=== PATIENT | female | born 1995 | race Caucasian/White ===

== ENCOUNTER 2021-02-04 08:09 | Day surgery (SDC) | payer OTHER, SELFPAY ==
[2021-02-04] VITALS (10 sets, daily range): BP systolic 90–128; BP diastolic 50–93; PULSE 79–105; RESP 14–18; TEMP 35.9–36.9; O2SAT 98–100
[2021-02-04] MEDS: SODIUM CHLORIDE 0.9% IV 1,000 ML 999 ML IV CONT (08:35)
[2021-02-04] MEDS: GLUCAGON FOR INJ 1 MG VIAL IV PUSH (08:36)
[2021-02-04] MEDS: ONDANSETRON INJ 4 MG/2 ML VIAL IV PUSH (08:36)
[2021-02-04] MEDS: NITROGLYCERIN OINTMENT 1 INCH DOSE TRANSDERM (08:38)
[2021-02-04] MEDS: Please add drug allergy info to patient profile. 1 EACH XX (08:39)
--- NOTE | 2021-02-04 09:06 | PC.NURSE ---
PT was feeling better, given water and unable to swallow.
[2021-02-04] MEDS: LACTATED RINGERS 1,000 ML 150 ML IV CONT (10:54)
--- NOTE | 2021-02-04 11:12 | P.PNAN_ITS ---
Anes - Initial Pre Proc Eval Procedure: Operation Date: 02/04/21 11:45 Proposed Procedures p Esophagogastroduodenoscopy - Darrel Mccullough MD Date/Time: 02/04/21 11:12 Surgeon: Darrel Mccullough MD Pre Op Diagnosis: food bolus Patient Data Age: 25 Gender: F Height: Weight: Last Vital Signs Temp 96.6 F L 02/04/21 10:32 Pulse 84 02/04/21 10:32 Resp 14 02/04/21 10:32 BP 101/63 02/04/21 10:32 Pulse Ox 100 02/04/21 10:32 Allergies Allergy/AdvReac Type Severity Reaction Status Date / Time Sulfa (Sulfonamide Allergy Hives Verified 02/04/21 10:24 Antibiotics) metoclopramide [From Reglan] AdvReac Shakiness Verified 02/04/21 10:24 Home Medications Medication Instructions Recorded Confirmed Type No Home Medications 02/04/21 02/04/21 History Patient hx anesthesia problems: none Family hx anesthesia problems: none Results Review: All pre-operative results and documents have been reviewed as part of the pre-operative evaluation. [facility] Past Medical History Medical History (Updated 02/04/21 @ 09:13 by Consuelo Álvarez) Eosinophilic esophagitis Esophageal dilatation History of esophageal dilatation Social History Social History (Updated 02/04/21 @ 08:21 by Edilia Guidry MD) Smoking status: Never smoker Anes - Eval Final PreProcedure Day of Procedure 02/04/21 11:12 Patient weight: normal Heart: regular rate and rhythm Lungs: clear to auscultation Airway: Mallampati scale class II Neurological: alert and oriented Last oral intake: >/= 8 hours ASA classification: II Emergent: no Anesthetic plan: proceed Anesthesia type and monitoring: general GIVS and standard monitoring Results Review: All pre-operative results and documents have been reviewed as part of the pre-operative evaluation. Informed Consent: The patient's anesthetic plan and its attendant risks and benefits were discussed with the patient/family/POA. Questions were solicited and answers provided to the satisfaction of the patient/family/POA.
--- NOTE | 2021-02-04 11:16 | PM.HPGS ---
History of Present Illness History of Present Illness Consent: Risks, benefits, and alternatives have been discussed and questions answered. Patient agrees to proceed with procedure. Chief complaint: food bolus Narrative: Maria R Blair is a 25 year old female with known history of EoE currently on no treatment and not longer seeing GI since she moved here from [place], still with intermittent dysphagia, today could not swallow after having breakfast- egg sandwich. She required urgent EGD x2 in the past because food bolus. Review of Systems Constitutional: Constitutional: Denies headache(s) and Denies weakness Eyes: Eyes: Denies blurry vision ENT: Reports Normal hearing present, Denies headache(s) and Denies neck pain Cardiovascular: Cardiovascular: Denies chest pain and Denies dyspnea Respiratory: Respiratory: Denies dyspnea Gastrointestinal: Gastrointestinal: Reports no additional gastrointestinal complaints Genitourinary: Genitourinary: Denies dysuria Musculoskeletal: Musculoskeletal: Denies neck pain Integumentary/Breasts: Skin/Breast: Denies dry skin Neurologic: Reports Normal hearing present, Denies headache(s) and Denies weakness Psychiatric: Psychiatric: Denies anxiety Endocrine: Endocrine: Denies change in body appearance Hematologic/Lymphatic: Hematologic/Lymphatic: Denies easy bleeding Allergic/Immunologic: Allergic/Immunologic: Denies urticaria PMFSH Past Medical History Medical History (Updated 02/04/21 @ 11:19 by Darrel Mccullough MD) Eosinophilic esophagitis Esophageal dilatation History of esophageal dilatation Social History Social History (Updated 02/04/21 @ 08:21 by Edilia Guidry MD) Smoking status: Never smoker Meds Home Medications and Allergies Home Medications Medication Instructions Recorded Confirmed Type No Home Medications 02/04/21 02/04/21 History Allergies Allergy/AdvReac Type Severity Reaction Status Date / Time Sulfa (Sulfonamide Allergy Hives Verified 02/04/21 10:24 Antibiotics) metoclopramide [From Reglan] AdvReac Shakiness Verified 02/04/21 10:24 Vital Signs Vital Signs - 24 hr 02/04/21 10:32 Temperature 96.6 F L Pulse Rate 84 Respiratory Rate 14 Blood Pressure 101/63 Pulse Oximetry 100 Exam Const: General: comfortable and no acute distress HENMT: General nose exam: Normal nares present Eyes: General: appearance normal, both eyes and all related structures Neck: Neck: no JVD Resp: Auscultation: clear to auscultation bilaterally Cardio: Rate: regular rate Rhythm: regular rhythm GI: Inspection: non-distended GI Palp: Yes Soft to palpation Skin: General skin exam: normal color Neuro: General: gait normal Speech: normal speech Extrem: General: normal to inspection Psych: Mental Status: mental status grossly normal Assessment and Plan Assessment and plan (1) Food impaction of esophagus: Code(s): T18.128A - Food in esophagus causing other injury, initial encounter Status: Acute Assessment and Plan: egd (2) Eosinophilic esophagitis: Code(s): K20.0 - Eosinophilic esophagitis Status: Inactive Assessment and Plan: will get bx and start treatment with ppi and also swallowed fluticasone
[2021-02-04] MEDS: BENZOCAINE (*SP) 60 ML SPRAY CAN (HURRICAINE) 1 SPRAY MUCOUS MEM (11:25)
--- NOTE | 2021-02-04 18:26 | ER_ITS ---
This report was moved to the correct visit, on 04/04/2021. Original report was signed by Edilia Guidry MD on 02/04/21 [id number]. HPI - General Adult General Chief complaint: Unspecified Stated complaint: food bolus, esophageal stricture per pt Time Seen by Provider: 02/04/21 08:11 Source: patient and RN notes reviewed Mode of arrival: ambulatory Limitations: no limitations History of Present Illness HPI narrative: This is a 25 year old female with history of eosinophilic esophagitis with stricture who presents for evaluation of food impaction. Patient states this morning approximately 1 hour ago her breakfast got stuck in her esophagus. She was eating a Mcgriddle and she feels like it is stuck in her mid chest. She tried to drink water but it immediately came back up. She is unable to tolerate her secretions for more than 5 minutes. She denies shortness of breath. She reports frequent issue with food getting stuck but she is usually able to get it to down with carbonated drinks. In 2018 , she had to get food removed. She does not regularly seen gastroenterology and she does not take any medications. Related Data Allergies Allergy/AdvReac Type Severity Reaction Status Date / Time Sulfa (Sulfonamide Allergy Hives Verified 02/04/21 10:24 Antibiotics) metoclopramide [From Reglan] AdvReac Shakiness Verified 02/04/21 10:24 Review of Systems Review of Systems: All systems reviewed & are unremarkable except as noted in HPI and below PMFSH Past Medical History Medical History (Updated 02/04/21 @ 11:21 by Darrel Mccullough MD) Eosinophilic esophagitis Esophageal dilatation History of esophageal dilatation Social History Social History (Updated 02/04/21 @ 08:21 by Edilia Guidry MD) Smoking status: Never smoker Exam Narrative: GENERAL: Well-appearing, well-nourished, and in no acute distress. HEAD: Normocephalic, atraumatic EYES: PERRLA and EOMI, conjunctiva clear without discharge NECK: Supple, without lymphadenopathy or mass RESPIRATORY: No respiratory distress, Airway patent, Respirations non-labored, Clear to auscultation without rales, rhonchi or wheeze HEART: Regular rate and rhythm. No murmur heard. Normal peripheral pulses. ABDOMEN: Soft, nontender, nondistended, normal active bowel sounds. No masses. No rebound or guarding, No organomegaly. EXTREMITIES: No edema, normal strength with full range of motion. SKIN: Warm, dry, normal color without rash NEURO: Alert and oriented x3. CN 2-12 grossly intact. No focal deficits. PSYCH: Normal mood and affect. Course Reevaluation(s) Reevaluation #1: Patient stated that she felt better. She attempted to drink water but had emesis again. I spoke with Dr. Mccullough who states he will perform EGD on patient. Date: 02/04/21 Time: 09:09 Vital Signs Vital signs: Vital Signs Pulse Rate 105 H 02/04/21 08:22 Respiratory Rate 18 02/04/21 08:22 Blood Pressure 128/93 H 02/04/21 08:22 Pulse Oximetry 100 02/04/21 08:22 Temperature 98.5 F 02/04/21 08:25 Pulse Rate 95 02/04/21 10:16 Respiratory Rate 14 02/04/21 10:16 Blood Pressure 107/68 02/04/21 10:16 Pulse Oximetry 99 02/04/21 10:16 Medical Decision Making Vital Signs Vital Signs: Vital Signs Pulse Rate 105 H 02/04/21 08:22 Respiratory Rate 18 02/04/21 08:22 Blood Pressure 128/93 H 02/04/21 08:22 Pulse Oximetry 100 02/04/21 08:22
== END 2021-02-04 10:49 ==
LOC: ANHENDO 11:32 → ANHED 04-05 12:32 → ANHSURGERY 04-05 12:36
PROVIDERS: Emergency Provider Internal Medicine Gastroenterology; Visit Provider Internal Medicine Gastroenterology
PROC: 0DJ08ZZ Inspection of Upper Intestinal Tract, Via Natural or Artificial Opening Endoscopic (ICD-10-PCS; CPT 43235; principal; 2021-02-04 11:45)
DX: T18.128A Food in esophagus causing other injury, initial encounter (principal); R13.19 Other dysphagia; K20.0 Eosinophilic esophagitis; K44.9 Diaphragmatic hernia without obstruction or gangrene
CPT/HCPCS: 43239; 43249; 81025; 88305; 96361; 96374; 96375; 99285; A9270; C1726; J1610; J2405; J2704; J7030; J7120

== ENCOUNTER 2021-08-22 09:05 | Outpatient (CLI) | payer OTHER, SELFPAY ==
[2021-08-22 09:25] LABS: Hematocrit 43.5 % (37.0-47.0); Hemoglobin 13.5 g/dL (12.0-15.0); Mean Corpuscular Hemoglobin 28.4 pg (26-34); Mean Corpuscular Volume 91.4 fl (80-100); Platelet Count Result 295 k/mm3 (150-375); Red Blood Count 4.76 M/mm3 (4.2-5.4); Red Cell Distribution Width 12.5 % (11.5-14.5); White Blood Count 5.9 K/mm3 (4.5-10.0)
== END 2021-08-22 09:06 | disposition home or self-care (01) ==
LOC: ANHLAB 09:08
PROVIDERS: Visit Provider Obstetrics & Gynecology Gynecology
DX: R53.83 Other fatigue (principal)
CPT/HCPCS: 36415; 85027

== ENCOUNTER → 2021-11-14 15:27 | Outpatient (CLI) | payer OTHER, SELFPAY ==
--- NOTE | ~2021-11-14 | US_ITS ---
EXAMINATION: US OB <= 14 weeks fetus DATE: 11/14/2021 15:53 INDICATION: with uncertain dates. TECHNIQUE: Real-time transabdominal pelvic ultrasound was performed. COMPARISON: None. FINDINGS: The uterus measures 7.3 x 6.9 x 7.3 cm. There is an intrauterine gestational sac. A yolk sac is ident ified. The crown rump length measures 2.6 cm, which correlates with an estimated gestational a ge of 9 weeks and 3 day(s) (+/-) 6 day(s). heart motion is identified measuring 168 beats per m inute (bpm) by M-mode Doppler. The right ovary measures 2.5 x 1.7 x 2.3 cm. The left ovary is not vis ualized. There is no free fluid in the pelvis. IMPRESSION: 1. Single living intrauterine gestation with estimated date of delivery of 06/16/2022. Reviewed, dictated and finalized at location A. IMPRESSION: 1. Single living intrauterine gestation with estimated date of delivery of 06/16.
== END ==
PROVIDERS: PCP Advanced Practice Midwife; Visit Provider Advanced Practice Midwife
DX: Z36.87 Encounter for antenatal screening for uncertain dates (principal)
CPT/HCPCS: 76801

== ENCOUNTER 2021-12-12 13:20 | Outpatient (CLI) | payer OTHER, SELFPAY ==
[2021-12-12 13:47] LABS: Basophils Absolute Auto 0.1 K/mm3 (0.0-0.1); Basophils Percent Auto 0.5 % (0.2-1.2); Eosinophils Absolute Auto 0.4 K/mm3 (0-0.3); Eosinophils Percent Auto 4.5 % (0-4.4); Hematocrit 34.8 % (37.0-47.0); Hemoglobin 11.2 g/dL (12.0-15.0); Immature Granulocyte Absolute 0.03 K/mm3 (0.00-0.031); Immature Granulocyte Percent A 0.3 % (0-0.5); Lymphocytes Percent Auto 18.9 % (18.3-44.2); Mean Corpuscular HGB Conc 32.2 g/dl (32-36); Mean Corpuscular Hemoglobin 28.9 pg (26-34); Mean Corpuscular Volume 89.7 fl (80-100); Mean Platelet Volume 10.2 fl (7.4-10.4); Monocytes Absolute Auto 0.5 K/mm3 (0.1-0.6); Monocytes Percent Auto 5.4 % (2.6-8.5); Neutrophils Absolute Auto 6.7 K/mm3 (1.3-6.7); Neutrophils Percent Auto 70.4 % (45.5-73.1); Platelet Count Result 285 k/mm3 (150-375); Red Blood Count 3.88 M/mm3 (4.2-5.4); Red Cell Distribution Width 13.4 % (11.5-14.5); White Blood Count 9.5 K/mm3 (4.5-10.0)
[2021-12-12 15:16] LABS: HIV 1/2 Ab P24 Ag Result Negative (Negative)
[2021-12-12 17:04] LABS: Vitamin D 25 Hydroxy 26.5 ng/mL
[2021-12-12 17:34] LABS: Hepatitis C Virus Antibody Negative (Negative)
[2021-12-13 07:10] LABS: Rapid Plasma Reagin Non-Reactive (NonReactive)
[2021-12-13 23:11] LABS: Hepatitis B Surface Antigen Negative (Negative)
== END 2021-12-12 13:21 | disposition home or self-care (01) ==
PROVIDERS: PCP Advanced Practice Midwife; Visit Provider Advanced Practice Midwife
DX: E55.9 Vitamin D deficiency, unspecified (principal); Z36.9 Encounter for antenatal screening, unspecified
CPT/HCPCS: 36415; 82306; 82728; 83036; 85025; 86592; 86703; 86762; 86803; 86850; 86900; 86901; 87340; G0432

== ENCOUNTER → 2022-01-17 15:48 | Outpatient (CLI) | payer OTHER, SELFPAY ==
--- NOTE | ~2022-01-17 | US_ITS ---
EXAMINATION: US OB /maternal detail DATE: 01/17/2022 16:23 INDICATION: survey TECHNIQUE: Multiple obstetric sonographic images performed. FINDINGS: . Ultrasound dated 11/14/2021 There is a single living fetus in vertex presentation. The placenta is anterior without placenta pre via. Placental margin measures 7.2 cm to the cervix. Cervical length is 3.1 cm. Amniotic fluid volume is subjectively normal. cardiac activity and movement is noted with a heart rate o f 145 beats per minute. The following anatomy was identified as normal: 4 chamber heart 3 vessel cord cord insertion kidneys urinary bladder stomach spine diaphragm ventricles cisterna magna cerebellum The following biometric data were obtained: BPD: 43mm corresponds to gestational age 19 weeks 1 days. Head circumference: 160 mm corresponds to gestational age 18 weeks 6 days. Abdominal circumference: 134 mm corresponds to gestational age 18 weeks 6 days. Femur length: 26 mm corresponds to gestational age 17 weeks 6 days. Head circumference to abdominal circumference ratio: 1.19 (normal range for expected gestational age is 1.09-1.26). Estimated weight: 242 grams +/- 36 grams using Hadlock method. IMPRESSION: 1: Single living intrauterine with an estimated gestational age of 18weeks 4days by initial ultrasound measurements, with an EDC of 06/16/2022 in vertex presentation. 2. Normal survey. Reviewed, dictated and finalized at location B. IMPRESSION: 1: Single living intrauterine with an estimated gestational age of 18 weeks 4days by initial ultrasound measurements, with an EDC of 06/16/2022 in ve rtex presentation. 2. Normal survey.
== END ==
PROVIDERS: Visit Provider Advanced Practice Midwife
DX: Z36.9 Encounter for antenatal screening, unspecified (principal); Z3A.18 18 weeks gestation of pregnancy
CPT/HCPCS: 76805

== ENCOUNTER 2022-03-20 11:14 | Observation (INO) | payer OTHER, SELFPAY ==
--- NOTE | ~2022-03-20 | US_ITS ---
EXAMINATION: US abdomen limited DATE: 03/20/2022 14:08 INDICATION: gallbladder, gallbladder pain TECHNIQUE: Multiple grayscale and Doppler ultrasound images of limited portions of the abdomen were o btained. COMPARISON: None available. FINDINGS: The visualized portions of the pancreas are normal. Pancreatic body and tail are obscured. The liver is mildly enlarged, with normal echogenicity and echotexture. No surface nodularity. Normal hepatopetal flow in the main portal vein. The gallbladder wall is borderline thickened at 3 mm. Gall bladder dilation. No stone, sludge, or pericholecystic fluid. The common bile duct measures 3 mm. The re was no sonographic Marr sign. IMPRESSION: Hepatomegaly. Mildly dilated gallbladder, with mild gallbladder wall thickening. Reviewed, dictated and finalized at location K. ARINE MAKER IMPRESSION: Hepatomegaly. Mildly dilated gallbladder, with mild gallbladder wall thickening .
[2022-03-20 11:47] VITALS: BP 121/75; PULSE 111
[2022-03-20 12:00] VITALS: BP 120/70; PULSE 118
[2022-03-20] MEDS: DEXTROSE 5%/LACTATED RINGERS 1,000 ML 999 ML IV CONT (12:19)
[2022-03-20 12:30] VITALS: BP 112/63; PULSE 102
[2022-03-20 12:40] VITALS: TEMP 36.8
[2022-03-20 12:40] LABS: Basophils Percent Auto 0.3 % (0.2-1.2); Eosinophils Absolute Auto 0.2 K/mm3 (0-0.3); Eosinophils Percent Auto 1.6 % (0-4.4); Hemoglobin 11.1 g/dL (12.0-15.0); Immature Granulocyte Absolute 0.08 K/mm3 (0.00-0.031); Immature Granulocyte Percent A 0.8 % (0-0.5); Lymphocytes Absolute Auto 0.91 K/mm3 (0.9-3.2); Lymphocytes Percent Auto 9.4 % (18.3-44.2); Mean Corpuscular HGB Conc 32.6 g/dl (32-36); Mean Corpuscular Hemoglobin 27.5 pg (26-34); Mean Corpuscular Volume 84.2 fl (80-100); Mean Platelet Volume 10.3 fl (7.4-10.4); Monocytes Absolute Auto 0.8 K/mm3 (0.1-0.6); Monocytes Percent Auto 7.7 % (2.6-8.5); Neutrophils Absolute Auto 7.8 K/mm3 (1.3-6.7); Neutrophils Percent Auto 80.2 % (45.5-73.1); Platelet Count Result 314 k/mm3 (150-375); Red Blood Count 4.04 M/mm3 (4.2-5.4); Red Cell Distribution Width 13.3 % (11.5-14.5); White Blood Count 9.7 K/mm3 (4.5-10.0)
[2022-03-20] MEDS: ONDANSETRON INJ 4 MG/2 ML VIAL IV PUSH (12:44)
[2022-03-20 13:02] LABS: Alanine Aminotransferase 20 U/L (6-35); Albumin Level 3.6 g/dL (3.5-5.1); Alkaline Phosphatase 94 U/L (38-126); Anion Gap 7 mmol/L (8-16); Aspartate Amino Transferase 22 U/L (14-36); Bilirubin,Total 0.4 mg/dL (0.2-1.3); Blood Urea Nitrogen 5 mg/dL (7-17); Calcium 8.2 mg/dL (8.4-10.2); Carbon Dioxide 20 mmol/L (22-30); Chloride 108 mmol/L (98-107); Estimated Glomerular Filt Rate > 60; Glucose 87 mg/dL (65-110); Potassium 3.4 mmol/L (3.4-5.0); Sodium 135 mmol/L (137-145); Uric Acid 3.3 mg/dL (2.5-7.5)
[2022-03-20 13:05] LABS: Appearance Urine Clear (Clear); Bilirubin Urine Negative (Negative); Blood Urine Negative (Negative); Color Urine Yellow (Yellow); Glucose Urine UA Trace mg/dL (Negative); Ketones Urine 2+ mg/dL (Negative); Leukocyte Esterase Ur Negative LEU/UL (Negative); Nitrate Urine Negative (Negative); Protein Urine 1+ mg/dL (Negative); Specific Grav Ur 1.025 (1.001-1.035)
[2022-03-20 13:09] LABS: Bacteria Urine Trace /hpf; Mucus Urine Rare /lpf; RBC Urine 0-2 /hpf (0-2); Squamous Epithelial Cell Urine Rare /hpf (Few); WBC Urine 0-3 /hpf
[2022-03-20 13:11] LABS: Add Urine Microscopic? YES
[2022-03-20 13:42] VITALS: BMI 30.4
--- NOTE | 2022-03-20 13:43 | OBADM ---
This patient, Maria R Blair, admitted to the OB room OB Post 115 for observation. Patient/family oriented to hospital policies and general routines including ID bracelet, bed and alarms, visiting hours, pain management, procedures, bathroom and other care routines, personal items, smoking policy, room service/diet, and visiting hours. Patient/Family are encouraged to report perceived risks to care and to ask questions if they do not understand what they are told or what they should do.
--- NOTE | 2022-03-24 09:07 | PM.OBTRLD ---
OB - Triage/Final Diagnosis Visit Information Reason for evaluation: other (nausea with vomiting and dehydration) Comments/Additional reasons for admission: I have assessed the risk for this patient, Maria R Blair, and determined that she would benefit from observation care. Evaluation Laboratory results: Laboratory Tests 03/20/22 03/20/22 03/20/22 12:21 12:21 12:51 WBC 9.7 RBC 4.04 L Hgb 11.1 L Hct 34.0 L MCV 84.2 MCH 27.5 MCHC 32.6 RDW 13.3 Plt Count 314 MPV 10.3 Immature Gran % (Auto) 0.8 H Neut % (Auto) 80.2 H Lymph % (Auto) 9.4 L [place] % (Auto) 7.7 Eos % (Auto) 1.6 Baso % (Auto) 0.3 Lymph # (Auto) 0.91 [place] # (Auto) 0.8 H Eos # (Auto) 0.2 Baso # (Auto) 0.0 Abs Immat Gran (auto) 0.08 H Absolute Neuts (auto) 7.8 H Absolute Nucleated RBC 0.0 Nucleated RBC % 0.0 Sodium 135 L Potassium 3.4 Chloride 108 H Carbon Dioxide 20 L Anion Gap 7 L BUN 5 L Creatinine 0.50 L Estim Creat Clear Calc Not Reportable Estimated GFR > 60 Glucose 87 Uric Acid 3.3 Calcium 8.2 L Total Bilirubin 0.4 AST 22 ALT 20 Alkaline Phosphatase 94 Total Protein 7.0 Albumin 3.6 Urine Color Yellow Urine Appearance Clear Urine pH 6.0 Ur Specific [place] 1.025 Urine Protein 1+ H Urine Glucose (UA) Trace H Urine Ketones 2+ H Ur Blood (Man) Negative Urine Nitrate Negative Urine Bilirubin Negative Urine Urobilinogen 1.0 Leukocyte Esterase Rfl Negative Urine RBC 0-2 Urine WBC 0-3 Ur Squamous Epith Cells Rare Urine Bacteria Trace Urine Mucus Rare
== END 2022-03-20 14:45 | disposition home or self-care (01) ==
PROVIDERS: Admitting Provider Obstetrics & Gynecology Gynecology; Visit Provider Obstetrics & Gynecology Gynecology
DX: O21.9 Vomiting of pregnancy, unspecified (principal); O99.282 Endocrine, nutritional and metabolic diseases complicating pregnancy, second trimester; E86.0 Dehydration; Z3A.27 27 weeks gestation of pregnancy
CPT/HCPCS: 36415; 76705; 80053; 81001; 84550; 85025; 96374; G0378; G0379; J2405; J7121

== ENCOUNTER 2022-04-01 09:47 | Outpatient (CLI) | payer OTHER, SELFPAY ==
[2022-04-01 11:39] LABS: Glucose 1 Hour PP 50gm Dose 159 mg/dL
[2022-04-01 12:20] LABS: HIV 1/2 Ab P24 Ag Result Negative (Negative)
[2022-04-01 12:51] LABS: Vitamin D 25 Hydroxy 44.1 ng/mL
== END 2022-04-01 09:48 | disposition home or self-care (01) ==
LOC: ANHLAB 09:49
PROVIDERS: Visit Provider Obstetrics & Gynecology Gynecology
DX: Z34.93 Encounter for supervision of normal pregnancy, unspecified, third trimester (principal)
CPT/HCPCS: 36415; 82306; 82947; 85014; 85018; 86703; G0432

== ENCOUNTER 2022-05-29 14:14 | Observation (INO) | payer OTHER, SELFPAY ==
--- NOTE | 2022-06-03 11:40 | PM.OBTRLD ---
OB - Triage/Final Diagnosis Visit Information Reason for evaluation: threatened labor ( with possible rupture of membrane) Comments/Additional reasons for admission: I have assessed the risk for this patient, Maria R Blair, and determined that she would benefit from observation care.
== END 2022-05-29 16:28 | disposition home or self-care (01) ==
PROVIDERS: Admitting Provider Advanced Practice Midwife; Visit Provider Obstetrics & Gynecology Gynecology
DX: O47.03 False labor before 37 completed weeks of gestation, third trimester (principal); Z3A.37 37 weeks gestation of pregnancy
CPT/HCPCS: G0378; G0379

== ENCOUNTER 2022-06-07 16:30 | Outpatient (RCR) | payer OTHER, SELFPAY ==
[2022-04-27 16:11] VITALS: BP 117/67; PULSE 105
[2022-04-30 09:55] VITALS: BP 113/65; PULSE 98
[2022-05-03 17:05] VITALS: BP 109/68; PULSE 111
[2022-05-06 12:19] VITALS: BP 110/65; PULSE 101
[2022-05-09 17:18] VITALS: BP 112/71; PULSE 106
[2022-05-13 11:07] VITALS: BP 125/75; PULSE 99
[2022-05-16 14:38] VITALS: BP 116/67; PULSE 97
[2022-05-19 17:55] VITALS: BP 114/72; PULSE 95
[2022-05-24 17:00] VITALS: BP 110/72; PULSE 97
[2022-05-24 17:15] VITALS: BP 111/72; PULSE 98
[2022-05-24 17:30] VITALS: BP 109/70; PULSE 92
[2022-05-24 17:45] VITALS: BP 108/71; PULSE 94
[2022-05-24 17:59] VITALS: BP 111/72; PULSE 97
[2022-05-27 14:28] VITALS: BP 108/58; PULSE 63
[2022-06-01 18:21] VITALS: BP 120/71; PULSE 107
[2022-06-04 09:36] VITALS: BP 115/69; PULSE 103
--- NOTE | ~2022-06-07 | US_ITS ---
EXAMINATION: US OB follow up DATE: 05/03/2022 17:03 INDICATION: Gestational diabetes. Third trimester. TECHNIQUE: Real-time ultrasound of the pelvis was performed. COMPARISON: Ultrasound 01/17/2022, 11/14/2021 FINDINGS: There is a single living fetus in vertex presentation. The placenta is anterior and fundal. he art rate is 145 beats per minute (bpm). The amniotic fluid index is 10.9 cm, which is normal. The cer vical length is normal on transabdominal images. The following biometric data were obtained: Biparietal diameter (BPD): 8.7 cm; head circumference (HC): 31.4 cm; abdominal circumference (AC): 31 .2 cm; femur length (FL): 6.9 cm. These measurements are concordant. Estimated weight is 2618 g +/- 393 g, which correlates with the 85th percentile when 06/16/22 is used as estimated date of delivery. As single measurements, these parameters are each equal to the following estimated gestational ages: BPD: 35 weeks 1 days. HC: 35 weeks 2 days. AC: 35 weeks 1 days. FL: 35 weeks 2 days. estimated gestational age based solely on measurements from this exam is 35 weeks 2 days +/- 2 weeks 3 days. IMPRESSION: 1. Single living fetus in vertex presentation. 2. Estimated weight is 2618 g +/- 393 g, which correlates with the 85th percentile when 06/16/22 is used as estimated date of delivery. This date was set by ultrasound on 11/14/2021. Reviewed, dictated and finalized at location A. NESS TRAINER
--- NOTE | ~2022-06-07 | US_ITS ---
US OB limited, US umbilical doppler 06/01/2022 18:09 Indication: Intermittent lower abdominal pain Procedure: High-resolution Limited obstetrical ultrasound including umbilical Doppler examination Comparison: No prior studies for comparison. Findings: There is a single living intrauterine in vertex presentation. heart rate is 136 BPM. Placenta is anterior without previa. Amniotic fluid volume is normal measuring 14.4 cm. Umbilical artery pulsed Doppler demonstrates peak systolic to end-diastolic velocity ratios (S/D rati os) average 2.4 which is within normal limits. Impression: 1: Single living intrauterine in vertex presentation. 2: Normal umbilical Doppler examination. Reviewed, dictated and finalized at location A. Impression: 1: Single living intrauterine in vertex presentation. 2: Normal umbilical Doppler examination. Impression: 1: Single living intrauterine in vertex presentation. 2: Normal umbilical Doppler examination.
== END 2022-07-01 19:50 | disposition home or self-care (01) ==
LOC: ANHOBOP 16:30
PROVIDERS: Visit Provider Obstetrics & Gynecology Gynecology
DX: O24.419 Gestational diabetes mellitus in pregnancy, unspecified control (principal); Z3A.32 32 weeks gestation of pregnancy; Z3A.33 33 weeks gestation of pregnancy; Z3A.34 34 weeks gestation of pregnancy; Z3A.35 35 weeks gestation of pregnancy; Z3A.36 36 weeks gestation of pregnancy; Z3A.37 37 weeks gestation of pregnancy; Z3A.38 38 weeks gestation of pregnancy
CPT/HCPCS: 59025; 76815; 76816; 76820

== ENCOUNTER 2022-06-09 00:06 | Inpatient (IN) | payer OTHER, SELFPAY ==
[2022-06-09] VITALS (119 sets, daily range): BP systolic 66–137; BP diastolic 40–105; PULSE 67–137; RESP 16–18; TEMP 36.3–37.1; O2SAT 96–100; BMI 33.3
--- NOTE | 2022-06-09 00:24 | LDADM ---
This patient, Maria R Blair, was admitted to Labor/Delivery/Recovery 105 on 06/09/22 at 00:06. Plans for labor, pain management and were discussed with patient. Patient/family oriented to hospital policies and general routines including ID bracelet, bed and alarms, visiting hours, pain management, procedures, bathroom and other care routines, personal items, smoking policy, room service/diet and guest tray routines, infant security routines, and visiting hours. Patient/Family are encouraged to report perceived risks to care and to ask questions if they do not understand what they are told or what they should do. See OBIX for further documentation.
[2022-06-09 00:39] LABS: Glucose Point of Care 128 mg/dl (65-105)
[2022-06-09 01:27] LABS: Basophils Absolute Auto 0.1 K/mm3 (0.0-0.1); Basophils Percent Auto 0.8 % (0.2-1.2); Eosinophils Absolute Auto 0.4 K/mm3 (0-0.3); Eosinophils Percent Auto 3.7 % (0-4.4); Hematocrit 36.9 % (37.0-47.0); Hemoglobin 11.7 g/dL (12.0-15.0); Immature Granulocyte Absolute 0.06 K/mm3 (0.00-0.031); Immature Granulocyte Percent A 0.6 % (0-0.5); Lymphocytes Percent Auto 23.9 % (18.3-44.2); Mean Corpuscular HGB Conc 31.7 g/dl (32-36); Mean Corpuscular Hemoglobin 27.1 pg (26-34); Mean Corpuscular Volume 85.4 fl (80-100); Mean Platelet Volume 10.4 fl (7.4-10.4); Monocytes Absolute Auto 0.9 K/mm3 (0.1-0.6); Monocytes Percent Auto 8.8 % (2.6-8.5); Neutrophils Absolute Auto 6.2 K/mm3 (1.3-6.7); Neutrophils Percent Auto 62.2 % (45.5-73.1); Platelet Count Result 283 k/mm3 (150-375); Red Blood Count 4.32 M/mm3 (4.2-5.4); Red Cell Distribution Width 16.5 % (11.5-14.5)
[2022-06-09] MEDS: LACTATED RINGERS 1,000 ML 125 ML IV CONT ×3 (01:42→10:35)
[2022-06-09] MEDS: OXYTOCIN 30 UNITS/NS 500 ML 30 UNITS/500 ML BAG IV CONT (01:45)
[2022-06-09 04:45] LABS: Glucose Point of Care 90 mg/dl (65-105)
--- NOTE | 2022-06-09 07:03 | WPDANESEPP ---
Anes - Eval Pre Procedure Procedure: labor epidural Date/Time: 06/09/22 07:03 Surgeon: alfred Preop Diagnosis: pain during labor Pre Op Diagnosis: IOL Patient Data Age: 26 Gender: F Height: 1.6 m Weight: 85.45 kg Last Vital Signs Temp 36.6 C 06/09/22 04:30 Pulse 85 06/09/22 07:01 Resp 16 06/09/22 04:30 BP 128/76 06/09/22 07:01 O2 Del Method Room Air 06/09/22 00:22 Allergies Allergy/AdvReac Type Severity Reaction Status Date / Time Sulfa (Sulfonamide Allergy Hives Verified 05/27/22 13:33 Antibiotics) metoclopramide [From [facility]] AdvReac Shakiness Verified 05/27/22 13:33 Home Medications Medication Instructions Recorded Confirmed Type doxylamine succinate 25 mg tablet 25 mg PO HS PRN Sleep 03/20/22 05/13/22 History (Unisom (doxylamine)) omeprazole 40 mg capsule,delayed 40 mg PO DAILY PRN Heartburn 03/20/22 06/01/22 History release ondansetron HCl 4 mg tablet 4 mg PO Q6H PRN Nausea And Vomiting 03/20/22 06/01/22 History prenat.vits,anna,jvu-dxyr-rarev 1 tablet PO DAILY 03/20/22 05/13/22 History pyridoxine (vitamin B6) 25 mg 25 mg PO DAILY 03/20/22 05/13/22 History tablet cholecalciferol (vitamin D3) 1,250 1,250 mcg PO WEEKLY 04/27/22 06/01/22 History mcg (50,000 unit) capsule insulin NPH isoph U-100 human 100 24 unit subcut HS 04/27/22 05/24/22 History unit/mL subcutaneous suspension (Humulin N NPH U-100 Insulin (isophane susp)) Laboratory Tests 06/09/22 06/09/22 06/09/22 00:20 00:20 00:20 WBC 10.0 K/mm3 K/mm3 (4.5-10.0) RBC 4.32 M/mm3 M/mm3 (4.2-5.4) Hgb 11.7 g/dL L g/dL (12.0-15.0) Hct 36.9 % L % (37.0-47.0) MCV 85.4 fl fl (80-100) MCH 27.1 pg pg (26-34) MCHC 31.7 g/dl L g/dl (32-36) RDW 16.5 % H % (11.5-14.5) Plt Count 283 k/mm3 k/mm3 (150-375) MPV 10.4 fl fl (7.4-10.4) Immature Gran % (Auto) 0.6 % H % (0-0.5) Neut % (Auto) 62.2 % % (45.5-73.1) Lymph % (Auto) 23.9 % % (18.3-44.2) Gem % (Auto) 8.8 % H % (2.6-8.5) Eos % (Auto) 3.7 % % (0-4.4) Baso % (Auto) 0.8 % % (0.2-1.2) Lymph # (Auto) 2.40 K/mm3 K/mm3 (0.9-3.2) Gem # (Auto) 0.9 K/mm3 H K/mm3 (0.1-0.6) Eos # (Auto) 0.4 K/mm3 H K/mm3 (0-0.3) Baso # (Auto) 0.1 K/mm3 K/mm3 (0.0-0.1) Abs Immat Gran (auto) 0.06 K/mm3 H K/mm3 (0.00-0.031) Absolute Neuts (auto) 6.2 K/mm3 K/mm3 (1.3-6.7) Absolute Nucleated RBC 0.0 K/mm3 K/mm3 (0.0-0.012) Nucleated RBC % 0.0 % % (0.0-0.2) POC Capillary Glucose RPR Pending Blood Type B Positive Antibody Screen Negative 06/09/22 06/09/22 00:33 04:35 WBC RBC Hgb Hct MCV MCH MCHC RDW Plt Count MPV Immature Gran % (Auto) Neut % (Auto) Lymph % (Auto) Gem % (Auto) Eos % (Auto) Baso % (Auto) Lymph # (Auto) Gem # (Auto) Eos # (Auto) Baso # (Auto) Abs Immat Gran (auto) Absolute Neuts (auto) Absolute Nucleated RBC Nucleated RBC % POC Capillary Glucose 128 mg/dl H mg/dl 90 mg/dl mg/dl (65-105) (65-105) RPR Blood Type Antibody Screen Patient hx anesthesia problems: none Family hx anesthesia problems: none Results Review: All pre-operative results and documents have been reviewed as part of the pre-operative evaluation. [facility] Past Medical History Medical History (Updated 06/09/22 @ 07:05 by Abigail Christianson, BEN) Dysphagia Eosinophilic esophagitis Esophageal dilatation Gestational diabetes insipidus History of esophageal dilatation IUP (intrauterine ), incide
--- NOTE | 2022-06-09 07:47 | WPDOBADMIT ---
Obstetrics - Admit Note Admission Note: record reviewed. No pertinent additions to the history and/or any subsequent changes in the physical findings that are not consistent with the expected course of the were found. Additions to the history and/or subsequent changes in the physical findings follow. None.
--- NOTE | 2022-06-09 07:47 | PM.OBPNLAB ---
Pain Control Date/time seen: 06/09/22 07:35 Pain control: tolerating well Pelvic Exam Dilation (cm): 3 Effacement (%): 70 station: -3 Amniotic membrane status: Intact Comments: head well applied to cervix. Contractions Monitor mode: External Contraction pattern: Irregular Status status: Category l Assessment and Plan Pitocin rate (mU/min): 14 Assessment: induction ongoing Comments: CNM to bedside. Discussed plan of care an option for amniotomy and IUPC placement. Discussed risks, benefits, and expectations of breaking water. Patient is agreeable. Amniotomy performed and there was a moderate return of clear amniotic fluid. IUPC placed easily and clear fluid returned. Patient tolerated procedure well. Continue pitocin infusion. Anticipate vaginal .
--- NOTE | 2022-06-09 07:49 | PM.OBPRVD ---
OB - Delivery Note Procedure Delivery date: 06/09/22 Procedure: Events: Gestational Diabetes (GDMA2) Induction method: Per Pitocin Protocol Delivery augmentation: Rupture of Membranes Delivery monitor: External FHT, External Uterine and Internal Uterine Route of delivery: Episiotomy description: None Laceration Description: Perineal - 2nd Degree Delivery repair: vicryl Specimen: Yes Anesthesia type: Epidural Disposition: Floor Narrative: Pt arrived for IOL 2/2 gestational diabetes at term. Pitocin was started. She quickly progressed to complete dilation and began pushing with contractions. She brought the head to a crown and there was spontaneous delivery of the head, followed by fair restitution. The anterior and posterior shoulders were delivered without incident, followed by the remainder of the infant. The was placed on maternal abdomen and care was transferred to the nursery team. After 1 minute of life the cord was doubly clamped and cut. Cord blood and cord gases were obtained as well as a cord segment. A second-degree perineal laceration was repaired in usual fashion. There was excellent hemostasis. Mother and baby skin to skin at the completion of this note. weight has not been obtained at the time of this note. All delivery counts correct Baby Date of : 06/09/22 Time of : 13:56 Weeks of gestation at delivery: 39 Infant gender: Female presentation: vertex position: Left Occiput Anterior Placenta delivery description: Spontaneous Cord Vessel Description: 3 Vessels, Clamped/Cut and Delayed Cord Clamping score one minute: 9 score five minutes: 9
--- NOTE | 2022-06-09 07:49 | PM.OBDSVD ---
DS: Admitting Diagnosis Discharge Date 06/10/2022 Admitting Diagnosis 26 y.o. at 39 weeks 0 days gestation GDMA2 Anxiety/Depression (hx of PP depression) Eosinophilic Esophagitis DS: Discharge Diagnosis Discharge Diagnosis (1) Gestational diabetes insipidus: Code(s): O99.280 - Endocrine, nutritional and metabolic diseases complicating , unspecified trimester; E23.2 - Diabetes insipidus Status: Acute (2) Eosinophilic esophagitis: Code(s): K20.0 - Eosinophilic esophagitis Status: Acute (3) (normal spontaneous vaginal delivery): Code(s): O80 - Encounter for full-term uncomplicated delivery Status: Acute (4) Mother currently breast-feeding: Code(s): Z39.1 - Encounter for care and examination of lactating mother Status: Acute (5) Anxiety: Code(s): F41.9 - Anxiety disorder, unspecified Status: Acute (6) Depression: Code(s): F32.A - Depression, unspecified Status: Acute OB - DS: Summary OB Procedures : NST and Ultrasound OB Procedures Intrapartum: Spontaneous Vag Delivery OB Procedures: : None Peripartum Data Laceration Description: Perineal - 2nd Degree Episiotomy description: None complications: none Time Spent with Patient Time attestation: Total time spent providing and/or coordinating discharge services: DS: Data Data Completed and Pending Labs on day of discharge: Labs from last 24 hours 06/09/22 06/09/22 06/09/22 04:35 00:33 00:20 WBC RBC Hgb Hct MCV MCH MCHC RDW Plt Count MPV Immature Gran % (Auto) Neut % (Auto) Lymph % (Auto) [place] % (Auto) Eos % (Auto) Baso % (Auto) Lymph # (Auto) [place] # (Auto) Eos # (Auto) Baso # (Auto) Abs Immat Gran (auto) Absolute Neuts (auto) Absolute Nucleated RBC Nucleated RBC % POC Capillary Glucose 90 128 H RPR Blood Type B Positive Antibody Screen Negative 06/09/22 06/09/22 00:20 00:20 WBC 10.0 RBC 4.32 Hgb 11.7 L Hct 36.9 L MCV 85.4 MCH 27.1 MCHC 31.7 L RDW 16.5 H Plt Count 283 MPV 10.4 Immature Gran % (Auto) 0.6 H Neut % (Auto) 62.2 Lymph % (Auto) 23.9 [place] % (Auto) 8.8 H Eos % (Auto) 3.7 Baso % (Auto) 0.8 Lymph # (Auto) 2.40 [place] # (Auto) 0.9 H Eos # (Auto) 0.4 H Baso # (Auto) 0.1 Abs Immat Gran (auto) 0.06 H Absolute Neuts (auto) 6.2 Absolute Nucleated RBC 0.0 Nucleated RBC % 0.0 POC Capillary Glucose RPR Pending Blood Type Antibody Screen Discharge Plan Discharge Attending physician on discharge: Bob Gifford Consulting providers: Abigail Christianson ; Roxanne Ornelas Discharging Clinician: Bob Gifford Anticipated Discharge Date/Time: 06/10/22 10:20 Patient Disposition: Home, Self-Care Activity: no shower and may shower Diet: as tolerated and regular Discharge Instructions: Continue taking your vitamin and any other supplements as previously directed (Examples: Iron, Vitamin D). You may take Tylenol 1000mg over the counter every 6 hours as needed for pain. Do not exceed 4000mg of Tylenol daily. You may continue using tucks pads and dermoplast spray if needed for a few more days. Education: Mom and Baby Guide Given to: Mother Follow-Up: Call your delivering provider's office for an appointment to be seen in: Call office for appointment Mom and baby should come to the [facility] for the follow-up appointment. Appointment Date/Time: June 12, 2022 at 2:30 am What to expect at your follow-up visit: Physical Assessment Call [phone] if you are unable to keep your appointment time. BREAST CARE: * Wear a snug supportive bra. * For engorgement discomfort: Breast Feeding: * Apply warm moist washcloths * Express milk as needed to relieve engorgement * Wear loose clothing *
[2022-06-09 08:34] LABS: Glucose Point of Care 84 mg/dl (65-105)
[2022-06-09 12:33] LABS: Glucose Point of Care 99 mg/dl (65-105)
[2022-06-09] MEDS: ONDANSETRON INJ 4 MG/2 ML VIAL IV PUSH (12:54)
[2022-06-09 13:50] LABS: Rapid Plasma Reagin Non-Reactive (NonReactive)
[2022-06-09] MEDS: OXYTOCIN 30 UNITS/NS 500 ML 30 UNITS/500 ML BAG 125 UNITS IV CONT (14:22)
[2022-06-09] MEDS: IBUPROFEN 600 MG TABLET PO (16:24)
[2022-06-09] MEDS: LANOLIN (LANSINOH) 7.5 GM CREAM 1 APPLIC TOPICAL (23:38)
[2022-06-10 03:59] VITALS: BP 94/63; PULSE 83; RESP 18; TEMP 36.5; O2SAT 98
[2022-06-10 04:30] LABS: Hematocrit 35.4 % (37.0-47.0); Hemoglobin 11.3 g/dL (12.0-15.0)
[2022-06-10] MEDS: IBUPROFEN 600 MG TABLET PO (07:59)
[2022-06-10] MEDS: MULTIVIT/MIN/PREN/FOL AC/IRON TABLET 1 TAB PO (07:59)
[2022-06-10 08:00] VITALS: BP 114/78; PULSE 84; RESP 16; TEMP 36.8; O2SAT 99
[2022-06-10] MEDS: DOCUSATE SODIUM 100 MG CAPSULE PO (08:06)
[2022-06-10 08:20] LABS: Glucose Point of Care 81 mg/dl (65-105)
--- NOTE | 2022-06-10 10:17 | PM.OBPNVD ---
OB - PN: Subj Subjective Date/time seen: 06/10/22 10:17 Patient comments: pain well controlled, tolerating diet and other (Decreasing lochia.) baby status: doing well and nursing well [place] feeding status: exclusively breast feeding OB - PN: Obj Data Labs 06/10/22 03:31 Labs: Laboratory Results - last 24 hr 06/09/22 06/09/22 06/10/22 00:20 12:28 03:31 Hgb 11.3 L Hct 35.4 L POC Capillary Glucose 99 RPR Non-reactive 06/10/22 08:18 Hgb Hct POC Capillary Glucose 81 RPR OB - PN A/P Assessment and Plan (1) Delivery normal: Code(s): O80 - Encounter for full-term uncomplicated delivery Status: Acute Assessment and Plan: PPD1 s/p . She is doing well. Normal fasting glucose. She request discharge today. Discharge precautions discussed. Plan day: 1 Plan: routine care Comments: Patient doing well. Time Spent With Patient Time: Total time spent is greater than 50% in coordination of care (as documented) at patient's floor/unit and/or counseling patient: Exam Psych: Affect: normal affect Other: Abd: fundus firm below umbilicus, nontender Perineum: healing Ext: nontender
[2022-06-10 12:00] VITALS: BP 109/73; PULSE 95; RESP 16; TEMP 36.6; O2SAT 100
--- NOTE | 2022-06-10 13:28 | PC.NURSE ---
Patient instructed on viewing the discharge video Mother & Baby Care, The First Two Weeks . Patient was given the opportunity and encouraged to ask questions. Patient verbalized understanding of information shared and has been given the mother/baby guide for home reference.
--- NOTE | 2022-06-10 13:47 | WPDANLDPN2 ---
Anes-Prog Note L&D Date/Time: 06/10/22 13:47 Comfortable throughout: labor and delivery Neuraxial method: epidural Epidural/Spinal procedure site: clean & non-tender Neuro status: Neuro function grossly intact. Cardiovascular status: normal Respiratory status: normal Airway patency: baseline Mental status: baseline Post-Op hydration status: normal Vital Signs: Last Vital Signs Temp 97.9 F 06/10/22 12:00 Pulse 95 06/10/22 12:00 Resp 16 06/10/22 12:00 BP 109/73 06/10/22 12:00 Pulse Ox 100 06/10/22 12:00 O2 Del Method Room Air 06/09/22 19:45 Pain score (VAS): 0 I/O: Intake & Output 06/09/22 06/10/22 06/10/22 23:59 07:59 15:59 Intake Total 500 240 Output Total 745 Balance -245 240 Post-procedural complaints: none Patient feedback: Patient satisfied with anesthetic care.
[2022-06-12 09:19] VITALS: BP 119/71; PULSE 84; RESP 18; TEMP 37; O2SAT 100
== END 2022-06-10 15:22 | disposition home or self-care (01) | DRG 807 ==
LOC: ANHLDR 07:52 → ANHOB2 06-10 10:20 → ANHLDR 06-12 12:13 → ANHOB2 06-12 12:13
PROVIDERS: Admitting Provider Obstetrics & Gynecology Gynecology; Visit Provider Advanced Practice Midwife
DX: O24.429 Gestational diabetes mellitus in childbirth, unspecified control (principal); Z37.0 Single live birth; O70.1 Second degree perineal laceration during delivery; O76 Abnormality in fetal heart rate and rhythm complicating labor and delivery; Z3A.39 39 weeks gestation of pregnancy
CPT/HCPCS: 36415; 82948; 85014; 85018; 85025; 86592; 86850; 86900; 86901; 88307; A9270; J2405; J2590; J2795; J7120

== ENCOUNTER 2023-12-05 08:52 | Outpatient (CLI) | payer BC, SELFPAY ==
[2023-12-05 18:49] LABS: Hematocrit 48.8 % (37.0-47.0); Hemoglobin 15.4 g/dL (12.0-15.0); Mean Corpuscular HGB Conc 31.6 g/dl (32-36); Mean Corpuscular Hemoglobin 29.2 pg (26-34); Mean Corpuscular Volume 92.6 fl (80-100); Mean Platelet Volume 12.3 fl (7.4-10.4); Platelet Count Result 250 k/mm3 (150-375); Red Blood Count 5.27 M/mm3 (4.2-5.4); Red Cell Distribution Width 12.7 % (11.5-14.5); White Blood Count 5.8 K/mm3 (4.5-10.0)
[2023-12-05 19:24] LABS: Erythrocyte Sedimentation Rate 1 mm/hr (0-20)
[2023-12-05 19:40] LABS: Alanine Aminotransferase 17 U/L (6-35); Alkaline Phosphatase 70 U/L (38-126); Anion Gap 14 mmol/L (4-12); Aspartate Amino Transferase 57 U/L (14-36); Bilirubin,Total 0.7 mg/dL (0.2-1.3); Blood Urea Nitrogen 12 mg/dL (7-17); Calcium 9.3 mg/dL (8.4-10.2); Carbon Dioxide 24 mmol/L (22-30); Chloride 101 mmol/L (98-107); Cholesterol 142 mg/dL (0-200); Estimated Glomerular Filt Rate > 60; Glucose 71 mg/dL (65-110); HDL Direct 42 mg/dL; Potassium 4.2 mmol/L (3.4-5.0); Sodium 139 mmol/L (137-145); Triglycerides 93 mg/dL (<150)
[2023-12-05 19:51] LABS: LDL Cholesterol Direct 73 mg/dL
[2023-12-05 20:09] LABS: Thyroid Stimulating Hormone 0.972 uIU/mL (0.465-4.680)
[2023-12-05 20:30] LABS: Hemoglobin A1C 5.4 % (<5.7)
[2023-12-06 14:43] LABS: ANA Cascade Screen NEGATIVE (NEGATIVE)
[2023-12-07 20:43] LABS: HLA B27 NEGATIVE (NEGATIVE)
== END 2023-12-05 08:53 | disposition home or self-care (01) ==
LOC: ANHBWCLAB 08:54
PROVIDERS: PCP Nurse Practitioner Adult Health; Visit Provider Nurse Practitioner Adult Health
DX: Z13.9 Encounter for screening, unspecified (principal); Z86.32 Personal history of gestational diabetes; Z83.2 Family history of diseases of the blood and blood-forming organs and certain disorders involving the immune mechanism
CPT/HCPCS: 36415; 80053; 80061; 83036; 84443; 85027; 85652; 86038; 86225; 86235; 86364; 86812

== ENCOUNTER 2023-12-13 14:14 | Outpatient (CLI) | payer BC, SELFPAY ==
--- NOTE | ~2023-12-13 | US_ITS ---
EXAMINATION: US pelvic complete DATE: 12/13/2023 14:36 INDICATION: Pelvic pain. TECHNIQUE: Multiple transabdominal sonographic images of the pelvis were obtained. COMPARISON: None. FINDINGS: The uterus measures 6.9 x 5.1 x 4.1 cm. There is physiologic free fluid in the pelvis. The endometria l complex measures 3 mm in thickness. There is an intrauterine device in expected position. The right ovary measures 2.6 x 2.4 x 2.5 cm. The left ovary measures 1.8 x 2.1 x 1.5 cm. There is normal vascu lar flow in the ovaries. IMPRESSION: 1. No etiology for the patient's symptoms. 2. Intrauterine device in expected position. Reviewed, dictated and finalized at location A.
== END 2023-12-13 14:15 ==
LOC: MICIMG 14:15
PROVIDERS: PCP Nurse Practitioner Adult Health; Visit Provider Obstetrics & Gynecology Gynecology
DX: Z30.431 Encounter for routine checking of intrauterine contraceptive device (principal)
CPT/HCPCS: 76856

== ENCOUNTER 2024-05-27 09:54 | Outpatient (CLI) | payer BC, SELFPAY ==
--- OUTSIDE RECORDS SUMMARY | 2024-05-27 10:56 | XMS_ITS | Clinical Summary ---
Author Organization [facility] [address] Address [address] [place] [address] Care Team Providers Care Junior Network Administrator Name Role Phone Linette Roman NP Primary Care Provider [phone] Allergies Active Allergy Reactions Criticality Noted Date Comments Nitrofurantoin Rash,Chest tightness Medium 02/13/2024 Metoclopramide Muscle pain Medium 02/13/2024 Sulfa Rash,Chest tightness Medium 02/13/2024 Medications No known medications Active Problems No known active problems Social History Tobacco Use Types Packs/Day Years Used Date Smoking Tobacco: Never Assessed Personal Safety Answer Date Recorded Have you ever been in or are you currently in a harmful physical or emotional relationship or is someone making you feel afraid or unsafe? 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 Gender Identity Not on file Sexual Orientation Not on file Last Filed Vital Signs Vital Sign Reading Time Taken Comments Blood Pressure 131/78 02/13/2024 3:36 PM CDT Pulse 104 02/13/2024 3:36 PM CDT Temperature 35.7 C (96.2 F) 02/13/2024 3:36 PM CDT Respiratory Rate 28 02/13/2024 3:36 PM CDT Oxygen Saturation 100% 02/13/2024 3:36 PM CDT Inhaled Oxygen Concentration - - Weight 60.3 kg (133 lb) 02/13/2024 3:36 PM CDT Height 160 cm (5' 3 ) 02/13/2024 3:36 PM CDT Body Mass Index 23.56 02/13/2024 3:36 PM CDT Plan of Treatment Health Maintenance Due Date Last Done Comments Depression Screening 1993 Hepatitis C Screening 1993 Regular Well Visit/Exam 18-64 07/20/2011 Cervical Cancer Screening 12/25/2020 12/26/2019 Influenza Vaccine (#1) 2023 7, 01/29/2016, 12/19/2014 DTaP/Tdap/Td Vaccine (9 - Td or Tdap) 08/26/2029 08/27/2019, 03/09/2015, 11/11/2007, Additional history exists Varicella Vaccines Completed 03/09/2015, 0 12/03/1998, 07/27/1994 HPV Vaccines Aged Out No longer eligi ble based on patient's age to complete this topic Pneumococcal vaccine <65 Aged Out No longer eligible based on patient's age to complete [place] [address] [facility] HMO/PPO Address: [facility] [address] [place] [address] [facility] [place] [address] Care Teams Junior Network Administrator Relationship Specialty Start Date End Date Linette Roman NP [facility] [place] [address] PCP - General Nurse Practitioner 08/20/23
--- OUTSIDE RECORDS SUMMARY | 2024-05-27 10:56 | XMS_ITS | Referral Summary ---
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 [place] [address] PCP - General Nurse Practitioner 08/20/23
--- OUTSIDE RECORDS SUMMARY | 2024-05-27 10:56 | XMS_ITS | Clinical Summary ---
Author Organization [facility] Address [address] [place] [address] Care Team Providers Care Child Monitor Name Role Phone Varsha Navarro MD Primary Care Provider [phone] Allergies Active Allergy Reactions Criticality Noted Date Comments Sulfamethoxazole-Trimeth oprim Swelling,Chest pressure High 12/11/2018 Metoclopramide Other (see comment) 05/07/2019 Tartive dyskinesia Sulfa Antibiotics Nausea and Vomiting,Rash Low 02/24/2011 Medications No known medications Active Problems Problem Noted Date Diagnosed Date Gestational diabetes ([facility]) 11/11/2019 Visit for preventive health examination 12/09/19 Overview (10/30/2018): Overview: Has never had a pap. In a relationship for 6 yrs. Using condoms for control. Has been on oral contraceptives 2.5 yrs ago. No side effects. Wants to start it again. Last Assessment & Plan: Pap results awaited. May start oral contraceptives. Reviewed side effects. Encounter for initial prescription of contracept betito 11/20/2016 Overview (10/30/2018): Overview: Sexually active . Been with present partner for 6 yrs. Has been on oral contraceptives and noticed her mood had improved. Wondering if she should get Nexplanon. Last Assessment & Plan: Will consider Nuvaring. ADD (attention deficit disorder) 04/12/2015 Overview (10/30/2018): Overview: Started symptoms in college. Struggled with her grades. Started medication last year. Was started on Concerta but never took it due to glitches in pharmacy. Not on medication since July. 12/08/16: Doing really well on Vyvanse. Stopped Concerta. 07/03/17: Vyvanse is working well for her. Will be graduating in August. Feels she concentrates better if she could sleep adequately. Under a lot of stress. Last Assessment & Plan: Weight loss noted. Need to recheck. Will decrease dose to 10 mg daily. May call for refills for the next 2 months if dose is adequate. Eosinophilic esophagitis 02/01/2015 Overview (10/30/2018): Overview: Seeing Dr. Magdaleno. Last endoscopy was in 2014- emergency scope as she had a piece of corn dog stuck between strictures. Last Assessment & Plan: Needs to follow up with Dr. Magdaleno. Cutaneous eruption 02/03/2014 Overview (10/30/2018): Overview: bx not clear 11/2013 at [facility] but treated as psoriasis Anxiety and depression 05/16/2013 Overview (10/30/2018): Overview: Was on Lexapro for 4 years. Stopped in May 2016. [place] well. Nervous now as school is beginning. Last Assessment & Plan: Consider restarting at 5 mg for anxiety. Recommend psychotherapy. Will call if she wants to start medication. Paresthesia of foot 01/23/2013 Nonsurgical dumping syndrome 01/02/2013 Syncope, near 01/02/2013 Weight gain, abnormal 01/02/2013 Backache 06/18/2012 Vitamin D deficiency 05/15/2012 Abdominal pain, LUQ (left upper quadrant) 2012 Overview (10/30/2018): Overview: Gastric ulcer and esophagitis 2012- Dr. Magdaleno Dysphagia 05/14/2012 Overview (10/30/2018): Overview: Stricture dilated 2012 PMDD (premenstrual dysphoric disorder) 3 Overview (10/30/2018): Overview: Tolerating OCP starting 05/2012 Social phobia 05/14/2012 Immunizations Name Administration Dates Next Due Dt/Diptheria Tetanus 11/11/2007 Dtp (Generic) 12/03/1998,11/14/1994,05/20/1994 ,02/18/1994,1993 Hepatitis B Pediatric 05/20/1994,1993,1993 Influenza (Generic) 12/15/2016,12/19/2014 MMR (Generic) 12/03/1998,07/27/1994 Opv 12/03/1998,05/20/1994,02/18/1994 ,1993 Tdap (Generic) 03/10/2015 Varicella Vaccine 03/10/2015 Family History Medical History Relation Comments barretts Maternal Grandmother Relation Status Comments Father Alive Maternal Grandmother Mother Alive Social History Tobacco Use Types Packs/Day Years Used Date Smoking Tobacco: Never Smokeless Tobacco: Never Alcohol Use Standard Drinks/Week Comments Not Currently 0 (1 standard drink = 0.6 oz pur e alcohol) 2 drinks every 2 weeks AUDIT-C Answer Date Recorded Frequency of Alcohol Consumption Never 10/30/2018 Average Number of Drinks Not on file 019 Frequency of Binge Drinking Not on file 10/14 Comments No Sex and Gender Information Value Date Recorded Sex Assigned at Not on file Legal Sex Female 2:21 PM CDT Gender Identity Not on file Sexual Orientation Not on file Last Filed Vital Signs Vital Sign Reading Time Taken Comments Blood Pressure 104/83 12/07/2019 12:00 AM CDT Pulse 89 12/06/2019 10:24 PM CDT Temperature 36.8 C (98.2 F) 12/06/2019 10:24 PM CDT Respiratory Rate 18 12/07/2019 12:00 AM CDT Oxygen Saturation 98% 12/07/2019 12:00 AM CDT Inhaled Oxygen Concentration - - Weight 62.7 kg (138 lb 3.7 oz) 12/06/2019 9:16 P M CDT Height 160 cm (5' 3 ) 12/06/2019 9:16 PM CDT Body Mass Index 24.49 12/06/2019 9:16 PM CDT Plan of Treatment Health Maintenance Due Date Last Done Comments Annual Physical 10/31/2019 10/30/2018 Cervical Cancer Screening Pap Smear (Age 30 to 64) Every 3 Years 12/25/2022 12/26/2019 Cervical Cancer Screening Pap with HPV Testing (Age 30 to 64) Every 5 Years 07/20/2023 Cervical Cancer Screening with HPV 07/20/2023 COVID-19 Vaccine ( season) 2023 Influenza Adult (#1) 2024 02/09/2020, 02/09/2019, 12/15/2016, Additional history exists DTaP, Tdap and Td Vaccines (7 - Td or Tdap) 03/10/2025 03/10/2015, 11/11/2007, 12/03/1998, Additional history exists Hepatitis B Vaccines Completed 05/20/1994, 1993, 1993 Hepatitis C Completed 04/02/2019 HPV Vaccines Aged Out No longer eligi ble based on patient's age to complete this topic Meningococcal B Vaccine Aged Out No l onger eligible based on patient's age to complete this topic Meningococcal Vaccine Aged Out No sanjay sade eligible based on patient's age to complete this topic Pneumococcal Vaccine: Pediatrics (0 to 5 Years) and At-Risk Patients (6 to 64 Years) Aged Out No longer eligible based on patient's age to complete this topic RSV Immunizations Under 20 Months Aged Out No longer eligible based on patient's age to complete this topic Procedures Procedure Name Priority Date/Time Associated Diagnosis Comments CYTOPATH CERV/VAG THIN LAYER Routine 12/26/2019 8:00 AM CDT HEPATITIS C ANTIBODY Routine 04/02/2019 10:10 AM BENEFITS CLERK Encounter for supervision of normal , unspecified, unspecified trimester ([facility]) from Last 3 Months or Most Recently Relevant to Health Maintenance Results * Cytopath Cerv/Vag Thin Layer (12/26/2019 8:00 AM CDT) THIN PREP PAP [address] [address] Department of Pathology Pathology Report CERVICAL/VAGINAL PAP SMEAR REPORT Name: MARIA R BLAIR Age: 4 1995 (Age: 24) Location: [facility] Sex: F Collected Date: 12/26/2019 [facility] #: [id number] Date Received: 12/30/2019 Date Reported: 12/31/2019 Provider: LUIS DANIEL BURLESON MD INTERPRETATION CERVICAL/ENDOCERVI JAMILAH: SATISFACTORY FOR EVALUATION. ENDOCERVICAL/TRANS FORMATION ZONE COMPONENT PRESENT. NEGATIVE FOR INTRAEPITHELIAL LESION OR MALIGNANCY. 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 Date of Last Menstrual Period: UNKNOWN Menstrual Status: Post SPECIMEN SUBMITTED CERVICAL/ENDOCERVI JAMILAH Specimen Received:1 Thin Prep Vial, Image Assisted Pap (SMD) Please note: The Pap smear is not a diagnostic test. It is a screening test. Negative results on combined screening (Pap test and HPV-DNA) have a high negative predictive value (99.1-100 percent) for cervical cancer. The pap test is not effective in detecting cervical adenocarcinoma. [facility] 12/26/2019 8:00 AM CDT 12/30/2019 8:00 AM CDT Comment:CERVICAL/ENDOCERVICA L Luis Daniel Burleson MD PATHOLOGY/CYTOLOGY ORDERA BLES Final Result Performing Organization Address [facility] Co de Phone Number [facility] [address] [place] [address], * HEPATITIS C ANTIBODY (04/02/2019 10:10 AM BENEFITS CLERK) HEPATITIS C AB NON-REACTI VE NON-REACT JING 04/03/2019 12:44 AM BENEFITS CLERK [facility] Comment: ANTIBODIES TO HCV NOT DETECTED. DOES NOT EXCLUDE THE POSSIBILITY OF EXPOSURE TO HCV. 04/02/2019 10:1 0 AM BENEFITS CLERK Luis Daniel Burleson MD LABORATORY Final Res ult Performing Organization Address City/[facility]/ZIP Co de Phone Number [facility] [address] [place] [id number], [phone] from Last 3 Months or Most Recently Relevant to Health Maintenance Advance Directives * Full Code (Latest Code Status on File) Date Activated Date Inactivated Comments 11/11/2019 6:18 AM 11/12/2019 3:34 AM Care Teams Child Monitor Relationship Specialty Start Date End Date Varsha Navarro MD PCP - General FAMILY PRACTICE 10/30/18
[2024-05-27 19:32] LABS: Basophils Absolute Auto 0.1 K/mm3 (0.0-0.1); Basophils Percent Auto 1.5 % (0.2-1.2); Eosinophils Absolute Auto 0.5 K/mm3 (0-0.3); Eosinophils Percent Auto 9.2 % (0-4.4); Hematocrit 46.3 % (37.0-47.0); Hemoglobin 14.7 g/dL (12.0-15.0); Immature Granulocyte Absolute 0.01 K/mm3 (0.00-0.031); Immature Granulocyte Percent A 0.2 % (0-0.5); Lymphocytes Absolute Auto 1.91 K/mm3 (0.9-3.2); Mean Corpuscular HGB Conc 31.7 g/dl (32-36); Mean Corpuscular Hemoglobin 28.9 pg (26-34); Mean Platelet Volume 11.4 fl (7.4-10.4); Monocytes Absolute Auto 0.5 K/mm3 (0.1-0.6); Neutrophils Absolute Auto 2.5 K/mm3 (1.3-6.7); Neutrophils Percent Auto 45.1 % (45.5-73.1); Platelet Count Result 297 k/mm3 (150-375); Red Blood Count 5.09 M/mm3 (4.2-5.4); Red Cell Distribution Width 12.5 % (11.5-14.5); White Blood Count 5.5 K/mm3 (4.5-10.0)
[2024-05-27 20:15] LABS: Alanine Aminotransferase 19 U/L (6-35); Albumin Level 4.5 g/dL (3.5-5.1); Alkaline Phosphatase 68 U/L (38-126); Amylase 67 U/L (30-110); Anion Gap 11 mmol/L (4-12); Aspartate Amino Transferase 52 U/L (14-36); Bilirubin,Total 0.4 mg/dL (0.2-1.3); Blood Urea Nitrogen 7 mg/dL (7-17); Calcium 9.4 mg/dL (8.4-10.2); Carbon Dioxide 27 mmol/L (22-30); Chloride 105 mmol/L (98-107); Estimated Glomerular Filt Rate > 60; Glucose 82 mg/dL (65-110); Lipase 141 U/L (23-300); Potassium 4.2 mmol/L (3.4-5.0); Sodium 143 mmol/L (137-145)
== END 2024-05-27 09:55 | disposition home or self-care (01) ==
LOC: ANHBWCLAB 09:56
PROVIDERS: PCP Nurse Practitioner Adult Health; Visit Provider Nurse Practitioner Adult Health
DX: R10.11 Right upper quadrant pain (principal)
CPT/HCPCS: 36415; 80053; 82150; 83690; 85025

== ENCOUNTER 2024-06-09 11:22 | Outpatient (CLI) | payer BC, SELFPAY ==
[2024-06-09 13:04] LABS: Alanine Aminotransferase 27 U/L (6-35); Albumin Level 4.7 g/dL (3.5-5.1); Alkaline Phosphatase 59 U/L (38-126); Amylase 56 U/L (30-110); Anion Gap 13 mmol/L (4-12); Aspartate Amino Transferase 19 U/L (14-36); Bilirubin,Total 0.7 mg/dL (0.2-1.3); Blood Urea Nitrogen 8 mg/dL (7-17); Calcium 9.5 mg/dL (8.4-10.2); Carbon Dioxide 26 mmol/L (22-30); Chloride 103 mmol/L (98-107); Estimated Glomerular Filt Rate > 60; Glucose 82 mg/dL (65-110); Lipase 108 U/L (23-300); Potassium 3.5 mmol/L (3.4-5.0); Sodium 142 mmol/L (137-145)
[2024-06-09 13:06] LABS: Basophils Absolute Auto 0.1 K/mm3 (0.0-0.1); Basophils Percent Auto 0.9 % (0.2-1.2); Eosinophils Absolute Auto 0.2 K/mm3 (0-0.3); Eosinophils Percent Auto 2.8 % (0-4.4); Hemoglobin 14.2 g/dL (12.0-15.0); Immature Granulocyte Absolute 0.01 K/mm3 (0.00-0.031); Immature Granulocyte Percent A 0.2 % (0-0.5); Lymphocytes Absolute Auto 1.23 K/mm3 (0.9-3.2); Lymphocytes Percent Auto 19.2 % (18.3-44.2); Mean Corpuscular HGB Conc 31.6 g/dl (32-36); Mean Corpuscular Hemoglobin 28.4 pg (26-34); Mean Platelet Volume 11.3 fl (7.4-10.4); Monocytes Absolute Auto 0.4 K/mm3 (0.1-0.6); Monocytes Percent Auto 5.6 % (2.6-8.5); Neutrophils Absolute Auto 4.6 K/mm3 (1.3-6.7); Neutrophils Percent Auto 71.3 % (45.5-73.1); Platelet Count Result 279 k/mm3 (150-375); Red Cell Distribution Width 12.6 % (11.5-14.5); White Blood Count 6.4 K/mm3 (4.5-10.0)
--- OUTSIDE RECORDS SUMMARY | 2024-06-09 13:20 | XMS_ITS | Clinical Summary ---
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 [address] [place] [address] Care Teams Veneer Taping Machine Offbearer Relationship Specialty Start Date End Date Linette Roman NP [facility] [place] [address] PCP - General Nurse Practitioner 08/20/23
--- OUTSIDE RECORDS SUMMARY | 2024-06-09 13:20 | XMS_ITS | Clinical Summary ---
Author Organization [facility] Address Formerly [place] [address] Care Team Providers Care Kaiawhina Kohanga Reo Name Role Phone Linette Roman NP Primary Care Provider [phone] Allergies Active Allergy Reactions Criticality Noted Date Comments Sulfamethoxazole-Trimeth oprim Swelling,Chest pressure High 12/11/2018 Ciprofloxacin Shortness of Breath High 06/02/2024 Metoclopramide Other (see comment) 05/07/2019 Tartive dyskinesia Sulfa Antibiotics Nausea and Vomiting,Rash Low 02/24/2011 Medications ondansetron (ZOFRAN-ODT) 4 MG disintegrating tablet Take 1 tablet (4 mg total) by mouth every 8 (eight) hours as needed for Nausea. 20 tablet 5 Active HYDROcodone-acetami nophen (NORCO) 7.5-325 MG tabletIndications:A cute Pain < 7 Day Supply Take 1 tablet by mouth every 6 (six) hours as needed for Pain. Indications : Acute Pain < 7 Day Supply 21 tablet 5 Active Active Problems Problem Noted Date Diagnosed Date Gestational diabetes ([facility]) 11/11/2019 Visit for preventive health examination 12/09/19 17 Overview (10/30/2018): Overview: Has never had a [...] (10/30/2018): Overview: bx not clear 11/2013 at [facility] but treated as psoriasis Anxiety and depression 05/16/2013 Overview (10/30/2018): Overview: Was on Lexapro for 4 years. Stopped in May 2016. [place] well. Nervous now as school is beginning. [...] Tolerating OCP starting 05/2012 Social phobia 05/14/2012 Encounters Date Type Department Care Team Description 06/02/2024 1:44 AM LABORATORY ANALYST - 06/02/2024 5:32 AM LABORATORY ANALYST Emergency [facility] [place] [address] Alicia Cruz MD Abdominal Pain Discharge Disposition: Home or Self Care (Routine Discharge) 06/02/2024 Travel from Last 3 Months Immunizations Name Administration Dates Next Due Dt/Diptheria Tetanus 11/11/2007 Dtp (Generic) 12/03/1998,11/14/1994,05/20/1994 ,02/18/1994,1993 Hepatitis B Pediatric 05/20/1994,1993,08/1993 Influenza (Generic) 12/15/2016,12/19/2014 MMR (Generic) 12/03/1998,07/27/1994 Opv [...] Information Value Date Recorded Sex Assigned at Female 06/02/2024 1:46 AM LABORATORY ANALYST Legal Sex Female 2:21 PM CDT Gender Identity Not on file Sexual Orientation Not on file Last Filed Vital Signs Vital Sign Reading Time Taken Comments Blood Pressure 90/52 06/02/2024 5:00 AM LABORATORY ANALYST Pulse 98 06/02/2024 5:00 AM LABORATORY ANALYST Temperature 36.2 C (97.1 F) 06/02/2024 1:35 AM LABORATORY ANALYST Respiratory Rate 20 06/02/2024 5:00 AM LABORATORY ANALYST Oxygen Saturation 97% 06/02/2024 5:00 AM LABORATORY ANALYST Inhaled Oxygen Concentration - - Weight 63.5 kg (140 lb) 06/02/2024 1:35 AM LABORATORY ANALYST Height 160 cm (5' 3 ) 06/02/2024 1:35 AM LABORATORY ANALYST Body Mass Index 24.8 06/02/2024 1:35 AM LABORATORY ANALYST Plan of Treatment Health Maintenance Due Date Last Done Comments Annual Physical 10/31/2019 10/30/2018 Cervical Cancer Screening Pap Smear (Age 30 to 64) Every 3 Years 12/25/2022 12/26/2019, 12/08/2016 Cervical Cancer Screening Pap with HPV Testing (Age 30 to 64) Every 5 Years 07/20/2023 12/08/2016 Cervical Cancer Screening with HPV 07/20/2023 COVID-19 [...] Procedure Name Priority Date/Time Associated Diagnosis Comments CT ABD+PEL W CON STAT 06/02/2024 3:51 AM LABORATORY ANALYST POCT URINE (BACK OFFICE) STAT 06/02/2024 3:18 AM LABORATORY ANALYST XR CHEST PORTABLE STAT 06/02/2024 2:2 2 AM LABORATORY ANALYST HC URINALYSIS AUTO W/O MICRO STAT 06/02/2024 2:05 AM LABORATORY ANALYST LIPASE STAT 06/02/2024 1:57 AM LABORATORY ANALYST TROPONIN, QUANT STAT 06/02/2024 1:57 AM LABORATORY ANALYST COMPREHENSIVE METABOLIC PANEL STAT 06/02/2024 1:57 AM LABORATORY ANALYST CBC W/DIFF AUTOMATED STAT 06/02/2024 1:57 AM LABORATORY ANALYST ECG 12-LEAD Routine 06/02/2024 1:56 AM LABORATORY ANALYST CYTOPATH CERV/VAG THIN LAYER Routine 12/26/2019 8:00 AM CDT HEPATITIS C ANTIBODY Routine 04/02/2019 10:10 AM LABORATORY ANALYST Encounter for supervision of normal , unspecified, unspecified trimester (HHS/HCC) from Last 3 Months or Most Recently Relevant to Health Maintenance Results * CT ABD+PEL W IV CON ONLY (06/02/2024 3:51 AM LABORATORY ANALYST) Anatomical Region Laterality Modality Abdomen Computed Tomogra phy 06/02/2024 4:02 AM LABORATORY ANALYST Impressions 06/02/2024 4:04 AM LABORATORY ANALYST IMPRESSION: ===== 1. Cholelithiasis with contracted gallbladder. No further CT evidence of acute cholecystitis. Referred By: Interpreted By: Jesse Awad MD, 06/02/2024 4:02 AM Narrative 06/02/2024 4:04 AM LABORATORY ANALYST [address] [address] EXAMINATION: CT Abdomen and Pelvis with contrast EXAM DATE/TIME: 06/02/2024 3:31 AM REASON FOR EXAM: epigastric pain, reported gallbladder problems Chest pain and epigastric pain. COMPARISON: None TECHNIQUE: Axial CT images of the abdomen and pelvis are obtained following uneventful intravenous administration of 100 cc Isovue-370. Subsequent coronal and sagittal reformatted sequences are created for evaluation. A dose lowering technique was used for this procedure, which may include, but is not limited to, dose reduction technique, automated exposure control, iterative reconstruction, ALARA (As Low As Reasonably Achievable), or Image Gently techniques. FINDINGS: Lung bases are clear. No pleural effusion. Heart size normal. No pericardial effusion. Liver and spleen are normal in size and surface contour. No abnormal enhancing hepatic lesions. Cholelithiasis with contracted gallbladder. Pancreas and adrenal glands unremarkable. Kidneys symmetric symmetric uptake of contrast. No hydronephrosis on either side. Abdominal aorta normal in caliber throughout. Bowel is normal in caliber. No bowel obstruction. Appendix normal. No free fluid in the pelvis. IUD in the uterus. Latter surface contours are unremarkable. Bone level imaging shows no destructive osseous lesions. ===== Procedure Note Jesse Awad MD - 06/02/[address] [address] EXAMINATION: CT Abdomen and Pelvis with contrast EXAM DATE/TIME: 06/02/2024 3:31 AM REASON FOR EXAM: epigastric pain, reported gallbladder problems Chest pain and epigastric pain. COMPARISON: None TECHNIQUE: Axial CT images of the abdomen and pelvis are obtainedfollowing uneventful intravenous administration of 100 cc Isovue-370.Subsequent coronal and sagittal reformatted sequences are created forevaluation. A dose lowering technique was used for this procedure, whichmay include, but is not limited to, dose reduction technique, automatedexposure control, iterative reconstruction, ALARA (As Low As ReasonablyAchievable), or Image Gently techniques. FINDINGS: Lung bases are clear. No pleural effusion. Heart size normal.No pericardial effusion. Liver and spleen are normal in size and surface contour. No abnormalenhancing hepatic lesions. Cholelithiasis with contracted gallbladder.Pancreas and adrenal glands unremarkable. Kidneys symmetric symmetricuptake of contrast. No hydronephrosis on either side. Abdominal aortanormal in caliber throughout. Bowel is normal in caliber. No bowelobstruction. Appendix normal. No free fluid in the pelvis. IUD in theuterus. Latter surface contours are unremarkable. Bone level imagingshows no destructive osseous lesions. ===== IMPRESSION: ===== 1. Cholelithiasis with contracted gallbladder. No further CT evidence ofacute cholecystitis. Referred By: Interpreted By: Jesse Awad MD, 06/02/2024 4:02 AM Kiarra Grigsby MOTOR VEHICLE EMISSIONS INSPECTOR CT Final Result * POCT urine (06/02/2024 3:18 AM LABORATORY ANALYST) URINE HCG TEST NEGATIVE Internal Control: VALID Alicia Cruz MD POINT OF CARE TEST OR DERABLES Final Result * XR CHEST PORTABLE (06/02/2024 2:22 AM LABORATORY ANALYST) Anatomical Region Laterality Modality Chest Radiographic Karolina ging 06/02/2024 2:26 AM LABORATORY ANALYST Impressions 06/02/2024 2:27 AM LABORATORY ANALYST IMPRESSION: ======== 1. No acute cardiopulmonary findings. Referred By: Interpreted By: Jesse Awad MD, 06/02/2024 2:26 AM Narrative 06/02/2024 2:27 AM LABORATORY ANALYST [address] [address] Examination: Chest x-ray 1 view Exam Date/Time: 06/02/2024 2:12 AM Reason For Exam: epigastric pain Comparison: 12/06/2019 chest radiograph Technique: Single AP view of the chest was obtained. Findings: Heart size normal. No large effusion. No pneumothorax. No focal infiltrate or consolidative changes. Pulmonary vascularity within normal limits. ======== Procedure Note Jesse Awad MD - 06/02/2024 [place] [address] Examination: Chest x-ray 1 view Exam Date/Time: 06/02/2024 2:12 AM Reason For Exam: epigastric pain Comparison: 12/06/2019 chest radiograph Technique: Single AP view of the chest was obtained. Findings: Heart size normal. No large effusion. No pneumothorax. Nofocal infiltrate or consolidative changes. Pulmonary vascularity withinnormal limits. ======== IMPRESSION: ======== 1. No acute cardiopulmonary findings. Referred By: Interpreted By: Jesse Awad MD, 06/02/2024 2:26 AM Kiarra Grigsby NP GENERAL IMAGING Final Result * URINALYSIS (06/02/2024 2:05 AM LABORATORY ANALYST) SPECIMEN TYPE URINE CLEAN CATCH 06/02/2024 2:05 AM LABORATORY ANALYST [facility] COLOR (U) LIGHT YELLOW 06/02/2024 2:15 AM LABORATORY ANALYST [facility] TRANSPARENCY CLEAR 06/02/2024 2:15 AM [facility] SPECIFIC GRAVITY (U) 1.012 1.001 - 1.030 06/02/2024 2:15 AM [facility] U PH 5.5 5.0 - 9.0 06/02/2024 2:15 AM [facility] LEUKOCYTES (U) NEGATIVE NEGATIVE 06/02/2024 2:15 AM [facility] NITRITES NEGATIVE NEGATIVE 06/02/2024 2:15 AM [facility] PROTEIN RANDOM (U) NEGATIVE <30 MG/DL 06/02/2024 2:15 AM [facility] GLUCOSE (U) NORMAL NORMAL MG/DL 06/02/2024 2:15 AM [facility] KETONES MG/DL (U) NEGATIVE NEGATIVE MG/DL 06/02/2024 2:15 AM [facility] UROBILINOGEN NORMAL NORMAL MG/DL 06/02/2024 2:15 AM [facility] BILIRUBIN (U) NEGATIVE NEGATIVE MG/DL 06/02/2024 2:15 AM [facility] BLOOD (U) NEGATIVE NEGATIVE 06/02/2024 2:15 AM [facility] URINE SPECIMEN OBTAINED BY CLEAN CATCH PROCEDURE / Unknown 06/02/2024 2:05 AM LABORATORY ANALYST us Kiarra Grigsby MOTOR VEHICLE EMISSIONS INSPECTOR URINE ORDERABLES Final Result [facility] [address] [place] [address], [place] [phone] * (ABNORMAL) COMPREHENSIVE METABOLIC PANEL (06/02/2024 1:57 AM LABORATORY ANALYST) GLUCOSE 98 70 - 99 MG/DL 06/02/2024 2:36 AM [facility] BUN 10 7 - 18 MG/DL 06/02/2024 2:36 AM [facility] CREATININE S/P/B 0.97 0.55 - 1.02 MG/DL 06/02/2024 2:36 AM [facility] SODIUM S/P/B 137 136 - 145 MMOL/L 06/02/2024 2:36 AM [facility] POTASSIUM S/P/B 3.5 3.5 - 5.1 MMOL/L 06/02/2024 2:36 AM [facility] CHLORIDE S/P/B 106 97 - 115 MMOL/L 06/02/2024 2:36 AM [facility] CO2 27.3 21 - 32 MMOL/L 06/02/2024 2:36 AM [facility] CALCIUM S/P/B 8.8 8.5 - 10.1 MG/DL 06/02/2024 2:36 AM [facility] BILIRUBIN TOTAL S/P/B 0.6 0.2 - 1.2 MG/DL 06/02/2024 2:36 AM [facility] Comment: THIS ASSAY IS NOT RECOMMENDED FOR PATIENTS UNDERGOING TREATMENT WITH ELTROMBOPAG DUE TO THE POTENTIAL FOR FALSELY ELEVATED RESULTS. TOTAL PROTEIN S/P/B 7.8 6.4 - 8.2 G/DL 06/02/2024 2:36 AM [facility] ALBUMIN S/P/B 4.0 3.4 - 5.0 G/DL 06/02/2024 2:36 AM [facility] AST 10(L) 15 - 37 U/L 06/02/2024 2:36 AM [facility] ALT 16 14 - 55 U/L 06/02/2024 2:36 AM [facility] ALKALINE PHOSPHATASE S/P/B 71 50 - 136 U/L 06/02/2024 2:36 AM LABORATORY ANALYST [facility] ANION GAP 3.7 2 - 10 MMOL/L 06/02/2024 2:36 AM [facility] BUN CREATININE RATIO 10.3 6 - 26 06/02/2024 2:36 AM [facility] A/G RATIO 1.1 1.0 - 2.0 RATIO 06/02/2024 2:36 AM [facility] GFR ESTIMATE 81(L) >90 ML/MIN/1.7 3 M2 06/02/2024 2:36 AM [facility] Comment: NOTE: eGFR is not calculated for patients <18 years of age or gender unknown. This is an estimated GFR calculation using the new CKD EPI creatinine equation without race and so does not require a correction factor for race. This estimated GFR should not be used for calculating drug doses. 06/02/2024 1:57 AM LABORATORY ANALYST Kiarra Grigsby NP LABORATORY Final Result [facility] [address] [place] [address], [place] [phone] * (ABNORMAL) CBC W/DIFF AUTOMATED (06/02/2024 1:57 AM LABORATORY ANALYST) WBC 7.16 4.5 - 11.0 x10'3/uL 06/02/2024 2:07 AM LABORATORY ANALYST [facility] RBC 5.16 4.20 - 5.40 x10'6/uL 06/02/2024 2:07 AM [facility] HGB 14.7 12.0 - 16.0 G/DL 06/02/2024 2:07 AM [facility] HCT 44.7 38.0 - 48.0 % 06/02/2024 2:07 AM [facility] MCV 86.6 81.0 - 99.0 FL 06/02/2024 2:07 AM [facility] MCH 28.5 27.0 - 31.0 PG 06/02/2024 2:07 AM [facility] MCHC 32.9 32.0 - 36.0 G/DL 06/02/2024 2:07 AM [facility] RDW 12.3 11.5 - 14.5 % 06/02/2024 2:07 AM [facility] PLT 299 130 - 400 x10'3/uL 06/02/2024 2:07 AM [facility] MPV 11.0 9.3 - 12.2 FL 06/02/2024 2:07 AM [facility] DIFFERENTIAL TYPE AUTOMATED DIFFERENTIAL 06/02/2024 2:07 AM [facility] NEUTROPHILS % 46.2 % 06/02/2024 2:07 AM [facility] LYMPHOCYTES % 37.2 % 06/02/2024 2:07 AM [facility] MONOCYTES % 6.7 % 06/02/2024 2:07 AM [facility] EOSINOPHILS 8.5 % 06/02/2024 2:07 AM [facility] BASOPHILS 1.3 % 06/02/2024 2:07 AM [facility] IMMATURE GRANS % 0.1 % 06/02/19 2:07 AM [facility] ABS. NEUTROPHILS 3.31 1.80 - 7.70 x10'3/uL 06/02/2024 2:07 AM [facility] ABS. LYMPHOCYTES 2.66 1.00 - 4.80 x10'3/uL 06/02/2024 2:07 AM LABORATORY ANALYST [facility] ABS. MONOCYTES 0.48 0.24 - 0.86 x10'3/uL 06/02/2024 2:07 AM [facility] ABS. EOSINOPHILS 0.61(H) 0.04 - 0.36 x10'3/uL 06/02/2024 2:07 AM LABORATORY ANALYST [facility] ABS. BASOPHILS 0.09(H) 0.01 - 0.08 x10'3/uL 06/02/2024 2:07 AM LABORATORY ANALYST [facility] ABS. IMMATURE GRANULOCYTES 0.01 0.00 - 0.49 x10'3/uL 06/02/2024 2:07 AM [facility] 06/02/2024 1:57 AM LABORATORY ANALYST Kiarra Grigsby NP LABORATORY Final Result [facility] [address] [place] [id number], * TROPONIN, QUANT (06/02/2024 1:57 AM LABORATORY ANALYST) TROPONIN I HIGH SENSITIVITY <3 <54 ng/L 06/02/2024 2:36 AM LABORATORY ANALYST [facility] Comment: HIGH DOSES OF BIOTIN, TROPONIN-SPECIFIC AUTOANTIBODIES, AND ANTIBODY THERAPY CONTAINING HAMA MAY INTERFERE WITH THIS TEST RESULT. CORRELATION TO CLINICAL HISTORY AND PRESENTATION RECOMMENDED. 06/02/2024 1:57 AM LABORATORY ANALYST Kiarra Grigsby NP LABORATORY Final Result [facility] [address] [place] [address], [place] [phone] * LIPASE (06/02/2024 1:57 AM LABORATORY ANALYST) LIPASE 36 13 - 75 UNITS/L 06/02/2024 2:36 AM LABORATORY ANALYST [facility] 06/02/2024 1:57 AM LABORATORY ANALYST Kiarra Grigsby MOTOR VEHICLE EMISSIONS INSPECTOR LABORATORY Final Result [facility] [address] [place] [address], * ECG 12 lead (06/02/2024 1:56 AM LABORATORY ANALYST) 06/02/2024 1:56 AM LABORATORY ANALYST Narrative [facility] RAD - 06/02/2024 5:32 AM LABORATORY ANALYST [address] Test Date: 2024-06-02 Pat Name: MARIA R MOFFETTMARIEL Department: 41 Room: Gender: Female Curing Oven Tender: : 1995 Requested By: KIARRA GRIGSBY Order Number: [id number] Reading MD: Campos Mcnally Measurements Intervals [place] Rate: 84 P: 57 WA: 133 QRS: 48 QRSD: 77 T: 32 QT: 355 QTc: 421 Interpretive Statements SINUS RHYTHM WITH SINUS ARRHYTHMIA LOW QRS VOLTAGE IN PRECORDIAL LEADS [QRS DEFLECTION < 1.0 mV IN CHEST LEADS] No previous ECG available for comparison RATORY ANALYST Procedure Note Campos Mcnally MD - 06/02/[address] Test Date: 2024-06-02 Pat Name: MARIA R BLAIR Department: 41 Room: Gender: Female Curing Oven Tender: : 1995 Requested By: KIARRA GRIGSBY Order Number: [id number] Reading MD: Campos Mcnally Measurements Intervals [place] Rate: 84 P: 57 WA: 133 QRS: 48 QRSD: 77 T: 32 QT: 355 QTc: 421 Interpretive Statements SINUS RHYTHM WITH SINUS ARRHYTHMIA LOW QRS VOLTAGE IN PRECORDIAL LEADS [QRS DEFLECTION < 1.0 mV IN CHESTLEADS] No previous ECG available for comparison RATORY ANALYST us Kiarra Grigsby MOTOR VEHICLE EMISSIONS INSPECTOR ECG ORDERABLES Final Result [facility] ([facility]) RAD * Cytopath Cerv/Vag Thin Layer (12/26/2019 8:00 AM CDT) THIN PREP PAP [address] [address] Department of Pathology Pathology Report CERVICAL/VAGINAL PAP SMEAR REPORT Name: MARIA R BLAIR Age: 4 1995 (Age: 24) Location: [facility] Sex: F Collected Date: 12/26/2019 Hospital #: [id number] Date Received: 12/30/2019 Date Reported: 12/31/2019 Provider: STEWART BURLESON MD INTERPRETATION CERVICAL/ENDOCERVI JAMILAH: SATISFACTORY FOR EVALUATION. ENDOCERVICAL/TRANS FORMATION ZONE COMPONENT PRESENT. NEGATIVE FOR INTRAEPITHELIAL LESION OR MALIGNANCY. Electronically Signed Out By DONTRELL Rodriguez (ASCP) CLINICAL HISTORY Z12.4 PAP AND TIE FASTENER SURGICAL HISTORY-UNKNOWN ThinPrep Pap Test with HR [...] is not effective in detecting cervical adenocarcinoma. [facility] 12/26/2019 8:00 AM CDT 12/30/2019 8:00 AM CDT Comment:CERVICAL/ENDOCERVICA L Stewart Burleson MD PATHOLOGY/CYTOLOGY ORDERA BLES Final Result [facility] [address] [place] [address], * HEPATITIS C ANTIBODY (04/02/2019 10:10 AM LABORATORY ANALYST) HEPATITIS C AB NON-REACTI VE NON-REACT JING 04/03/2019 12:44 AM LABORATORY ANALYST [facility] Comment: ANTIBODIES TO HCV NOT DETECTED. DOES NOT EXCLUDE THE POSSIBILITY OF EXPOSURE TO HCV. 04/02/2019 10:1 0 AM LABORATORY ANALYST Stewart Burleson MD LABORATORY Final Res ult Performing Organization Address City/[facility] Co de Phone Number [facility] [address] [place] [address], [place] [phone] from Last 3 Months or Most Recently Relevant to Health Maintenance Insurance [address] [place], [place] [id number] [place] [address] Advance Directives * Full Code (Latest Code Status on File) Date Activated Date Inactivated Comments 11/11/2019 6:18 AM 11/12/2019 3:34 AM Care Teams Kaiawhina Kohanga Reo Relationship Specialty Start Date End Date Linette Roman NP [address] [place] [address] PCP - General NURSE PRACTITIONER 06/02/24
--- OUTSIDE RECORDS SUMMARY | 2024-06-09 13:20 | XMS_ITS | Referral Summary ---
Author Organization [facility] [address] Address [address] [place] [address] Care Team Providers Care Web Weaver Name Role Phone Linette Roman NP Primary Care Provider [phone] Allergies Active Allergy Reactions Criticality Noted Date [...] on file Legal Sex Female 5:16 PM [employer] Gender Identity Not on file Sexual Orientation [...] Plan of Treatment Not on file Insurance [facility] Care Teams Web Weaver Relationship Specialty Start Date End Date Linette Roman NP [facility] [place] [address] PCP - General Nurse Practitioner 08/20/23
== END 2024-06-09 11:23 | disposition home or self-care (01) ==
LOC: ANHLAB 11:23
PROVIDERS: PCP Nurse Practitioner Adult Health; Visit Provider Surgery
DX: R10.11 Right upper quadrant pain (principal)
CPT/HCPCS: 36415; 80048; 80076; 82150; 83690; 85025; 86850; 86900; 86901

== ENCOUNTER 2024-06-10 00:14 | Day surgery (SDC) | payer BC, SELFPAY ==
--- NOTE | 2024-06-09 11:21 | PC.NURSE ---
Report to the Outpatient Waiting Room, entrance under the green pavilion located off [facility], at time _1200_ on date _[id number]_. Planned Procedure Time: _2pm_.? Time changes happen often and if your time is changed the preop area will call you the afternoon before. - You and your visitor will be asked to self-screen and do not enter if you have any COVID symptoms. Please call surgeon if you need to reschedule. - A mask is optional within the hospital at this time. Patients may have clear liquids (water, carbonated beverages, clear teas, apple juice) until 3 hours prior to surgery with a maximum of 20 ounces. - No food from midnight until time of surgery and no smoking, or chewing tobacco (or any form of nicotine). No chewing gum, candy or mints. Take only the following medications with a SIP of water on the morning of surgery: ___If needed may use Alprazolam, Zofran and or hydrocodone.____ DO NOT STOP ANY OF YOUR OTHER PRESCRIPTION MEDICATIONS PRIOR TO SURGERY EXCEPT THE FOLLOWING Hold all vitamins and supplements for 3 days per anesthesiologist. Medications to discontinue per physician __None____ Date to take last dose Please no make-up, nail yakut, hairspray, perfume, deodorant, or body powder the day of surgery.? No jewelry (including any body piercings) or valuables the day of surgery, leave them at home.? Please take a shower or bath the night before, or the morning of, surgery with an antibacterial soap.? Wear comfortable, loose fitting clothing. - Jewelry must be removed prior to entering the operating room.? Rings and piercings that are not removed may be cut off. - The hospital will not accept responsibility for valuables.? - Please leave all valuables, including medications, at home the day of surgery. If you are going home after surgery, a licensed equipment driver must drive you home.? - NO public transportation without another adult if you receive anesthesia. - We recommend that an adult stay with you for 24 hours following discharge. - We also recommend that you do not drive, make important decision, drink alcoholic beverages, or take any drugs that were not prescribed by your health care provider for at least 24 hours after your discharge time. Follow any additional instructions given to you from your surgeon. Telephone instructions given to _Allie__and asked if any additional questions and then verbalized understanding. Patient advised to call surgeon office or pre surgery nurse liaison [phone] if any additional questions.
[2024-06-09 12:00] VITALS: BMI 24.5
[2024-06-10] VITALS (7 sets, daily range): BP systolic 97–116; BP diastolic 57–75; PULSE 65–100; RESP 12–16; TEMP 36.4–36.6; O2SAT 98–100
--- OUTSIDE RECORDS SUMMARY | 2024-06-10 00:17 | XMS_ITS | Clinical Summary ---
Author Organization [facility] Address [facility] [place] [address] Care Team Providers Care Change House Attendant Name Role Phone Linette Roman NP Primary Care Provider [phone] Allergies Active Allergy Reactions Criticality Noted Date [...] Problem Noted Date Diagnosed Date Gestational diabetes ([facility]) 11/11/2019 Visit for preventive health examination 12/09/19 [...] (10/30/2018): Overview: bx not clear 11/2013 at [facility] but treated as psoriasis Anxiety and depression 05/16/2013 Overview (10/30/2018): Overview: Was on Lexapro for 4 years. Stopped in May 2016. [place] well. Nervous now as school is beginning. [...] Department Care Team Description 06/02/2024 1:44 AM MOBILE MANAGER - 06/02/2024 5:32 AM MOBILE MANAGER Emergency [facility] [place] [address] Alicia Cruz MD Abdominal Pain Discharge Disposition: [...] Sex Assigned at Female 06/02/2024 1:46 AM MOBILE MANAGER Legal Sex Female 2:21 PM CDT Gender Identity Not on file Sexual Orientation Not on file Last Filed Vital Signs Vital Sign Reading Time Taken Comments Blood Pressure 90/52 06/02/2024 5:00 AM MOBILE MANAGER Pulse 98 06/02/2024 5:00 AM MOBILE MANAGER Temperature 36.2 C (97.1 F) 06/02/2024 1:35 AM MOBILE MANAGER Respiratory Rate 20 06/02/2024 5:00 AM MOBILE MANAGER Oxygen Saturation 97% 06/02/2024 5:00 AM MOBILE MANAGER Inhaled Oxygen Concentration - - Weight 63.5 kg (140 lb) 06/02/2024 1:35 AM MOBILE MANAGER Height 160 cm (5' 3 ) 06/02/2024 1:35 AM MOBILE MANAGER Body Mass Index 24.8 06/02/2024 1:35 AM MOBILE MANAGER Plan of Treatment Health Maintenance Due Date [...] ABD+PEL W CON STAT 06/02/2024 3:51 AM MOBILE MANAGER POCT URINE (BACK OFFICE) STAT 06/02/2024 3:18 AM MOBILE MANAGER XR CHEST PORTABLE STAT 06/02/2024 2:2 2 AM MOBILE MANAGER HC URINALYSIS AUTO W/O MICRO STAT 06/02/2024 2:05 AM MOBILE MANAGER LIPASE STAT 06/02/2024 1:57 AM MOBILE MANAGER TROPONIN, QUANT STAT 06/02/2024 1:57 AM MOBILE MANAGER COMPREHENSIVE METABOLIC PANEL STAT 06/02/2024 1:57 AM MOBILE MANAGER CBC W/DIFF AUTOMATED STAT 06/02/2024 1:57 AM MOBILE MANAGER ECG 12-LEAD Routine 06/02/2024 1:56 AM MOBILE MANAGER CYTOPATH CERV/VAG THIN LAYER Routine 12/26/2019 8:00 AM CDT HEPATITIS C ANTIBODY Routine 04/02/2019 10:10 AM MOBILE MANAGER Encounter for supervision of normal , unspecified, unspecified trimester (HHS/HCC) from Last 3 Months or Most Recently Relevant to Health Maintenance Results * CT ABD+PEL W IV CON ONLY (06/02/2024 3:51 AM MOBILE MANAGER) Anatomical Region Laterality Modality Abdomen Computed Tomogra phy 06/02/2024 4:02 AM MOBILE MANAGER Impressions 06/02/2024 4:04 AM MOBILE MANAGER IMPRESSION: ===== 1. Cholelithiasis with contracted gallbladder. No further CT evidence of acute cholecystitis. Referred By: Interpreted By: Jesse Awad MD, 06/02/2024 4:02 AM Narrative 06/02/2024 4:04 AM MOBILE MANAGER [address] [address] EXAMINATION: CT Abdomen and Pelvis with contrast [...] Procedure Note Jesse Awad MD - 06/02/[address] [address] EXAMINATION: CT Abdomen and Pelvis with contrast [...] Awad MD, 06/02/2024 4:02 AM Kiarra Grigsby MAIL MESSENGER CT Final Result * POCT urine (06/02/2024 3:18 AM MOBILE MANAGER) URINE HCG TEST NEGATIVE Internal Control: VALID Alicia Cruz MD POINT OF CARE TEST OR DERABLES Final Result * XR CHEST PORTABLE (06/02/2024 2:22 AM MOBILE MANAGER) Anatomical Region Laterality Modality Chest Radiographic Karolina ging 06/02/2024 2:26 AM MOBILE MANAGER Impressions 06/02/2024 2:27 AM MOBILE MANAGER IMPRESSION: ======== 1. No acute cardiopulmonary findings. Referred By: Interpreted By: Jesse Awad MD, 06/02/2024 2:26 AM Narrative 06/02/2024 2:27 AM MOBILE MANAGER [address] [address] Examination: Chest x-ray 1 view Exam Date/Time: 06/02/2024 2:12 AM Reason For Exam: epigastric pain Comparison: 12/06/2019 chest radiograph Technique: Single AP view of the chest was obtained. Findings: Heart size normal. No large effusion. No pneumothorax. No focal infiltrate or consolidative changes. Pulmonary vascularity within normal limits. ======== Procedure Note Jesse Awad MD - 06/02/2024 [place] [address] Examination: Chest x-ray 1 view Exam Date/Time: [...] Final Result * URINALYSIS (06/02/2024 2:05 AM MOBILE MANAGER) SPECIMEN TYPE URINE CLEAN CATCH 06/02/2024 2:05 AM MOBILE MANAGER [facility] COLOR (U) LIGHT YELLOW 06/02/2024 2:15 AM MOBILE MANAGER [facility] TRANSPARENCY CLEAR 06/02/2024 2:15 AM [facility] SPECIFIC GRAVITY (U) 1.012 1.001 - 1.030 06/02/2024 2:15 AM [facility] U PH 5.5 5.0 - 9.0 06/02/2024 2:15 AM [facility] LEUKOCYTES (U) NEGATIVE NEGATIVE 06/02/2024 2:15 AM [facility] NITRITES NEGATIVE NEGATIVE 06/02/2024 2:15 AM [facility] PROTEIN RANDOM (U) NEGATIVE <30 MG/DL 06/02/2024 2:15 AM [facility] GLUCOSE (U) NORMAL NORMAL MG/DL 06/02/2024 2:15 AM [facility] KETONES MG/DL (U) NEGATIVE NEGATIVE MG/DL 06/02/2024 2:15 AM [facility] UROBILINOGEN NORMAL NORMAL MG/DL 06/02/2024 2:15 AM [facility] BILIRUBIN (U) NEGATIVE NEGATIVE MG/DL 06/02/2024 2:15 AM [facility] BLOOD (U) NEGATIVE NEGATIVE 06/02/2024 2:15 AM [facility] URINE SPECIMEN OBTAINED BY CLEAN CATCH PROCEDURE / Unknown 06/02/2024 2:05 AM MOBILE MANAGER us Kiarra Grigsby MAIL MESSENGER URINE ORDERABLES Final Result [facility] [address] [place] [address], [place] [phone] * (ABNORMAL) COMPREHENSIVE METABOLIC PANEL (06/02/2024 1:57 AM MOBILE MANAGER) GLUCOSE 98 70 - 99 MG/DL 06/02/2024 2:36 AM [facility] BUN 10 7 - 18 MG/DL 06/02/2024 2:36 AM [facility] CREATININE S/P/B 0.97 0.55 - 1.02 MG/DL 06/02/2024 2:36 AM [facility] SODIUM S/P/B 137 136 - 145 MMOL/L 06/02/2024 2:36 AM [facility] POTASSIUM S/P/B 3.5 3.5 - 5.1 MMOL/L 06/02/2024 2:36 AM [facility] CHLORIDE S/P/B 106 97 - 115 MMOL/L 06/02/2024 2:36 AM [facility] CO2 27.3 21 - 32 MMOL/L 06/02/2024 2:36 AM [facility] CALCIUM S/P/B 8.8 8.5 - 10.1 MG/DL 06/02/2024 2:36 AM [facility] BILIRUBIN TOTAL S/P/B 0.6 0.2 - 1.2 MG/DL 06/02/2024 2:36 AM [facility] Comment: THIS ASSAY IS NOT RECOMMENDED FOR PATIENTS UNDERGOING TREATMENT WITH ELTROMBOPAG DUE TO THE POTENTIAL FOR FALSELY ELEVATED RESULTS. TOTAL PROTEIN S/P/B 7.8 6.4 - 8.2 G/DL 06/02/2024 2:36 AM [facility] ALBUMIN S/P/B 4.0 3.4 - 5.0 G/DL 06/02/2024 2:36 AM [facility] AST 10(L) 15 - 37 U/L 06/02/2024 2:36 AM [facility] ALT 16 14 - 55 U/L 06/02/2024 2:36 AM [facility] ALKALINE PHOSPHATASE S/P/B 71 50 - 136 U/L 06/02/2024 2:36 AM MOBILE MANAGER [facility] ANION GAP 3.7 2 - 10 MMOL/L 06/02/2024 2:36 AM [facility] BUN CREATININE RATIO 10.3 6 - 26 06/02/2024 2:36 AM [facility] A/G RATIO 1.1 1.0 - 2.0 RATIO 06/02/2024 2:36 AM [facility] GFR ESTIMATE 81(L) >90 ML/MIN/1.7 3 M2 06/02/2024 2:36 AM [facility] Comment: NOTE: eGFR is not calculated for patients <18 years of age or gender unknown. This is an estimated GFR calculation using the new CKD EPI creatinine equation without race and so does not require a correction factor for race. This estimated GFR should not be used for calculating drug doses. 06/02/2024 1:57 AM MOBILE MANAGER Kiarra Grigsby NP LABORATORY Final Result [facility] [address] [place] [address], [place] [phone] * (ABNORMAL) CBC W/DIFF AUTOMATED (06/02/2024 1:57 AM MOBILE MANAGER) WBC 7.16 4.5 - 11.0 x10'3/uL 06/02/2024 2:07 AM MOBILE MANAGER [facility] RBC 5.16 4.20 - 5.40 x10'6/uL 06/02/2024 2:07 AM [facility] HGB 14.7 12.0 - 16.0 G/DL 06/02/2024 2:07 AM [facility] HCT 44.7 38.0 - 48.0 % 06/02/2024 2:07 AM [facility] MCV 86.6 81.0 - 99.0 FL 06/02/2024 2:07 AM [facility] MCH 28.5 27.0 - 31.0 PG 06/02/2024 2:07 AM [facility] MCHC 32.9 32.0 - 36.0 G/DL 06/02/2024 2:07 AM [facility] RDW 12.3 11.5 - 14.5 % 06/02/2024 2:07 AM [facility] PLT 299 130 - 400 x10'3/uL 06/02/2024 2:07 AM [facility] MPV 11.0 9.3 - 12.2 FL 06/02/2024 2:07 AM [facility] DIFFERENTIAL TYPE AUTOMATED DIFFERENTIAL 06/02/2024 2:07 AM [facility] NEUTROPHILS % 46.2 % 06/02/2024 2:07 AM [facility] LYMPHOCYTES % 37.2 % 06/02/2024 2:07 AM [facility] MONOCYTES % 6.7 % 06/02/2024 2:07 AM [facility] EOSINOPHILS 8.5 % 06/02/2024 2:07 AM [facility] BASOPHILS 1.3 % 06/02/2024 2:07 AM [facility] IMMATURE GRANS % 0.1 % 06/02/19 2:07 AM [facility] ABS. NEUTROPHILS 3.31 1.80 - 7.70 x10'3/uL 06/02/2024 2:07 AM [facility] ABS. LYMPHOCYTES 2.66 1.00 - 4.80 x10'3/uL 06/02/2024 2:07 AM MOBILE MANAGER [facility] ABS. MONOCYTES 0.48 0.24 - 0.86 x10'3/uL 06/02/2024 2:07 AM [facility] ABS. EOSINOPHILS 0.61(H) 0.04 - 0.36 x10'3/uL 06/02/2024 2:07 AM MOBILE MANAGER [facility] ABS. BASOPHILS 0.09(H) 0.01 - 0.08 x10'3/uL 06/02/2024 2:07 AM MOBILE MANAGER [facility] ABS. IMMATURE GRANULOCYTES 0.01 0.00 - 0.49 x10'3/uL 06/02/2024 2:07 AM [facility] 06/02/2024 1:57 AM MOBILE MANAGER Kiarra Grigsby NP LABORATORY Final Result [facility] [address] [place] [address], * TROPONIN, QUANT (06/02/2024 1:57 AM MOBILE MANAGER) TROPONIN I HIGH SENSITIVITY <3 <54 ng/L 06/02/2024 2:36 AM MOBILE MANAGER [facility] Comment: HIGH DOSES OF BIOTIN, TROPONIN-SPECIFIC AUTOANTIBODIES, AND ANTIBODY THERAPY CONTAINING HAMA MAY INTERFERE WITH THIS TEST RESULT. CORRELATION TO CLINICAL HISTORY AND PRESENTATION RECOMMENDED. 06/02/2024 1:57 AM MOBILE MANAGER Kiarra Grigsby NP LABORATORY Final Result [facility] [address] [place] [address], [place] [phone] * LIPASE (06/02/2024 1:57 AM MOBILE MANAGER) LIPASE 36 13 - 75 UNITS/L 06/02/2024 2:36 AM MOBILE MANAGER [facility] 06/02/2024 1:57 AM MOBILE MANAGER Kiarra Grigsby MAIL MESSENGER LABORATORY Final Result [facility] [address] [place] [address], * ECG 12 lead (06/02/2024 1:56 AM MOBILE MANAGER) 06/02/2024 1:56 AM MOBILE MANAGER Narrative [facility] - 06/02/2024 5:32 AM MOBILE MANAGER [address] Test Date: 2024-06-02 Pat Name: MARIA R MOFFETTMARIEL Department: 41 Room: Gender: Female Snaker Tractor Driver: : 1995 Requested By: KIARRA GRIGSBY Order Number: [id number] Reading MD: Campos Mcnally Measurements Intervals [place] Rate: 84 P: 57 RI: 133 QRS: 48 QRSD: 77 T: 32 QT: 355 QTc: 421 Interpretive Statements SINUS RHYTHM WITH SINUS ARRHYTHMIA LOW QRS VOLTAGE IN PRECORDIAL LEADS [QRS DEFLECTION < 1.0 mV IN CHEST LEADS] No previous ECG available for comparison LE MANAGER Procedure Note Campos Mcnally MD - 06/02/[address] Test Date: 2024-06-02 Pat Name: MARIA R BLAIR Department: 41 Room: Gender: Female Snaker Tractor Driver: : 1995 Requested By: KIARRA GRIGSBY Order Number: [id number] Reading MD: Campos Mcnally Measurements Intervals [place] Rate: 84 P: 57 RI: 133 QRS: 48 QRSD: 77 T: 32 QT: 355 QTc: 421 Interpretive Statements SINUS RHYTHM WITH SINUS ARRHYTHMIA LOW QRS VOLTAGE IN PRECORDIAL LEADS [QRS DEFLECTION < 1.0 mV IN CHESTLEADS] No previous ECG available for comparison LE MANAGER us Kiarra Grigsby MAIL MESSENGER ECG ORDERABLES Final Result [facility] * Cytopath Cerv/Vag Thin Layer (12/26/2019 8:00 AM CDT) THIN PREP PAP [address] [address] Department of Pathology Pathology Report CERVICAL/VAGINAL PAP SMEAR REPORT Name: MARIA R BLAIR Age: 4 1995 (Age: 24) Location: [facility] Sex: F Collected Date: 12/26/2019 Hospital #: [id number] Date Received: 12/30/2019 Date Reported: 12/31/2019 Provider: STEWART BURLESON MD INTERPRETATION CERVICAL/ENDOCERVI JAMILAH: SATISFACTORY FOR EVALUATION. ENDOCERVICAL/TRANS FORMATION ZONE COMPONENT PRESENT. NEGATIVE FOR INTRAEPITHELIAL LESION OR MALIGNANCY. Electronically Signed Out By DONTRELL Rodriguez (ASCP) CLINICAL HISTORY Z12.4 PAP AND FACILITY MAINTENANCE TECHNICIAN SURGICAL HISTORY-UNKNOWN ThinPrep Pap Test with HR HPV testing in patient > 21 years with ASC-US diagnosis. Date of Last Menstrual Period: UNKNOWN Menstrual Status: Post SPECIMEN SUBMITTED CERVICAL/ENDOCERVI JMAILAH Specimen Received:1 Thin Prep Vial, Image Assisted [...] Burleson MD PATHOLOGY/CYTOLOGY ORDERA BLES Final Result [facility] [address] [place] [address], * HEPATITIS C ANTIBODY (04/02/2019 10:10 AM MOBILE MANAGER) HEPATITIS C AB NON-REACTI VE NON-REACT JING 04/03/2019 12:[address] [facility] Comment: ANTIBODIES TO HCV NOT DETECTED. DOES NOT EXCLUDE THE POSSIBILITY OF EXPOSURE TO HCV. 04/02/2019 10:1 0 AM MOBILE MANAGER Stewart Burleson MD LABORATORY Final Res ult Performing Organization Address City/[facility] Co de Phone Number [facility] [address] [place] [address], [place] [phone] [id number] from Last 3 Months or Most Recently Relevant to Health Maintenance Insurance [address] [place], [place] [id number] [place] [id number] Advance Directives * Full Code (Latest Code Status on File) Date Activated Date Inactivated Comments 11/11/2019 6:18 AM 11/12/2019 3:34 AM Care Teams Change House Attendant Relationship Specialty Start Date End Date Linette Roman NP [address] [place] [address] PCP - General NURSE PRACTITIONER 06/02/24
--- OUTSIDE RECORDS SUMMARY | 2024-06-10 00:17 | XMS_ITS | Clinical Summary ---
Author Organization [facility] [place] [address] Address [address] [place] [address] Care Team Providers Care Boiler Coverer Helper Name Role Phone Linette Roman NP Primary Care Provider [phone] Allergies Active Allergy Reactions Criticality Noted Date [...] on file Legal Sex Female 5:16 PM MANAGER PHARMACEUTICAL Gender Identity Not on file Sexual Orientation [...] patient's age to complete this topic Insurance [facility] HMO/PPO Address: [facility] [address] [place] [address] [facility] [address] [place] [address] Care Teams Boiler Coverer Helper Relationship Specialty Start Date End Date Linette Roman NP [facility] [place] [address] PCP - General Nurse Practitioner 08/20/23
--- OUTSIDE RECORDS SUMMARY | 2024-06-10 00:17 | XMS_ITS | Referral Summary ---
Author Organization [facility] [address] Address [address] [place] [address] Care Team Providers Care Hydraulic Hammer Operator Name Role Phone Linette Roman NP Primary Care Provider [phone] Allergies Active Allergy Reactions Criticality Noted Date [...] on file Legal Sex Female 5:16 PM PROCTOLOGIST Gender Identity Not on file Sexual Orientation [...] Plan of Treatment Not on file Insurance [facility] Care Teams Hydraulic Hammer Operator Relationship Specialty Start Date End Date Linette Roman NP [facility] [place] [address] PCP - General Nurse Practitioner 08/20/23
--- NOTE | 2024-06-10 11:33 | WPDHPUPDATE1 ---
History and Physical Update Update Date/Time: 06/10/24 11:33 History and Physical has been reviewed, including an updated exam of the patient. There are NO changes in the patient's condition. Risks, benefits, and alternatives have been discussed and questions answered. Patient agrees to proceed with procedure.
[2024-06-10] MEDS: ACETAMINOPHEN 500 MG TABLET 1000 MG PO (12:20)
[2024-06-10] MEDS: LACTATED RINGERS 1,000 ML 30 ML IV CONT (12:25)
[2024-06-10] MEDS: KETOROLAC 15 MG/ML VIAL (*BKC) IV PUSH (12:30)
--- NOTE | 2024-06-10 13:26 | P.PNAN_ITS ---
Anes - Initial Pre Proc Eval Procedure: Operation Date: 06/10/24 14:00 Proposed Procedures p Laparoscopic Cholecystectomy - Jesse Shahid MD Date/Time: 06/10/24 13:26 Surgeon: Jesse Shahid MD Pre Op Diagnosis: chronic cholecystitis with stones Patient Data Age: 28 Gender: F Height: 1.6 m Weight: 62.4 kg Last Vital Signs Temp 36.4 C 06/10/24 12:39 Pulse 93 06/10/24 12:39 Resp 16 06/10/24 12:39 BP 110/75 06/10/24 12:39 Pulse Ox 100 06/10/24 12:39 O2 Del Method Room Air 06/10/24 12:39 Allergies Allergy/AdvReac Type Severity Reaction Status Date / Time ciprofloxacin (From Cipro) Allergy Intermediate Rash Verified 06/10/24 12:36 Sulfa (Sulfonamide Allergy Hives Verified 06/10/24 12:36 Antibiotics) metoclopramide (From Reglan) AdvReac Shakiness Verified 06/10/24 12:36 Home Medications ?Medication ?Instructions ?Recorded ?Confirmed ?Type alprazolam 0.25 mg tablet (Xanax) 0.25 mg PO DAILY PRN panic 12/05/23 06/09/24 Rx attack(s) #30 tabs fluoxetine 10 mg capsule 10 mg PO QPM #30 caps 05/27/24 06/10/24 Rx hydrocodone 7.5 mg-acetaminophen 1 tablet PO Q6H PRN pain 06/09/24 06/09/24 History 325 mg tablet ondansetron 4 mg disintegrating 4 mg PO Q8H 06/09/24 06/10/24 History tablet Patient hx anesthesia problems: none Family hx anesthesia problems: post op nausea/vomiting Results Review: All pre-operative results and documents have been reviewed as part of the pre- operative evaluation. [facility] Past Medical History Medical History Gestational diabetes insipidus IUP (intrauterine ), incidental Dysphagia History of esophageal dilatation Esophageal dilatation Eosinophilic esophagitis Family History Family History Grandparent Diabetes mellitus Hypertension Uterine cancer Mother Psoriatic arthritis Other Depression Social History Social History Smoking status: Never smoker Alcohol intake: current Alcohol use details: social Substance use: never Lack of Transportation: No Lack of Food: Never True Current Housing: I Have Housing Concerned About Future Housing: No Difficulty Paying Gas/Electric Bills: No Difficulty Paying for Meds: No Currently Unemployed: No Education: Bachelor's Degree Difficulty w/ Childcare or Family Care: No Living arrangements: with family Gender identity (if verbalized by the patient): Female Spiritual care concerns: No Agree to blood products: Yes Anes - Eval Final PreProcedure Day of Procedure 06/10/24 13:26 Patient weight: normal Heart: regular rate and rhythm Lungs: clear to auscultation Airway: Mallampati scale class II Neurological: alert and oriented Last oral intake: >/= 8 hours ASA classification: II Emergent: no Anesthetic plan: proceed Anesthesia type and monitoring: general ETT and standard monitoring Results Review: All pre-operative results and documents have been reviewed as part of the pre- operative evaluation. Informed Consent: The patient's anesthetic plan and its attendant risks and benefits were discussed with the patient/family/POA. Questions were solicited and answers provided to the satisfaction of the patient/family/POA.
[2024-06-10] MEDS: SCOPOLAMINE 1 MG PATCH 1 PATCH TRANSDERM (13:30)
[2024-06-10 13:45] LABS: BEDSIDEPREGUCG Negative (Negative)
[2024-06-10] MEDS: ceFAZolin 2 GM/D5W 50 ML 2 GM/50 ML BAG IVPB (13:45)
[2024-06-10] MEDS: BUPIVACAINE/EPINEPHRINE 0.5% 30 ML VIAL INFILTRATE (14:17)
--- NOTE | 2024-06-10 14:56 | W.PM.PROC2 ---
Procedure Note - Detailed Date of Procedure 06/10/24 Pre-op Diagnosis chronic cholecystitis with stones Post-op Diagnosis Same Procedure Performed Laparoscopic cholecystectomy Surgeon Jesse Shahid MD Male Infertility Specialist Leonela Youngblood [facility] Anesthesia General and Local Indications Patient is a 28-year-old woman who has had epigastric pain that radiates straight through to her back since about 2017. The pain sometimes is in the right upper quadrant through to the back as well. In the last few weeks, this has gotten much worse. She is afraid to eat. She has pain even when she does not eat. I saw her in the office yesterday and she was having pain then as well as the night before. She has had a CT scan at an outside hospital which did show gallstones. Her lipase and liver enzymes were normal yesterday. She is felt to have chronic cholecystitis and is taken to surgery now for laparoscopic cholecystectomy. Findings Chronic inflammation was noted. No large gallstones were appreciated. There was no biliary ductal dilatation, no liver abnormalities. There were numerous adhesions to the gallbladder. Description of Procedure Patient was taken to surgery and induced into general anesthesia. The abdomen is prepped and draped. Trocars were placed in the usual fashion using Gamador optical trocars and a 5 mm camera. There were some omental adhesions to the undersurface of the liver which were taken down. Adhesions to the gallbladder, which were also omentum, were taken down. The gallbladder was able to be retracted anterosuperiorly. Traction was placed on the infundibulum of the gallbladder. Dissection was carried out in the cholecystohepatic triangle. The cystic artery was adherent on the anterior medial aspect of the cystic duct. The cystic artery was dissected away from the cystic duct. The cystic artery was then securely clipped and divided. The cystic duct was further dissected and we dissected the gallbladder off the liver over at least its lower 3rd. The cystic duct was then securely clipped and divided. We then continued dissecting the gallbladder free from the attachments to the liver. No entry into the gallbladder was made. No large gallstones were appreciated. There was little if any bleeding. Eventually the gallbladder was completely freed from the liver. It was placed in an Endo-Catch bag and retrieved through the 10 11 epigastric trocar site. We then replaced the 10 11 trocar and exposed the gallbladder fossa and right upper quadrant. Irrigation and suctioning were carried out. All looked good with no evidence of bleeding or bile leakage. We then evacuated CO2 and removed the trocar sleeves. Skin wounds were closed with subcuticular 4-0 Monocryl skin suture. The wounds were dressed with Exofin surgical adhesive. The patient was awakened and taken to recovery in good condition. Sponge and needle counts were correct x2. Estimated Blood Loss -5 Drains No Packing No Pathology Yes (Gallbladder) Complications None Condition Stable Disposition PACU [facility] Billing Surgery - Charge Forward: Surgery Billing (Laparoscopic cholecystectomy)
[2024-06-10] MEDS: fentaNYL CITRATE INJ (*CRX) 100 MCG/2 ML VIAL 25 MCG IV PUSH ×2 (15:09→15:13)
[2024-06-10] MEDS: oxyCODONE HCL (*CRX) 5 MG TAB IR PO (15:32)
== END 2024-06-10 16:04 | disposition home or self-care (01) ==
PROVIDERS: PCP Nurse Practitioner Adult Health; Visit Provider Surgery
PROC: 0FT44ZZ Resection of Gallbladder, Percutaneous Endoscopic Approach (ICD-10-PCS; CPT 47562; principal; 2024-06-10 14:00)
DX: K80.10 Calculus of gallbladder with chronic cholecystitis without obstruction (principal)
CPT/HCPCS: 47562; 88304; A9270; J0690; J1100; J1885; J2250; J2270; J2371; J2405; J2704; J3010; J7120

== ENCOUNTER 2024-06-26 10:04 | Outpatient (CLI) | payer BC, SELFPAY ==
--- OUTSIDE RECORDS SUMMARY | 2024-06-26 11:35 | XMS_ITS | Clinical Summary ---
Author Organization [facility] Address [facility] [place] [address] Care Team Providers Care Shot Polisher Name Role Phone Linette Roman NP Primary Care Provider [phone] Allergies Active Allergy Reactions Criticality Noted Date [...] Problem Noted Date Diagnosed Date Gestational diabetes ([facility]) 11/11/2019 Visit for preventive health examination 12/09/19 [...] (10/30/2018): Overview: bx not clear 11/2013 at [facility] but treated as psoriasis Anxiety and depression 05/16/2013 Overview (10/30/2018): Overview: Was on Lexapro for 4 years. Stopped in May 2016. [place] well. Nervous now as school is beginning. [...] Encounters Date Type Department Care Team Description 06/24/2024 7:41 PM CDT - 06/24/2024 10:06 PM CDT Emergency [facility] [place] [address] Rocky Ramos, DO Tachycardia Discharge Disposition: Home or Self Care (Routine Discharge) 06/24/2024 Travel 06/02/2024 1:44 AM HUMAN RESOURCES SPECIALIST - 06/02/2024 5:32 AM HUMAN RESOURCES SPECIALIST Emergency [facility] [place] [address] Alicia Cruz MD Abdominal Pain Discharge Disposition: [...] Sex Assigned at Female 06/02/2024 1:46 AM HUMAN RESOURCES SPECIALIST Legal Sex Female 2:21 PM CDT Gender Identity Not on file Sexual Orientation Not on file Last Filed Vital Signs Vital Sign Reading Time Taken Comments Blood Pressure 132/96 06/24/2024 7:24 PM CDT Pulse 90 06/24/2024 7:24 PM CDT Temperature 36.5 C (97.7 F) 06/24/2024 7:24 PM CDT Respiratory Rate 18 06/24/2024 7:24 PM CDT Oxygen Saturation 100% 06/24/2024 7:24 PM CDT Inhaled Oxygen Concentration - - Weight 63.5 kg (140 lb) 06/24/2024 7:24 PM CDT Height 160 cm (5' 3 ) 06/24/2024 7:24 PM CDT Body Mass Index 24.8 06/24/2024 7:24 PM CDT Plan of Treatment Health Maintenance [...] 2024 02/09/2020, 02/09/2019, 12/15/2016, Additional history exists PHQ-2 (Physician Stebbins) 04/16/2024 DTaP, Tdap and Td Vaccines (7 - [...] Procedure Name Priority Date/Time Associated Diagnosis Comments ECG 12-LEAD Routine 06/24/2024 8:01 PM CDT ELECTROCARDIOGRAM REPORT Routine 025 8:01 PM CDT POCT URINE (BACK OFFICE) STAT 06/24/2024 7:56 PM CDT CHORIONIC GONADOTROPIN HCG QL STAT 06/24/2024 7:56 PM CDT TROPONIN, QUANT STAT 06/24/2024 7:56 PM CDT D-DIMER, QUANTITATIVE STAT 06/24/2024 7:23 PM CDT CBC W/DIFF AUTOMATED STAT 06/24/2024 7:23 PM CDT MAGNESIUM STAT 06/24/2024 7:22 PM CDT TSH W/REFLEX STAT 06/24/2024 7:22 PM CDT COMPREHENSIVE METABOLIC PANEL STAT 06/24/2024 7:[address] ABD+PEL W CON STAT 06/02/2024 3:51 AM HUMAN RESOURCES SPECIALIST POCT URINE (BACK OFFICE) STAT 06/02/2024 3:18 AM HUMAN RESOURCES SPECIALIST XR CHEST PORTABLE STAT 06/02/2024 2:2 2 AM HUMAN RESOURCES SPECIALIST HC URINALYSIS AUTO W/O MICRO STAT 06/02/2024 2:05 AM HUMAN RESOURCES SPECIALIST LIPASE STAT 06/02/2024 1:57 AM HUMAN RESOURCES SPECIALIST TROPONIN, QUANT STAT 06/02/2024 1:57 AM HUMAN RESOURCES SPECIALIST COMPREHENSIVE METABOLIC PANEL STAT 06/02/2024 1:57 AM HUMAN RESOURCES SPECIALIST CBC W/DIFF AUTOMATED STAT 06/02/2024 1:57 AM HUMAN RESOURCES SPECIALIST ECG 12-LEAD Routine 06/02/2024 1:56 AM HUMAN RESOURCES SPECIALIST CYTOPATH CERV/VAG THIN LAYER Routine 12/26/2019 8:00 AM CDT HEPATITIS C ANTIBODY Routine 04/02/2019 10:10 AM HUMAN RESOURCES SPECIALIST Encounter for supervision of normal , unspecified, unspecified trimester (HHS/HCC) from Last 3 Months or Most Recently Relevant to Health Maintenance Results * ECG 12 lead (06/24/2024 8:01 PM CDT) Only the most recent of2 resultswithin the time period is included. 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 [address] Test Date: 2024-06-24 Pat Name: MARIA R BLAIR Department: 41 Room: [facility] Gender: Female Architectural Superintendent: [id number] : 1995 Requested By: SHANIQUE PEREZ Order Number: [id number] Reading MD: Ian Allan Measurements Intervals [place] Rate: 79 P: 51 HI: 120 QRS: 56 QRSD: 73 T: 42 QT: 375 QTc: 432 Interpretive Statements SINUS RHYTHM Compared to ECG 06/02/2024 01:56:09 Sinus arrhythmia no longer present No ischemic changes Preliminary EKG Interpretation by Karen Mosley M.D us Shanique Perez PA ECG ORDERABLES Final Resul t [facility] ([facility] RAD * EKG Reading (06/24/2024 8:01 PM CDT) Rocky Pinedo DO - 06/24/2024 8:01 PM CDT Rocky Ramos DO 06/24/2024 11:11 PM EKG Reading Date/Time: 06/24/2024 8:01 PM Performed by: Rocky Ramos DO Authorized by: Rocky Ramos DO Interpreted by ED physician Rhythm: sinus rhythm Rate: normal BPM: 79 QRS axis: normal Conduction: conduction normal ST Segments: ST segments normal Clinical impression: normal ECG us Rocky Ramos DO [facility] Final Result * POCT urine (06/24/2024 7:56 PM CDT) Only the most recent of2 resultswithin the time period is included. URINE HCG TEST NEGATIVE Internal Control: VALID Shanique GONZALEZ POINT OF CARE TEST ORDERABL ES Final Result * CHORIONIC GONADOTROPIN HCG QL (06/24/2024 7:56 PM CDT) [facility] PREG SCREEN-SERUM NEGATIVE 06/24/2024 9:24 PM CDT [facility] 06/24/2024 7:56 PM CDT Rocky Ramos DO LABORATORY Final Res ult [facility] [address] [place] [address], * TROPONIN, QUANT (06/24/2024 7:56 PM CDT) Only the most recent of2 resultswithin the time period is included. [facility] TROPONIN I HIGH SENSITIVITY <3 <54 ng/L 06/24/2024 9:30 PM CDT [facility] Comment: HIGH DOSES OF BIOTIN, TROPONIN-SPECIFIC AUTOANTIBODIES, AND ANTIBODY THERAPY CONTAINING HAMA MAY INTERFERE WITH THIS TEST RESULT. CORRELATION TO CLINICAL HISTORY AND PRESENTATION RECOMMENDED. 06/24/2024 7:56 PM CDT Miguel Connelly DO LABORATORY Final Result [facility] [address] [place] [address], [place] [phone] * D-DIMER, QUANTITATIVE (06/24/2024 7:23 PM CDT) [facility] D-DIMER 350 0 - 500 ng{FEU}/mL 06/24/2024 8:52 PM CDT [facility] Comment: D-Dimer values less than or equal to 500 ng/mL FEU have a negative predictive value of >95% for exclusion of deep vein thrombosis and pulmonary embolism. In patients over 50 (who tend to have higher normal baseline D-Dimer values), recent studies suggest age-adjusted D-Dimer cutoff values (calculated as: age [years] x 10 ng/mL) result in equivalent outcomes and no additional false negative findings. 06/24/2024 7:23 PM CDT Shanique GONZALEZ LABORATORY Final Resul t [facility] [address] [place] [address], * (ABNORMAL) CBC W/DIFF AUTOMATED (06/24/2024 7:23 PM CDT) Only the most recent of2 resultswithin the time period is included. WBC 9.32 4.5 - 11.0 x10'3/uL 06/24/2024 8:51 PM CDT [facility] RBC 4.95 4.20 - 5.40 x10'6/uL 06/24/2024 8:51 PM CDT [facility] HGB 14.0 12.0 - 16.0 G/DL 06/24/2024 8:51 PM CDT [facility] HCT 44.1 38.0 - 48.0 % 06/24/2024 8:51 PM CDT [facility] MCV 89.1 81.0 - 99.0 FL 06/24/2024 8:51 PM CDT [facility] MCH 28.3 27.0 - 31.0 PG 06/24/2024 8:51 PM CDT [facility] MCHC 31.7(L) 32.0 - 36.0 G/DL 06/24/2024 8:51 PM CDT [facility] RDW 12.9 11.5 - 14.5 % 06/24/2024 8:51 PM CDT [facility] PLT 375 130 - 400 x10'3/uL 06/24/2024 8:51 PM CDT [facility] MPV 10.1 9.3 - 12.2 FL 06/24/2024 8:51 PM CDT [facility] DIFFERENTIAL TYPE AUTOMATED DIFFERENTIAL 06/24/2024 8:51 PM CDT [facility] NEUTROPHILS % 72.6 % 06/24/2024 8:51 PM CDT [facility] LYMPHOCYTES % 16.4 % 06/24/2024 8:51 PM CDT [facility] MONOCYTES % 4.7 % 06/24/2024 8:51 PM CDT [facility] EOSINOPHILS 4.9 % 06/24/2024 8:51 PM CDT [facility] BASOPHILS 1.1 % 06/24/2024 8:51 PM CDT [facility] IMMATURE GRANS % 0.3 % 06/25/19 8:51 PM CDT [facility] ABS. NEUTROPHILS 6.76 1.80 - 7.70 x10'3/uL 06/24/2024 8:51 PM CDT [facility] ABS. LYMPHOCYTES 1.53 1.00 - 4.80 x10'3/uL 06/24/2024 8:51 PM CDT [facility] ABS. MONOCYTES 0.44 0.24 - 0.86 x10'3/uL 06/24/2024 8:51 PM CDT [facility] ABS. EOSINOPHILS 0.46(H) 0.04 - 0.36 x10'3/uL 06/24/2024 8:51 PM CDT [facility] ABS. BASOPHILS 0.10(H) 0.01 - 0.08 x10'3/uL 06/24/2024 8:51 PM CDT [facility] ABS. IMMATURE GRANULOCYTES 0.03 0.00 - 0.49 x10'3/uL 06/24/2024 8:51 PM CDT [facility] 06/24/2024 7:23 PM CDT Shanique GONZALEZ LABORATORY Final Resul t Performing Organization Address City/[facility] Co de Phone Number [facility] [address] [place] [address], [place] [phone] * TSH W/REFLEX (06/24/2024 7:22 PM CDT) TSH 2.040 0.358 - 3.74 uIU/ML 06/24/2024 8:36 PM CDT [facility] Comment: HIGH DOSES OF BIOTIN MAY INTERFERE WITH THIS TEST RESULT. CORRELATION TO CLINICAL HISTORY AND PRESENTATION RECOMMENDED. FREE T4 NOT INDICATED 06/24/2024 7:22 PM CDT Shanique GONZALEZ LABORATORY Final Resul t Performing Organization Address [facility] Co de Phone Number [facility] [address] [place] [address], [place] [phone] * (ABNORMAL) COMPREHENSIVE METABOLIC PANEL (06/24/2024 7:22 PM CDT) Only the most recent of2 resultswithin the time period is included. GLUCOSE 95 70 - 99 MG/DL 06/24/2024 8:36 PM CDT [facility] BUN 7 7 - 18 MG/DL 06/24/2024 8:36 PM CDT [facility] CREATININE S/P/B 0.90 0.55 - 1.02 MG/DL 06/24/2024 8:36 PM CDT [facility] SODIUM S/P/B 138 136 - 145 MMOL/L 06/24/2024 8:36 PM CDT [facility] POTASSIUM S/P/B 3.4(L) 3.5 - 5.1 MMOL/L 06/24/2024 8:36 PM CDT [facility] CHLORIDE S/P/B 105 97 - 115 MMOL/L 06/24/2024 8:36 PM CDT [facility] CO2 30.4 21 - 32 MMOL/L 06/24/2024 8:36 PM CDT [facility] CALCIUM S/P/B 9.1 8.5 - 10.1 MG/DL 06/24/2024 8:36 PM CDT [facility] BILIRUBIN TOTAL S/P/B 0.2 0.2 - 1.2 MG/DL 06/24/2024 8:36 PM CDT [facility] Comment: THIS ASSAY IS NOT RECOMMENDED FOR PATIENTS UNDERGOING TREATMENT WITH ELTROMBOPAG DUE TO THE POTENTIAL FOR FALSELY ELEVATED RESULTS. TOTAL PROTEIN S/P/B 7.3 6.4 - 8.2 G/DL 06/24/2024 8:36 PM CDT [facility] ALBUMIN S/P/B 3.9 3.4 - 5.0 G/DL 06/24/2024 8:36 PM CDT [facility] AST 12(L) 15 - 37 U/L 06/24/2024 8:36 PM CDT [facility] ALT 31 14 - 55 U/L 06/24/2024 8:36 PM CDT [facility] ALKALINE PHOSPHATASE S/P/B 82 50 - 136 U/L 06/24/2024 8:36 PM CDT [facility] ANION GAP 2.6 2 - 10 MMOL/L 06/24/2024 8:36 PM CDT [facility] BUN CREATININE RATIO 7.8 6 - 26 06/24/2024 8:36 PM CDT [facility] A/G RATIO 1.1 1.0 - 2.0 RATIO 06/24/2024 8:36 PM CDT [facility] GFR ESTIMATE 88(L) >90 ML/MIN/1.7 3 M2 06/24/2024 8:36 PM CDT [facility] Comment: NOTE: eGFR is not calculated for patients <18 years of age or gender unknown. This is an estimated GFR calculation using the new CKD EPI creatinine equation without race and so does not require a correction factor for race. This estimated GFR should not be used for calculating drug doses. 06/24/2024 7:22 PM CDT Shanique GONZALEZ LABORATORY Final Resul t [facility] [address] [place] [address], [place] [phone] * MAGNESIUM (06/24/2024 7:22 PM CDT) MAGNESIUM 2.2 1.8 - 2.4 MG/DL 06/24/2024 8:36 PM CDT [facility] 06/24/2024 7:22 PM CDT Shanique GONZALEZ LABORATORY Final Resul t [facility] [address] [place] [address], [place] [phone] * CT ABD+PEL W IV CON ONLY (06/02/2024 3:51 AM HUMAN RESOURCES SPECIALIST) Anatomical Region Laterality Modality Abdomen Computed Tomogra phy 06/02/2024 4:02 AM HUMAN RESOURCES SPECIALIST Impressions 06/02/2024 4:04 AM HUMAN RESOURCES SPECIALIST IMPRESSION: ===== 1. Cholelithiasis with contracted gallbladder. No further CT evidence of acute cholecystitis. Referred By: Interpreted By: Jesse Awad MD, 06/02/2024 4:02 AM Narrative 06/02/2024 4:04 AM HUMAN RESOURCES SPECIALIST [address] [address] EXAMINATION: CT Abdomen and Pelvis with contrast [...] Procedure Note Jesse Awad MD - 06/02/[address] [address] EXAMINATION: CT Abdomen and Pelvis with contrast [...] By: Jesse Awad MD, 06/02/2024 4:02 AM Jaime Levy NP CT Final Result * XR CHEST PORTABLE (06/02/2024 2:22 AM HUMAN RESOURCES SPECIALIST) Anatomical Region Laterality Modality Chest Radiographic Karolina ging 06/02/2024 2:26 AM HUMAN RESOURCES SPECIALIST Impressions 06/02/2024 2:27 AM HUMAN RESOURCES SPECIALIST IMPRESSION: ======== 1. No acute cardiopulmonary findings. Referred By: Interpreted By: Jesse Awad MD, 06/02/2024 2:26 AM Narrative 06/02/2024 2:27 AM HUMAN RESOURCES SPECIALIST [place] [address] Examination: Chest x-ray 1 view Exam Date/Time: 06/02/2024 2:12 AM Reason For Exam: epigastric pain Comparison: 12/06/2019 chest radiograph Technique: Single AP view of the chest was obtained. Findings: Heart size normal. No large effusion. No pneumothorax. No focal infiltrate or consolidative changes. Pulmonary vascularity within normal limits. ======== Procedure Note Jesse Awad MD - 06/02/2024 [place] [address] Examination: Chest x-ray 1 view Exam Date/Time: [...] By: Jesse Awad MD, 06/02/2024 2:26 AM Jaime Levy NP GENERAL IMAGING Final Result * URINALYSIS (06/02/2024 2:05 AM HUMAN RESOURCES SPECIALIST) SPECIMEN TYPE URINE CLEAN CATCH 06/02/2024 2:05 AM HUMAN RESOURCES SPECIALIST [facility] COLOR (U) LIGHT YELLOW 06/02/2024 2:15 AM [facility] TRANSPARENCY CLEAR 06/02/2024 2:15 AM [facility] SPECIFIC GRAVITY (U) 1.012 1.001 - 1.030 06/02/2024 2:15 AM [facility] U PH 5.5 5.0 - 9.0 06/02/2024 2:15 AM [facility] LEUKOCYTES (U) NEGATIVE NEGATIVE 06/02/2024 2:15 AM [facility] NITRITES NEGATIVE NEGATIVE 06/02/2024 2:15 AM [facility] PROTEIN RANDOM (U) NEGATIVE <30 MG/DL 06/02/2024 2:15 AM [facility] GLUCOSE (U) NORMAL NORMAL MG/DL 06/02/2024 2:15 AM [facility] KETONES MG/DL (U) NEGATIVE NEGATIVE MG/DL 06/02/2024 2:15 AM [facility] UROBILINOGEN NORMAL NORMAL MG/DL 06/02/2024 2:15 AM [facility] BILIRUBIN (U) NEGATIVE NEGATIVE MG/DL 06/02/2024 2:15 AM [facility] BLOOD (U) NEGATIVE NEGATIVE 06/02/2024 2:15 AM [facility] URINE SPECIMEN OBTAINED BY CLEAN CATCH PROCEDURE / Unknown 06/02/2024 2:05 AM HUMAN RESOURCES SPECIALIST us Jaime Levy NP URINE ORDERABLES Final Result [facility] [address] [place] [address], [place] [phone] * LIPASE (06/02/2024 1:57 AM HUMAN RESOURCES SPECIALIST) LIPASE 36 13 - 75 UNITS/L 06/02/2024 2:36 AM HUMAN RESOURCES SPECIALIST [facility] 06/02/2024 1:57 AM HUMAN RESOURCES SPECIALIST Jaime Levy NP LABORATORY Final Result [facility] [address] [place] [address], * Cytopath Cerv/Vag Thin Layer (12/26/2019 8:00 AM CDT) THIN PREP PAP [address] [phone] Department of Pathology Pathology Report CERVICAL/VAGINAL PAP SMEAR REPORT Name: MARIA R BLAIR Age: 4 1995 (Age: 24) Location: [facility] Sex: F Collected Date: 12/26/2019 Hospital #: [id number] Date Received: 12/30/2019 Date Reported: 12/31/2019 Provider: STEWART BURLESON MD INTERPRETATION CERVICAL/ENDOCERVI JAMILAH: SATISFACTORY FOR EVALUATION. ENDOCERVICAL/TRANS FORMATION ZONE COMPONENT PRESENT. NEGATIVE FOR INTRAEPITHELIAL LESION OR MALIGNANCY. Electronically Signed Out By DONTRELL Rodriguez (ASCP) CLINICAL HISTORY Z12.4 PAP AND QUALITY CONTROL ASSISTANT SURGICAL HISTORY-UNKNOWN ThinPrep Pap Test with HR [...] not effective in detecting cervical adenocarcinoma. [facility] 12/26/2019 8:00 AM CDT 12/30/2019 8:00 AM CDT Comment:CERVICAL/ENDOCERVICA L Stewart Burleson MD PATHOLOGY/CYTOLOGY ORDERA BLES Final Result Performing Organization Address [facility] Co de Phone Number [facility] [address] [place] [address], [place] [phone] * HEPATITIS C ANTIBODY (04/02/2019 10:10 AM HUMAN RESOURCES SPECIALIST) HEPATITIS C AB NON-REACTI VE NON-REACT JING 04/03/2019 12:44 AM HUMAN RESOURCES SPECIALIST [facility] Comment: ANTIBODIES TO HCV NOT DETECTED. DOES NOT EXCLUDE THE POSSIBILITY OF EXPOSURE TO HCV. 04/02/2019 10:1 0 AM HUMAN RESOURCES SPECIALIST Stewart Burleson MD LABORATORY Final Res ult Performing Organization Address [facility] Co de Phone Number [facility] [address] [place] [address], [place] [phone] from Last 3 Months or Most Recently Relevant to Health Maintenance Insurance [place] [id number] [place] [address] Advance Directives * Full Code (Latest Code Status on File) Date Activated Date Inactivated Comments 11/11/2019 6:18 AM 11/12/2019 3:34 AM Care Teams Shot Polisher Relationship Specialty Start Date End Date Linette Roman NP [address] [place] [address] PCP - General NURSE PRACTITIONER 06/02/24
--- OUTSIDE RECORDS SUMMARY | 2024-06-26 11:35 | XMS_ITS | Encounter Summary ---
Author Organization [facility] Address [address] [place] [address] Care Team Providers Care Marble Cleaner Name Role Phone Linette Roman NP Primary Care Provider [phone] Reason for Visit * Reason Comments Tachycardia Encounter Details Date Type Department Care Team ([facility] st Contact Info) Description 06/24/2024 7:41 PM CDT - 06/24/2024 10:06 PM CDT Emergency [facility] [place] [address] Rocky Ramso, DO [address] [place], [place] [address] Tachycardia Discharge Disposition: Home or Self Care (Routine Discharge) Social History Tobacco Use Types Packs/Day Years [...] Sex Assigned at Female 06/02/2024 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 Answer Date of Assessment Author Status No 11/11/2019 7:03 AM CDT Activ e * Do you have serious difficulty walking or climbing stairs? Answer Date of Assessment Author Status No 11/11/2019 7:03 AM CDT Rosemary Wade RN Active * Do you have difficulty dressing or bathing? Answer Date of Assessment Author Status No 11/11/2019 7:03 AM CDT Rosemary Wade RN Active * Because of a physical, mental, or emotional condition, do you have difficulty doing errands alone such as visiting a doctor's office or shopping? Answer Date of Assessment Author Status No 11/11/2019 7:03 AM CLARICET Rosemary Wade RN Active documented as of this encounter Mental Status * Because of a physical, mental, or emotional condition, do you have serious difficulty concentrating, remembering, or making decisions? Answer Entry Date Author Status No 11/11/2019 7:03 AM CDT Rosemary Waed RN Active documented in this encounter Discharge Instructions * Discharge Instructions* Rocky Ramos DO - 06/24/2024 9:55 PM CDT The testing today did not show any life-threatening or emergent process Please follow up with your primary care provider, as you likely will need a holter monitor * Attachments The following attachments cannot be sent through Care Everywhere. * Palpitations (Panamanian) documented in this encounter Medications at Time of Discharge HYDROcodone-acetamin ophen (NORCO) 7.5-325 MG tabletIndications:[place] Pain < 7 Day Supply Take 1 tablet by mouth every 6 (six) hours as needed for Pain. Indications: Acute Pain < 7 Day Supply 21 tablet 06/02/2024 ondansetron (ZOFRAN-ODT) 4 MG disintegrating tablet Take 1 tablet (4 mg total) by mouth every 8 (eight) hours as needed for Nausea. 20 tablet 06/02/2024 documented as of this encounter ED Notes * Zenaida Moreno - 06/24/2024 9:37 PM CDT NO ANSWER * Rocky Ramos, - 06/24/2024 8:33 PM CDTAssociated Order(s): EKG Reading Chief Complaint Chief Complaint Patient presents with Tachycardia History of Present Illness 28-year-old female presents emergency department for intermittent palpitations that she noticed today while getting a pedicure. Patient checked her watch, and heart rate was in the 140s. Does report having some intermittent chest pain also. Medical History ALLERGIES: Review of patient's allergies indicates: Allergen Reactions Bactrim [Sulfamethoxazole-Trimethoprim] Swelling and Chest pressure Ciprofloxacin Shortness of Breath Reglan [Metoclopramide] Other (see comment) Tartive dyskinesia Sulfa Antibiotics Nausea and Vomiting and Rash MEDICATIONS: Prior to Admission medications Medication Sig Start Date End Date Taking? Authorizing Provider HYDROcodone-acetaminophen (NORCO) 7.5-325 MG tablet Take 1 tablet by mouth every 6 (six) hours as needed for Pain. Indications: Acute Pain < 7 Day Supply 06/02/24 Alicia Cruz MD ondansetron (ZOFRAN-ODT) 4 MG disintegrating tablet Take 1 tablet (4 mg total) by mouth every 8 (eight) hours as needed for Nausea. 06/02/24 Alicia Cruz MD PAST MEDICAL HISTORY: Past Medical History: Diagnosis Date Anxiety Depression Eosinophilic esophagitis History of esophageal stricture Psoriasis PAST SURGICAL HISTORY: Past Surgical History: Procedure Laterality Date EGD 11/07/2014 FAMILY HISTORY: Family History Problem Relation Name Age of Onset Other (barretts) Maternal Grandmother SOCIAL HISTORY: Social History Tobacco Use Smoking status: Never Smokeless tobacco: Never Substance Use Topics Alcohol use: Not Currently Comment: 2 drinks every 2 weeks Drug use: No Review of Systems Review of Systems Physical Exam Filed Vitals: 06/24/24 1924 BP: (!) 132/96 Pulse: 90 Resp: 18 Temp: 97.7 ??F (36.5 ??C) TempSrc: Temporal SpO2: 100% Weight: 63.5 kg (140 lb) Height: 1.6 m (5' 3 ) Physical Exam Vitals and nursing note reviewed. Constitutional: General: She is not in acute distress. Appearance: Normal appearance. HENT: Head: Normocephalic and atraumatic. Cardiovascular: Rate and Rhythm: Normal rate and regular rhythm. Pulses: Normal pulses. Heart sounds: Normal heart sounds. No murmur heard. Pulmonary: Effort: Pulmonary effort is normal. No respiratory distress. Breath sounds: Normal breath sounds. Abdominal: Tenderness: There is no abdominal tenderness. There is no guarding. Skin: General: Skin is warm and dry. Neurological: General: No focal deficit present. Mental Status: She is alert and oriented to person, place, and time. Psychiatric: Mood and Affect: Mood normal. Behavior: Behavior normal. Diagnostic Studies / Procedures ELECTROCARDIOGRAMS: Results for orders placed or performed during the hospital encounter of 06/24/24 ECG 12 lead Narrative [address] Test Date: 2024-06-24 Pat Name: MARIA R BLAIR Department: 41 Room: Gender: Female Watch Manufacturing Supervisor: [id number] : 1995 Requested By: SHANIQUE PEREZ Order Number: [id number] Reading MD: Measurements Intervals [place] Rate: 79 P: 51 SD: 120 QRS: 56 QRSD: 73 T: 42 QT: 375 QTc: 432 Interpretive Statements SINUS RHYTHM Compared to ECG 06/02/2024 01:56:09 Sinus arrhythmia no longer present LABORATORY STUDIES: Results for orders placed or performed during the hospital encounter of 06/24/24 CBC W/DIFF AUTOMATED Result Value Ref Range WBC 9.32 4.5 - 11.0 x10'3/uL RBC 4.95 4.20 - 5.40 x10'6/uL HGB 14.0 12.0 - 16.0 G/DL HCT 44.1 38.0 - 48.0 % MCV 89.1 81.0 - 99.0 FL MCH 28.3 27.0 - 31.0 PG MCHC 31.7 (L) 32.0 - 36.0 G/DL RDW 12.9 11.5 - 14.5 % PLT 375 130 - 400 x10'3/uL MPV 10.1 9.3 - 12.2 FL DIFFERENTIAL TYPE AUTOMATED DIFFERENTIAL NEUTROPHILS % 72.6 % LYMPHOCYTES % 16.4 % MONOCYTES % 4.7 % EOSINOPHILS 4.9 % BASOPHILS 1.1 % IMMATURE GRANS % 0.3 % ABS. NEUTROPHILS 6.76 1.80 - 7.70 x10'3/uL ABS. LYMPHOCYTES 1.53 1.00 - 4.80 x10'3/uL ABS. MONOCYTES 0.44 0.24 - 0.86 x10'3/uL ABS. EOSINOPHILS 0.46 (H) 0.04 - 0.36 x10'3/uL ABS. BASOPHILS 0.10 (H) 0.01 - 0.08 x10'3/uL ABS. IMMATURE GRANULOCYTES 0.03 0.00 - 0.49 x10'3/uL COMPREHENSIVE METABOLIC PANEL Result Value Ref Range GLUCOSE 95 70 - 99 MG/DL BUN 7 7 - 18 MG/DL CREATININE S/P/B 0.90 0.55 - 1.02 MG/DL SODIUM S/P/B 138 136 - 145 MMOL/L POTASSIUM S/P/B 3.4 (L) 3.5 - 5.1 MMOL/L CHLORIDE S/P/B 105 97 - 115 MMOL/L CO2 30.4 21 - 32 MMOL/L CALCIUM S/P/B 9.1 8.5 - 10.1 MG/DL BILIRUBIN TOTAL S/P/B 0.2 0.2 - 1.2 MG/DL TOTAL PROTEIN S/P/B 7.3 6.4 - 8.2 G/DL ALBUMIN S/P/B 3.9 3.4 - 5.0 G/DL AST 12 (L) 15 - 37 U/L ALT 31 14 - 55 U/L ALKALINE PHOSPHATASE S/P/B 82 50 - 136 U/L ANION GAP 2.6 2 - 10 MMOL/L BUN CREATININE RATIO 7.8 6 - 26 A/G RATIO 1.1 1.0 - 2.0 RATIO GFR ESTIMATE 88 (L) >90 ML/MIN/1.73 M2 TSH W/REFLEX Result Value Ref Range TSH 2.040 0.358 - 3.74 uIU/ML D-DIMER, QUANTITATIVE Result Value Ref Range D-DIMER 350 0 - 500 ng[FEU]/mL MAGNESIUM Result Value Ref Range MAGNESIUM 2.2 1.8 - 2.4 MG/DL TROPONIN, QUANT Result Value Ref Range TROPONIN I HIGH SENSITIVITY <3 <54 ng/L CHORIONIC GONADOTROPIN HCG QL Result Value Ref Range PREG SCREEN-SERUM NEGATIVE POCT urine Result Value Ref Range URINE HCG TEST NEGATIVE Internal Control: VALID IMAGING STUDIES No orders to display EKG Reading Date/Time: 06/24/2024 8:01 PM Performed by: Rocky Ramos DO Authorized by: Rocky Ramos DO Interpreted by ED physician Rhythm: sinus rhythm Rate: normal BPM: 79 QRS axis: normal Conduction: conduction normal ST Segments: ST segments normal Clinical impression: normal ECG ED Course / Medical Decision Making 9:50PM - updated patient on labs Medical Decision Making Patient presented with intermittent palpitations. Patient stable vitals. Unremarkable labs. At thistime, we do not see any emergent process causing the palpitations. Will discharge patient back home. Patient may need some type of Holter monitor in the near future. Counseled patient to follow-up with primary care provider in 1 week. Problems Addressed: Palpitations: acute illness or injury Amount and/or Complexity of Data Reviewed Labs: ordered. ECG/medicine tests: ordered and independent interpretation performed. 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 Reports that her left arm was tingling. Also having some chest pains for the last couple months. * LISA Bates - 06/24/2024 7:19 PM CDT [place], [place] EMERGENCY DEPARTMENT ENCOUNTER Medical Screening Examination 06/24/24 7:25 PM Chief Complaint : No chief complaint on file. HPI : Maria R Blair is a 28-year-old female who presents due to heart racing. Says she was getting a pedicure when she felt hot, dizzy, sweaty, and nauseous and noted her apple watch said her HR was 140s. Says kept coming back in waves. Had chest pain yesterday AM. Denies shortness of breath. Vital Signs: Filed Vitals: 06/24/241923 BP: (!) 132/96 Pulse: 90 Resp: 18 Temp: 97.7 ??F (36.5 ??C) TempSrc: Temporal SpO2: 100% Weight: 63.5 kg (140 lb) Height: 1.6 m (5' 3 ) Physical exam: A brief physical exam was completed to facilitate/expedite patient care. Plan: Necessary labs/imaging/medications ordered to initiate pt care. LISA Bates 06/24/241924 Cosigned by Rocky Ramos DO at 06/25/2024 12:13 AM CDT documented in this encounter Plan of Treatment Not on file documented as of this encounter Procedures Procedure Name Priority Date/Time Associated Diagnosis Comments ECG 12-LEAD Routine 06/24/2024 8:01 PM CDT ELECTROCARDIOGRAM REPORT Routine 025 8:01 PM CDT POCT URINE (BACK OFFICE) STAT 06/24/2024 7:56 PM CDT CHORIONIC GONADOTROPIN HCG QL STAT 06/24/2024 7:56 PM CDT TROPONIN, QUANT STAT 06/24/2024 7:56 PM CDT D-DIMER, QUANTITATIVE STAT 06/24/2024 7:23 PM CDT CBC W/DIFF AUTOMATED STAT 06/24/2024 7:23 PM CDT TSH W/REFLEX STAT 06/24/2024 7:22 PM CDT COMPREHENSIVE METABOLIC PANEL STAT 06/24/2024 7:22 PM CDT MAGNESIUM STAT 06/24/2024 7:22 PM CDT documented in this encounter Results * ECG 12 lead (06/24/2024 8:01 PM CDT) 06/24/2024 8:01 PM CDT Narrative [facility] - 06/25/2024 8:30 AM CDT [facility] [place] [facility] Test Date: 2024-06-24 Pat Name: MARIA R BLAIR Department: 41 Room: [facility] Gender: Female Watch Manufacturing Supervisor: [id number] : 1995 Requested By: SHANIQUE PEREZ Order Number: [id number] Reading MD: Ian Allan Measurements Intervals [place] Rate: 79 P: 51 SD: 120 QRS: 56 QRSD: 73 T: 42 QT: 375 QTc: 432 Interpretive Statements SINUS RHYTHM Compared to ECG 06/02/2024 01:56:09 Sinus arrhythmia no longer present No ischemic changes Preliminary EKG Interpretation by Karen Mosley M.D Procedure Note Ian Allan MD - 06/25/[address] Test Date: 2024-06-24 Pat Name: MARIA R BLAIR Department: 41 Room: EXAM24 Gender: Female Watch Manufacturing Supervisor: [id number] : 1995 Requested By: SHANIQUE PEREZ Order Number: [id number] Reading MD: Ian Allan Measurements Intervals [place] Rate: 79 P: 51 SD: 120 QRS: 56 QRSD: 73 T: 42 QT: 375 QTc: 432 Interpretive Statements SINUS RHYTHM Compared to ECG 06/02/2024 01:56:09 Sinus arrhythmia no longer present No ischemic changes Preliminary EKG Interpretation by Karen Mosley M.D us Shanique Perez PA ECG ORDERABLES Final Resul t Performing Organization Address [facility] Co de Phone Number [facility] RAD * EKG Reading (06/24/2024 8:01 PM CDT) Narrative Rcoky Ramos DO - 06/24/2024 8:01 PM CDT Rocky Ramos DO 06/24/2024 11:11 PM EKG Reading Date/Time: 06/24/2024 8:01 PM Performed by: Rocky Ramos DO Authorized by: Rocky Ramos DO Interpreted by ED physician Rhythm: sinus rhythm Rate: normal BPM: 79 QRS axis: normal Conduction: conduction normal ST Segments: ST segments normal Clinical impression: normal ECG Rocky Ramos DO [place] [facility] Final Result * CHORIONIC GONADOTROPIN HCG QL (06/24/2024 7:56 PM CDT) PREG SCREEN-SERUM NEGATIVE 06/24/2024 9:24 PM CDT [facility] 06/24/2024 7:56 PM CDT Rocky Ramos DO LABORATORY Final Res ult Performing Organization Address [facility] Co de Phone Number [facility] [address] [place] [address], [place] [phone] * TROPONIN, QUANT (06/24/2024 7:56 PM CDT) TROPONIN I HIGH SENSITIVITY <3 <54 ng/L 06/24/2024 9:30 PM CDT [facility] Comment: HIGH DOSES OF BIOTIN, TROPONIN-SPECIFIC AUTOANTIBODIES, AND ANTIBODY THERAPY CONTAINING HAMA MAY INTERFERE WITH THIS TEST RESULT. CORRELATION TO CLINICAL HISTORY AND PRESENTATION RECOMMENDED. 06/24/2024 7:56 PM CDT Miguel Connelly DO LABORATORY Final Result [facility] [address] [place] [address], * POCT urine (06/24/2024 7:56 PM CDT) URINE HCG TEST NEGATIVE Internal Control: VALID us Shanique GONZALEZ POINT OF CARE TEST ORDERABL ES Final Result * D-DIMER, QUANTITATIVE (06/24/2024 7:23 PM CDT) D-DIMER 350 0 - 500 ng{FEU}/mL 06/24/2024 8:52 PM CDT [facility] Comment: D-Dimer values less [...] false negative findings. 06/24/2024 7:23 PM CDT us Shanique GONZALEZ LABORATORY Final Resul t [facility] [address] [place] [address], * (ABNORMAL) CBC W/DIFF AUTOMATED (06/24/2024 7:23 PM CDT) [facility] WBC 9.32 4.5 - 11.0 x10'3/uL 06/24/2024 8:51 PM CDT [facility] RBC 4.95 4.20 - 5.40 x10'6/uL 06/24/2024 8:51 PM CDT [facility] HGB 14.0 12.0 - 16.0 G/DL 06/24/2024 8:51 PM CDT [facility] HCT 44.1 38.0 - 48.0 % 06/24/2024 8:51 PM CDT [facility] MCV 89.1 81.0 - 99.0 FL 06/24/2024 8:51 PM CDT [facility] MCH 28.3 27.0 - 31.0 PG 06/24/2024 8:51 PM CDT [facility] MCHC 31.7(L) 32.0 - 36.0 G/DL 06/24/2024 8:51 PM CDT [facility] RDW 12.9 11.5 - 14.5 % 06/24/2024 8:51 PM CDT [facility] PLT 375 130 - 400 x10'3/uL 06/24/2024 8:51 PM CDT [facility] MPV 10.1 9.3 - 12.2 FL 06/24/2024 8:51 PM CDT [facility] DIFFERENTIAL TYPE AUTOMATED DIFFERENTIAL 06/24/2024 8:51 PM CDT [facility] NEUTROPHILS % 72.6 % 06/24/2024 8:51 PM CDT [facility] LYMPHOCYTES % 16.4 % 06/24/2024 8:51 PM CDT [facility] MONOCYTES % 4.7 % 06/24/2024 8:51 PM CDT [facility] EOSINOPHILS 4.9 % 06/24/2024 8:51 PM CDT [facility] BASOPHILS 1.1 % 06/24/2024 8:51 PM CDT [facility] IMMATURE GRANS % 0.3 % 06/25/19 8:51 PM CDT [facility] ABS. NEUTROPHILS 6.76 1.80 - 7.70 x10'3/uL 06/24/2024 8:51 PM CDT [facility] ABS. LYMPHOCYTES 1.53 1.00 - 4.80 x10'3/uL 06/24/2024 8:51 PM CDT [facility] ABS. MONOCYTES 0.44 0.24 - 0.86 x10'3/uL 06/24/2024 8:51 PM CDT [facility] ABS. EOSINOPHILS 0.46(H) 0.04 - 0.36 x10'3/uL 06/24/2024 8:51 PM CDT [facility] ABS. BASOPHILS 0.10(H) 0.01 - 0.08 x10'3/uL 06/24/2024 8:51 PM CDT [facility] ABS. IMMATURE GRANULOCYTES 0.03 0.00 - 0.49 x10'3/uL 06/24/2024 8:51 PM CDT [facility] 06/24/2024 7:23 PM CDT Shanique GONZALEZ LABORATORY Final Resul t [facility] [address] [place] [address], * MAGNESIUM (06/24/2024 7:22 PM CDT) MAGNESIUM 2.2 1.8 - 2.4 MG/DL 06/24/2024 8:36 PM CDT [facility] 06/24/2024 7:22 PM CDT Shanique GONZALEZ LABORATORY Final Resul t Performing Organization Address [facility] Co de Phone Number [facility] [address] [place] [address], * TSH W/REFLEX (06/24/2024 7:22 PM CDT) TSH 2.040 0.358 - 3.74 uIU/ML 06/24/2024 8:36 PM CDT [facility] Comment: HIGH DOSES OF BIOTIN MAY INTERFERE WITH THIS TEST RESULT. CORRELATION TO CLINICAL HISTORY AND PRESENTATION RECOMMENDED. FREE T4 NOT INDICATED 06/24/2024 7:22 PM CDT us Shanique GONZALEZ LABORATORY Final Resul t Performing Organization Address City/[facility]/ZIP Co de Phone Number [facility] [address] [place] [address], [place] [phone] * (ABNORMAL) COMPREHENSIVE METABOLIC PANEL (06/24/2024 7:22 PM CDT) GLUCOSE 95 70 - 99 MG/DL 06/24/2024 8:36 PM CDT [facility] BUN 7 7 - 18 MG/DL 06/24/2024 8:36 PM CDT [facility] CREATININE S/P/B 0.90 0.55 - 1.02 MG/DL 06/24/2024 8:36 PM CDT [facility] SODIUM S/P/B 138 136 - 145 MMOL/L 06/24/2024 8:36 PM CDT [facility] POTASSIUM S/P/B 3.4(L) 3.5 - 5.1 MMOL/L 06/24/2024 8:36 PM CDT [facility] CHLORIDE S/P/B 105 97 - 115 MMOL/L 06/24/2024 8:36 PM CDT [facility] CO2 30.4 21 - 32 MMOL/L 06/24/2024 8:36 PM CDT [facility] CALCIUM S/P/B 9.1 8.5 - 10.1 MG/DL 06/24/2024 8:36 PM CDT [facility] BILIRUBIN TOTAL S/P/B 0.2 0.2 - 1.2 MG/DL 06/24/2024 8:36 PM CDT [facility] Comment: THIS ASSAY IS NOT RECOMMENDED FOR PATIENTS UNDERGOING TREATMENT WITH ELTROMBOPAG DUE TO THE POTENTIAL FOR FALSELY ELEVATED RESULTS. TOTAL PROTEIN S/P/B 7.3 6.4 - 8.2 G/DL 06/24/2024 8:36 PM CDT [facility] ALBUMIN S/P/B 3.9 3.4 - 5.0 G/DL 06/24/2024 8:36 PM CDT [facility] AST 12(L) 15 - 37 U/L 06/24/2024 8:36 PM CDT [facility] ALT 31 14 - 55 U/L 06/24/2024 8:36 PM T [facility] ALKALINE PHOSPHATASE S/P/B 82 50 - 136 U/L 06/24/2024 8:36 PM CDT [facility] ANION GAP 2.6 2 - 10 MMOL/L 06/24/2024 8:36 PM CDT [facility] BUN CREATININE RATIO 7.8 6 - 26 06/24/2024 8:36 PM CDT [facility] A/G RATIO 1.1 1.0 - 2.0 RATIO 06/24/2024 8:36 PM CDT [facility] GFR ESTIMATE 88(L) >90 ML/MIN/1.7 3 M2 06/24/2024 8:36 PM CDT [facility] Comment: NOTE: eGFR is not calculated for patients <18 years of age or gender unknown. This is an estimated GFR calculation using the new CKD EPI creatinine equation without race and so does not require a correction factor for race. This estimated GFR should not be used for calculating drug doses. 06/24/2024 7:22 PM CDT us Shanique GONZALEZ LABORATORY Final Resul t [facility] [address] [place] [address], documented in this encounter Visit Diagnoses Diagnosis Palpitations- Primary documented in this encounter Care Teams Marble Cleaner Relationship Specialty Start Date End Date Linette Roman NP [address] [place] [id number] PCP - General NURSE PRACTITIONER 06/02/24 documented as of this encounter
--- OUTSIDE RECORDS SUMMARY | 2024-06-26 11:35 | XMS_ITS | Clinical Summary ---
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
--- OUTSIDE RECORDS SUMMARY | 2024-06-26 11:35 | XMS_ITS | Referral Summary ---
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
--- NOTE | 2024-07-10 12:10 | WPDHOLTEREM ---
Holter/Event Monitor Holter/Event Monitor Date of procedure: 06/26/24 Holter/Event Procedure: 3-7 Day Holter Monitor Indications: Palpitations Conclusion: 1. 3 days holter monitor on 06/26/24. 2. Predominant rhythm is sinus rhythm. HR range 54-154 bpm; average 85 bpm. HR at 154 bpm was on 06/27/24 at 9:12 pm. 3. There are rare premature supraventricular complexes, rare supraventricular couplets, and rare supraventricular triplets. There is 1 episode of supraventricular tachycardia at 135 bpm lasting 4 beats. 4. No premature ventricular complexes. No ventricular tachycardia. 5. No significant pauses greater than 3 seconds. 6. No symptoms available for correlation.
== END 2024-06-26 10:05 | disposition home or self-care (01) ==
PROVIDERS: PCP Nurse Practitioner Adult Health; Visit Provider Nurse Practitioner Adult Health
DX: I49.1 Atrial premature depolarization (principal); I47.19 Other supraventricular tachycardia; R00.2 Palpitations
CPT/HCPCS: 93242

== ENCOUNTER 2024-10-06 08:57 | Outpatient (CLI) | payer BC, SELFPAY ==
--- NOTE | ~2024-10-06 | XR_ITS ---
EXAM/ PROCEDURE: XR elbow LT 2V - 10/06/2024 9:00 CDT HISTORY: 29 years old Female with M25.522 - Pain in left elbow COMPARISON: None available TECHNIQUE: Three view(s) FINDINGS/ IMPRESSION: There are no fractures or dislocations.Joint spaces are within normal limits Reviewed, dictated and finalized at location A.
== END 2024-10-06 08:58 | disposition home or self-care (01) ==
LOC: ANHBWCIMG 09:00
PROVIDERS: PCP Nurse Practitioner Adult Health; Visit Provider Nurse Practitioner Adult Health
DX: M25.522 Pain in left elbow (principal)
CPT/HCPCS: 73070

== ENCOUNTER 2024-10-23 10:24 | Observation (INO) | payer BC, SELFPAY ==
--- NOTE | ~2024-10-23 | CT_ITS ---
CLINICAL INDICATION: Epigastric pain COMPARISON: None . TECHNIQUE: Multiple contiguous axial images of the abdomen and pelvis were performed following the ad ministration of with 100 mL Omnipaque-350 intravenous contrast The dose-length product (DLP) was 391.70 mGy-cm. Automated exposure control and iterative reconstruction technique were employed. FINDINGS/OBSERVATIONS: Visualized lower thorax: The bilateral lung bases are clear. The heart is of normal size, without pericardial effusion. Small hiatal hernia is present with circumferential mural thickening. Liver: The liver demonstrates homogeneous enhancement and is not enlarged . Gallbladder and biliary system: The gallbladder is surgically absent. Pancreas: Loss of fatty infiltration of the pancreas, which may be seen in early pancreatitis with gl obal enlargement of the pancreas. No surrounding inflammatory change is present. Spleen: The spleen enhances homogeneously and is not enlarged. Kidneys: Mild right-sided hydroureteronephrosis with malrotation of the right kidney and wall enhance ment of the minimally dilated right ureter. No obstructing stones are identified along the entirety of the course of the right ureter. The remainder of the bilateral kidneys otherwise enhance symmetrically. No left-sided hydronephrosis. No renal calculi detected bilaterally. Adrenal glands: Unremarkable. Gastrointestinal tract: The proximal stomach is distended with both fluid and air, without significan t mural thickening or surrounding inflammatory change. Fecal stasis within the colon. Appendix: The air-filled appendix is of normal caliber (axial series, images 104 through 126). Vasculature: Prominence of the bilateral gonadal veins, for which clinical correlation is needed for findings suggesting pelvic congestion syndrome. Lymph nodes: No pathologically enlarged or morphologically suspicious lymph nodes within the retroperitoneum or at the root of the mesentery. Pelvic structures: The bladder is only minimally distended, and otherwise unremarkable. The uterus is retroverted and retroflexed, with an obliquely placed intrauterine device Body wall and musculoskeletal: Small fat-containing and likely omental containing umbilical hernia. No significant degenerative disease within the lower thoracic or lumbosacral spine. IMPRESSION: Loss of fatty infiltration of the pancreas, which may be seen in early pancreatitis for which clinica l correlation is needed. Circumferential mural thickening within the distal esophagus. Reviewed, dictated and finalized at location A. IMPRESSION: Loss of fatty infiltration of the pancreas, which may be seen in early pancreat itis for which clinical correlation is needed. Circumferential mural thickening within the distal esophagus.
[2024-10-23 10:26] VITALS: BP 149/95; PULSE 103; RESP 16; TEMP 36.4; O2SAT 100
--- OUTSIDE RECORDS SUMMARY | 2024-10-23 10:27 | XMS_ITS | Clinical Summary ---
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 [place] [address] Care Teams Manufacturing Laborer Relationship Specialty Start Date End Date Linette Roman NP [facility] [place] [address] PCP - General Nurse Practitioner 08/20/23
--- OUTSIDE RECORDS SUMMARY | 2024-10-23 10:27 | XMS_ITS | Referral Summary ---
Author Organization [facility] [address] Address [address] [place] [address] Care Team Providers Care Owner [employer] Name Role Phone Linette Roman NP Primary Care Provider [phone] Allergies Active Allergy Reactions Criticality Noted Date [...] on file Legal Sex Female 5:16 PM RN OBSERVATION Gender Identity Not on file Sexual Orientation [...] Plan of Treatment Not on file Insurance [facility] HMO/PPO Address: [address] [address] [place] [address] [facility] Care Teams Owner [employer] Relationship Specialty Start Date End Date Linette Roman NP [facility] [place] [address] PCP - General Nurse Practitioner 08/20/23
--- OUTSIDE RECORDS SUMMARY | 2024-10-23 10:27 | XMS_ITS | Clinical Summary ---
Author Organization [facility] Address [address] [place] [address] Care Team Providers Care Room Service Food Server Name Role Phone Linette Roman NP Primary Care Provider [phone] Allergies Active Allergy Reactions Criticality Noted Date [...] Problem Noted Date Diagnosed Date Gestational diabetes ([facility]) 11/11/2019 Visit for preventive health examination [...] (10/30/2018): Overview: bx not clear 11/2013 at [facility] but treated as psoriasis Anxiety and depression 05/16/2013 Overview (10/30/2018): Overview: Was on Lexapro for 4 years. Stopped in May 2016. Lamar well. Nervous now as school is beginning. [...] OCP starting 05/2012 Social phobia 05/14/2012 Immunizations Immunization Administration Dates Next Due Dt/Diptheria Tetanus 11/11/2007 [...] Sex Assigned at Female 06/02/2024 1:46 AM RETENTION MANAGER Legal Sex Female 2:21 PM CDT [...] 7:24 PM CDT Height 160 cm (5' 3) 06/24/2024 7:24 PM CDT Body Mass Index [...] HPV 07/20/2023 COVID-19 Vaccine ( season) 2023 PHQ-2 (Physician [place]) 04/16/2024 DTaP, Tdap and Td Vaccines (7 [...] 5 Years) and At-Risk Patients (6 to 49 Years) Aged Out No longer eligible based on patient's age to complete this topic RSV Immunizations Under 20 Months Aged Out No longer eligible based on patient's age to complete this topic Procedures Procedure Name Priority Date/Time Associated Diagnosis Comments CYTOPATH CERV/VAG THIN LAYER Routine 12/26/2019 8:00 AM CDT HEPATITIS C ANTIBODY Routine 04/02/2019 10:10 AM RETENTION MANAGER Encounter for supervision of normal , unspecified, unspecified trimester ([facility]) from Last 3 Months or Most Recently Relevant to Health Maintenance Results * Cytopath Cerv/Vag Thin Layer (12/26/2019 8:00 AM CDT) THIN PREP PAP [facility] [address] [place] [address] Department of Pathology Pathology Report CERVICAL/VAGINAL PAP SMEAR REPORT Name: MARIA R BLAIR Age: 4 1995 (Age: 24) Location: [facility] Sex: F Collected Date: 12/26/2019 Hospital #: [id number] Date Received: 12/30/2019 Date Reported: 12/31/2019 Provider: LUIS DANIEL BURLESON MD INTERPRETATION CERVICAL/ENDOCERVI JAMILAH: SATISFACTORY FOR EVALUATION. ENDOCERVICAL/TRANS FORMATION ZONE COMPONENT PRESENT. NEGATIVE FOR INTRAEPITHELIAL LESION OR MALIGNANCY. Electronically Signed Out By DONTRELL Rodriguez (ASCP) CLINICAL HISTORY Z12.4 PAP AND SILK SCREEN CUTTER SURGICAL HISTORY-UNKNOWN ThinPrep Pap Test with HR [...] is not effective in detecting cervical adenocarcinoma. [facility] 12/26/2019 8:00 AM CDT 12/30/2019 8:00 AM CDT Comment:CERVICAL/ENDOCERVICA L us Luis Daniel Burleson MD PATHOLOGY/CYTOLOGY ORDERA BLES Final Result [facility] [address] [place] [address], * HEPATITIS C ANTIBODY (04/02/2019 10:10 AM RETENTION MANAGER) HEPATITIS C AB NON-REACTI VE NON-REACT JING 04/03/2019 12:[address] [facility] Comment: ANTIBODIES TO HCV NOT DETECTED. DOES NOT EXCLUDE THE POSSIBILITY OF EXPOSURE TO HCV. 04/02/2019 10:1 0 AM RETENTION MANAGER us Luis Daniel Burleson MD LABORATORY Final Res ult [facility] [address] [place] [address], [id number] from Last 3 Months or Most Recently Relevant to Health [place] [address] [facility] [address] [place] [phone] Advance Directives * Full Code (Latest Code Status on File) Date Activated Date Inactivated Comments 11/11/2019 6:18 AM 11/12/2019 3:34 AM Care Teams Room Service Food Server Relationship Specialty Start Date End Date Linette Roman NP [address] [place] [address] PCP - General NURSE PRACTITIONER 06/02/24
--- NOTE | 2024-10-23 10:28 | ECG_ITS ---
Test Date: 2024-10-23 10:31:00 Measurements Intervals [place] Rate: 86 P: 47 NC: 121 QRS: 44 QRSD: 73 T: 26 QT: 347 QTc: 417 Interpretive Statements SINUS RHYTHM NONSPECIFIC T-WAVE ABNORMALITY No previous ECG available for comparison Electronically Signed On 10-23-2024 13:14:00 CDT by Eb Edge M.D.
[2024-10-23 10:43] VITALS: BP 128/90; PULSE 94; RESP 18; O2SAT 99
[2024-10-23 11:32] LABS: Add Urine Microscopic? NO; Appearance Urine Clear (Clear); Glucose Urine UA Negative (Negative); Leukocyte Esterase Ur Negative LEU/UL (Negative); Nitrate Urine Negative (Negative); Specific Grav Ur 1.018 (1.001-1.035)
[2024-10-23 11:34] LABS: BEDSIDEPREGUCG Negative (Negative)
[2024-10-23 11:47] LABS: Hematocrit 42.0 % (37.0-47.0); Hemoglobin 13.7 g/dL (12.0-15.0); Immature Granulocyte Percent A 0.5 % (0-0.5); Lymphocytes Absolute Auto 1.38 K/mm3 (0.9-3.2); Mean Corpuscular HGB Conc 32.6 g/dl (32-36); Mean Corpuscular Hemoglobin 29.3 pg (26-34); Mean Corpuscular Volume 89.7 fl (80-100); Nucleated Red Blood Cells Absolute Auto 0.000 K/mm3 (0.0-0.012); Nucleated Red Blood Cells Perc 0.0 % (0.0-0.2); Platelet Count Result 282 k/mm3 (150-375); Red Blood Count 4.68 M/mm3 (4.2-5.4); White Blood Count 8.5 K/mm3 (4.5-10.0)
--- OUTSIDE RECORDS SUMMARY | 2024-10-23 12:06 | XMS_ITS | Referral Summary ---
Author Organization [facility] [address] Address [address] [place] [address] Care Team Providers Care Core Dipper Name Role Phone Linette Roman NP Primary Care Provider [phone] Allergies Active Allergy Reactions Criticality Noted Date [...] on file Legal Sex Female 5:16 PM GROCERY STOCK CLERK Gender Identity Not on file Sexual Orientation [...] Plan of Treatment Not on file Insurance [facility] H[facility]/PPO Address: [address] [address] [place] [address] [facility] Care Teams Core Dipper Relationship Specialty Start Date End Date Linette Roman NP [facility] [place] [address] PCP - General Nurse Practitioner 08/20/23
--- OUTSIDE RECORDS SUMMARY | 2024-10-23 12:06 | XMS_ITS | Clinical Summary ---
Author Organization [facility] [place] [address] Address [address] [place] [address] Care Team Providers Care Operations Manager Name Role Phone Linette Roman NP Primary Care Provider [phone] Allergies Active Allergy Reactions Criticality Noted Date [...] on file Legal Sex Female 5:16 PM FORENSIC IDENTIFICATION SPECIALIST Gender Identity Not on file Sexual Orientation [...] patient's age to complete this topic Insurance [facility] [place] [address] [place] [address] Care Teams Operations Manager Relationship Specialty Start Date End Date Linette Roman NP [facility] [place] [address] PCP - General Nurse Practitioner 08/20/23
[2024-10-23 12:08] LABS: Alanine Aminotransferase 41 U/L (6-35); Albumin Level 4.3 g/dL (3.5-5.1); Alkaline Phosphatase 67 U/L (38-126); Anion Gap 8 mmol/L (4-12); Aspartate Amino Transferase 58 U/L (14-36); Bilirubin,Total 0.4 mg/dL (0.2-1.3); Blood Urea Nitrogen 11 mg/dL (7-17); Calcium 9.5 mg/dL (8.4-10.2); Carbon Dioxide 27 mmol/L (22-30); Chloride 105 mmol/L (98-107); Estimated CRCL calculation 79 ml/min; Estimated Glomerular Filt Rate > 60; Glucose 114 mg/dL (65-110); Lipase 523 U/L (23-300); Potassium 3.7 mmol/L (3.4-5.0); Sodium 140 mmol/L (137-145); Total Protein 7.3 g/dL (6.3-8.2)
[2024-10-23] MEDS: MAG HYDROX/AL HYDROX/SIMETH 30 ML UDC PO (12:24)
[2024-10-23] MEDS: FAMOTIDINE 20 MG/2 ML VIAL IV PUSH (12:24)
[2024-10-23] MEDS: HYDROmorphone HCL INJ (*CRX) 2 MG/ML VIAL 0.5 MG IV PUSH ×2 (12:24→14:42)
--- NOTE | 2024-10-23 12:55 | ED.GENADULT ---
HPI - General Adult General Chief complaint: Abdominal Pain Stated complaint: abd pain Time Seen by Provider: 10/23/24 12:01 History of Present Illness HPI narrative: A 29-year-old female with history of cholecystectomy in May of this year presenting with epigastric pain. Patient states that she ate breakfast this morning and 30 minutes later developed a burning pain in the epigastric area radiating to her back. Is initially 10 out 10 intensity. She took some Tums and is now resolved to a 6/10. She says this feels similar to when her gallbladder was inflamed. There is no exacerbating alleviating factors. Patient has significant GI history including peptic ulcer disease hiatal hernia and has seen a feeling esophagitis. She is no longer on a PPI or Pepcid. She has had multiple scopes in the past. Patient states she is under significant stress as her brother was in a motorcycle accident last week. Related Data Home Medications ?Medication ?Instructions ?Recorded ?Confirmed ?Last Taken ?Type ondansetron 4 mg disintegrating 4 mg PO Q8H 06/09/24 10/06/24 06/10/24 History tablet Allergies Allergy/AdvReac Type Severity Reaction Status Date / Time ciprofloxacin (From Cipro) Allergy Intermediate Rash Verified 10/23/24 10:25 Sulfa (Sulfonamide Allergy Hives Verified 10/23/24 10:25 Antibiotics) metoclopramide (From Reglan) AdvReac Shakiness Verified 10/23/24 10:25 PMFSH Past Medical History Medical History Gestational diabetes insipidus IUP (intrauterine ), incidental Dysphagia History of esophageal dilatation Esophageal dilatation Eosinophilic esophagitis Surgical History Surgical History Hx laparoscopic cholecystectomy 06/10/[address] Shahid Family History Family History Grandparent Diabetes mellitus Hypertension Uterine cancer Mother Psoriatic arthritis Other Depression Social History Social History Smoking status: Never smoker Alcohol intake: current Alcohol use details: social Substance use: never Do You Feel Safe in your Home?: Yes Lack of Transportation: No Lack of Food: Never True Current Housing: I Have Housing Concerned About Future Housing: No Difficulty Paying Gas/Electric Bills: No Difficulty Paying for Meds: No Currently Unemployed: No Education: Bachelor's Degree Difficulty w/ Childcare or Family Care: No Living arrangements: with family Gender identity (if verbalized by the patient): Female Spiritual care concerns: No Agree to blood products: Yes Exam Narrative: APPEARANCE: No apparent distress. Head: atraumatic. EYES: EOMI, NOSE: Atraumatic NECK: Trachea midline RESPIRATORY: No increased rate of breathing CTAB CARDIOVASCULAR: RRR, no peripheral edema ABDOMINAL: Non-distended soft nontender no guarding rebound, no CVA tenderness MUSCULOSKELETAl: No obvious deformities NEURO: Alert. Moving 4/4 extremities SKIN:: Warm, dry. Normal color PSYCHIATRIC: Normal affect Course Vital Signs Vital signs: Vital Signs Temperature 97.6 F 10/23/24 10:26 Pulse Rate 103 H 10/23/24 10:26 Respiratory Rate 16 10/23/24 10:26 Blood Pressure 149/95 H 10/23/24 10:26 Pulse Oximetry 100 10/23/24 10:26 Oxygen Delivery Room Air 10/23/24 10:26 Temperature 97.6 F 10/23/24 10:26 Pulse Rate 94 10/23/24 10:43 Respiratory Rate 18 10/23/24 10:43 Blood Pressure 128/90 10/23/24 10:43 Pulse Oximetry 99 10/23/24 10:43 Oxygen Delivery Room Air 10/23/24 10:26 Medical Decision Making [facility] Narrative Medical decision making narrative: -Course: 29-year-old female presenting with epigastric pain. Patient given pain control fluids and antiemetics. Workup significant for Lipase elevated at 523, CT abdomen pelvis showed thickening of the distal esophagus as well as loss of fatty infiltration of the pancreas which could be a sign of early pancreatitis. Liver enzymes slightly outside of normal range. Early pancreatitis is possibility peptic ulcer disease or GERD a more likely cause of her symptoms. She has been off her PPI and ant-acid for quite some time. On re-evaluation patient is still complaining of significant pain. She is still nauseous. Given another round of pain medication. We discussed admission versus discharge the patient is uncomfortable going home. She will be placed in observation for symptom control. -DDX includes but is not limited to: Peptic ulcer disease, stress ulcer, gastritis, retained cholelithiasis, pancreatitis, colitis -Co-morbidities complicating care: Hiatal hernia, peptic ulcer disease, Vital Signs Vital Signs: Vital Signs Temperature 97.6 F 10/23/24 10:26 Pulse Rate 103 H 10/23/24 10:26 Respiratory Rate 16 10/23/24 10:26 Blood Pressure 149/95 H 10/23/24 10:26 Pulse Oximetry 100 10/23/24 10:26 Oxygen Delivery Room Air 10/23/24 10:26 Temperature 97.6 F 10/23/24 10:26 Pulse Rate 94 10/23/24 10:43 Respiratory Rate 18 10/23/24 10:43 Blood Pressure 128/90 10/23/24 10:43 Pulse Oximetry 99 10/23/24 10:43 Oxygen Delivery Room Air 10/23/24 10:26 Lab Data 10/23/24 11:42 10/23/24 11:42 Labs: Lab Results 10/23/24 10/23/24 10/23/24 Range/Units 10:41 11:10 11:42 WBC 8.5 (4.5-10.0) K/mm3 RBC 4.68 (4.2-5.4) M/mm3 Hgb 13.7 (12.0-15.0) g/dL Hct 42.0 (37.0-47.0) % MCV 89.7 (80-100) fl MCH 29.3 (26-34) pg MCHC 32.6 (32-36) g/dl RDW 12.7 (11.5-14.5) % Plt Count 282 (150-375) k/mm3 MPV 10.2 (7.4-10.4) fl Immature Gran % (Auto) 0.5 (0-0.5) % Neut % (Auto) 66.8 (45.5-73.1) % Lymph % (Auto) 16.3 L (18.3-44.2) % Reagan % (Auto) 5.9 (2.6-8.5) % Eos % (Auto) 9.7 H (0-4.4) % Baso % (Auto) 0.8 (0.2-1.2) % Lymph # (Auto) 1.38 (0.9-3.2) K/mm3 Reagan # (Auto) 0.5 (0.1-0.6) K/mm3 Eos # (Auto) 0.8 H (0-0.3) K/mm3 Baso # (Auto) 0.1 (0.0-0.1) K/mm3 Abs Immat Gran (auto) 0.04 H (0.00-0.031) K/mm3 Absolute Neuts (auto) 5.7 (1.3-6.7) K/mm3 Absolute Nucleated RBC 0.000 (0.0-0.012) K/mm3 Nucleated RBC % 0.0 (0.0-0.2) % Sodium 140 (137-145) mmol/L Potassium 3.7 (3.4-5.0) mmol/L Chloride 105 (98-107) mmol/L Carbon Dioxide 27 (22-30) mmol/L Anion Gap 8 (4-12) mmol/L BUN 11 (7-17) mg/dL Creatinine 0.85 (0.7-1.0) mg/dL Estim Creat Clear Calc 79 ml/min Estimated GFR > 60 (59 - ) Glucose 114 H (65-110) mg/dL Calcium 9.5 (8.4-10.2) mg/dL Total Bilirubin 0.4 (0.2-1.3) mg/dL AST 58 H (14-36) U/L ALT 41 H (6-35) U/L Alkaline Phosphatase 67 (38-126) U/L Total Protein 7.3 (6.3-8.2) g/dL Albumin 4.3 (3.5-5.1) g/dL Lipase 523 H (23-300) U/L Urine Color Yellow (Yellow) Urine Appearance Clear (Clear) Urine pH 6.0 (5.0-9.0) Ur Specific [place] 1.018 (1.001-1.035) Urine Protein Negative (Negative) mg/dL Urine Glucose (UA) Negative (Negative) mg/dL Urine Ketones Negative (Negative) mg/dL Ur Blood (Man) Negative (Negative) Urine Nitrate Negative (Negative) Urine Bilirubin Negative (Negative) Urine Urobilinogen 1.0 (<2.0) mg/dL Leukocyte Esterase Rfl Negative (Negative) RAMA/UL POC Urine HCG, Qual Negative (Negative) Discharge Plan Discharge Clinical Impression: Epigastric abdominal pain Patient Disposition: Still a Patient Condition: Stable Patient Language: Andorran Prescriptions: No Action alprazolam [Xanax] 0.25 mg tablet 0.25 mg PO DAILY PRN (Reason: panic attack(s)) Qty: 30 0RF ondansetron 4 mg tablet,disintegrating 4 mg PO Q8H methylprednisolone [Medrol (Castillo)] 4 mg tablets,dose pack See Rx Instructions PO PER PKG DIR Qty: 21 0RF Rx Instructions: PO PER PKG DIR fluoxetine 10 mg capsule See Rx Instructions .ROUTE .COMPLEX Qty: 90 0RF Dose Instruction: TAKE 1 CAPSULE BY MOUTH EVERY EVENING Rx Instructions: TAKE 1 CAPSULE BY MOUTH EVERY EVENING Follow-up/Referrals: Linette Roman APRN [Primary Care Provider] -
[2024-10-23 14:29] VITALS: BP 116/80; PULSE 108; RESP 18; O2SAT 100
[2024-10-23] MEDS: LACTATED RINGERS 1,000 ML 999 ML IV CONT (14:42)
[2024-10-23] MEDS: PROCHLORPERAZINE EDISYLATE 10 MG/2 ML VIAL IM (15:10)
--- NOTE | 2024-10-23 15:41 | P.HP_ITS ---
H&P: HPI History of Present Illness Date/Time: 10/23/24 15:41 Chief Complaint: Epigastric pain Narrative: 29-year-old female history of peptic ulcer disease, hiatal hernia, and esophagitis presents the hospital with epigastric pain. She said back in May she had her gallbladder removed. She states that this feels like a gallbladder attack. She has severe epigastric pain after eating meals. Patient complains of nausea vomiting. She denies fevers chills or diarrhea. Patient states that she has a huge GI history with several scopes, and structures. Lab work shows AST of 58, ALT of 41, lipase of 523, UA noninfective. CT of the abdomen pelvis shows loss of fatty infiltration of the pancreas, which may be seen in early pancreatitis for which clinical correlation is needed and circumferential mural thickening within the distal esophagus. EKG shows sinus rhythm nonspecific T-wave abnormalities. Review of Systems Review of Systems: 12 systems were reviewed and are negativ e except for as per HPI. [facility] Past Medical History Medical History Gestational diabetes insipidus IUP (intrauterine ), incidental Dysphagia History of esophageal dilatation Esophageal dilatation Eosinophilic esophagitis Surgical History Surgical History Hx laparoscopic cholecystectomy 06/10/[address] Shahid Family History Family History Grandparent Diabetes mellitus Hypertension Uterine cancer Mother Psoriatic arthritis Other Depression Social History Social History Smoking status: Never smoker Alcohol intake: current Drinks per week: 2 Alcohol use details: social Substance use: never Substance use type: does not use Do You Feel Safe in your Home?: Yes Lack of Transportation: No Lack of Food: Never True Current Housing: I Have Housing Concerned About Future Housing: No Difficulty Paying Gas/Electric Bills: No Difficulty Paying for Meds: No Currently Unemployed: No Education: Bachelor's Degree Difficulty w/ Childcare or Family Care: No Living arrangements: with family Gender identity (if verbalized by the patient): Female Spiritual care concerns: No Agree to blood products: Yes Meds Home Medications and Allergies Home Medications ?Medication ?Instructions ?Recorded ?Confirmed ?Type alprazolam 0.25 mg tablet (Xanax) 0.25 mg PO DAILY PRN panic 06/25/24 10/23/24 Rx attack(s) #30 tabs fluoxetine 10 mg capsule See Rx Instructions .Route 07/30/24 10/23/24 Rx .COMPLEX #90 caps Allergies Allergy/AdvReac Type Severity Reaction Status Date / Time ciprofloxacin (From Cipro) Allergy Intermediate Rash Verified 10/23/24 10:25 Sulfa (Sulfonamide Allergy Hives Verified 10/23/24 10:25 Antibiotics) metoclopramide (From Reglan) AdvReac Shakiness Verified 10/23/24 10:25 Vital Signs Vital Signs - 24 hr 10/23/24 10:26 10/23/24 10:43 10/23/24 14:29 Temperature 97.6 F Pulse Rate 103 H 94 108 H Respiratory Rate 16 18 18 Blood Pressure 149/95 H 128/90 116/80 Pulse Oximetry 100 99 100 Oxygen Delivery Room Air Exam Narrative: General: well appearing, appears stated age. HEENT: normocephalic, atraumatic. Mucous membranes moist. EOMI, PERRLA, bilateral sclera anicteric, no conjunctival injection. Neck supple without JVD, lymphadenopathy, or bruit. Respiratory: clear to ascultation bilaterally. No rales/rhonic/wheezes. Cardiovascular: Regular rate and rhythm, normal S1-S2 upon ascultation. No murmurs, rubs, or clicks. PMI is nondisplaced, capillary refill less than 3 second. Abdomen: Soft, round, no pulsatile masses, nondistended and nontender. No rebound, no guarding. No CVA tenderness, no hepatosplenomegaly. Bowel sounds present to all four quadrants. No high pitch or tinkling sounds, resonant to percussion. Extremities: No cyanosis, clubbing, or edema present. Pulses are palpable 2/2. Active ROM to all four extremities. Neuro: Alert and orientated x 4. PERRLA. Cranial nerves 2-12 intact without focal deficit. Skin: Warm, dry, and intact, without rash, erythema, or lesion. Psych: pleasant, cooperative, normal speech, normal affect, no hallucinations, no dysarthia H&P: Results Labs Labs: Short CBC 10/23/24 Range/Units 11:42 WBC 8.5 (4.5-10.0) K/mm3 Hgb 13.7 (12.0-15.0) g/dL Hct 42.0 (37.0-47.0) % Plt Count 282 (150-375) k/mm3 BMP 10/23/24 11:42 Sodium 140 Potassium 3.7 Chloride 105 Carbon Dioxide 27 BUN 11 Creatinine 0.85 Glucose 114 H Calcium 9.5 Liver Function 10/23/24 Range/Units 11:42 Total Bilirubin 0.4 (0.2-1.3) mg/dL AST 58 H (14-36) U/L ALT 41 H (6-35) U/L Alkaline Phosphatase 67 (38-126) U/L Albumin 4.3 (3.5-5.1) g/dL Urine 10/23/24 Range/Units 11:10 Urine Color Yellow (Yellow) Urine Appearance Clear (Clear) Urine pH 6.0 (5.0-9.0) Ur Specific [place] 1.018 (1.001-1.035) Urine Protein Negative (Negative) mg/dL Urine Glucose (UA) Negative (Negative) mg/dL Assessment and Plan Assessment and plan (1) Pancreatitis: Code(s): K85.90 - Acute pancreatitis without necrosis or infection, unspecified Status: Acute Assessment and Plan: 1 L LR bolus given in ED LR at 2 per hour Lipase in a.m. Pain management (2) Esophagitis: Code(s): K20.90 - Esophagitis, unspecified without bleeding Status: Acute Assessment and Plan: Carafate GI cocktail Pepcid (3) Epigastric abdominal pain: Code(s): R10.13 - Epigastric pain Status: Acute Assessment and Plan: Secondary to above (4) Anxiety: Code(s): F41.9 - Anxiety disorder, unspecified Status: Acute Assessment and Plan: Continue home Prozac and Xanax Quality VTE Prophylaxis VTE prophylaxis: mechanical ordered Hospitalist MIPS Advance Care Plan I have confirmed that the patient's Advanced Care Plan is present, code status is documented, or surrogate decision maker is listed in patient medical record.: Yes Medication Reconciliation I have utilized all available resources to obtain, update and review the patients current medications (includes all prescriptions, OTC, herbals, cannabis, and nutritional supplements).: Yes
[2024-10-23 16:00] VITALS: BP 103/52; PULSE 66; RESP 18; TEMP 36.6; O2SAT 98
[2024-10-23] MEDS: LACTATED RINGERS 1,000 ML 200 ML IV CONT (16:31)
[2024-10-23] MEDS: SUCRALFATE SUSP 100 MG/ML 10 ML UDC 1000 MG PO ×2 (16:37→21:03)
[2024-10-23 20:51] VITALS: BP 106/60; PULSE 73; RESP 16; TEMP 36.2; O2SAT 96
[2024-10-23 23:21] VITALS: O2SAT 96
[2024-10-24 05:16] LABS: Lipase 96 U/L (23-300)
[2024-10-24] MEDS: SUCRALFATE SUSP 100 MG/ML 10 ML UDC 1000 MG PO ×2 (05:53→12:07)
[2024-10-24 06:00] VITALS: BP 105/57; PULSE 82; RESP 16; TEMP 36.4; O2SAT 97
[2024-10-24 08:27] LABS: Hematocrit 39.4 % (37.0-47.0); Hemoglobin 12.5 g/dL (12.0-15.0); Immature Granulocyte Percent A 0.3 % (0-0.5); Lymphocytes Absolute Auto 1.72 K/mm3 (0.9-3.2); Mean Corpuscular HGB Conc 31.7 g/dl (32-36); Mean Corpuscular Hemoglobin 29.0 pg (26-34); Mean Corpuscular Volume 91.4 fl (80-100); Nucleated Red Blood Cells Absolute Auto 0.000 K/mm3 (0.0-0.012); Nucleated Red Blood Cells Perc 0.0 % (0.0-0.2); Platelet Count Result 256 k/mm3 (150-375); Red Blood Count 4.31 M/mm3 (4.2-5.4); White Blood Count 6.3 K/mm3 (4.5-10.0)
[2024-10-24 09:04] LABS: Alanine Aminotransferase 40 U/L (6-35); Albumin Level 3.4 g/dL (3.5-5.1); Alkaline Phosphatase 63 U/L (38-126); Anion Gap 4 mmol/L (4-12); Aspartate Amino Transferase 31 U/L (14-36); Bilirubin,Total 0.5 mg/dL (0.2-1.3); Blood Urea Nitrogen 10 mg/dL (7-17); Calcium 8.8 mg/dL (8.4-10.2); Carbon Dioxide 27 mmol/L (22-30); Chloride 108 mmol/L (98-107); Estimated CRCL calculation 83 ml/min; Estimated Glomerular Filt Rate > 60; Glucose 91 mg/dL (65-110); Potassium 4.1 mmol/L (3.4-5.0); Sodium 139 mmol/L (137-145); Total Protein 5.9 g/dL (6.3-8.2)
[2024-10-24 14:00] VITALS: BP 112/69; PULSE 93; RESP 18; TEMP 36.4; O2SAT 99
--- NOTE | 2024-10-24 14:31 | P.DS_ITS ---
DS: Admitting Diagnosis Discharge Date 10/24/2024 Admitting Diagnosis Epigastric pain DS: Discharge Diagnosis Discharge Diagnosis (1) Esophagitis: Code(s): K20.90 - Esophagitis, unspecified without bleeding Status: Acute (2) Pancreatitis: Code(s): K85.90 - Acute pancreatitis without necrosis or infection, unspecified Status: Acute DS: Summary Hospital Course Hospital Course: 29-year-old female history of peptic ulcer disease, hiatal hernia, and esophagitis presents the hospital with epigastric pain. She said back in May she had her gallbladder removed. She states that this feels like a gallbladder attack. She has severe epigastric pain after eating meals. Patient complains of nausea vomiting. She denies fevers chills or diarrhea. Patient states that she has a huge GI history with several scopes, and structures. Lab work shows AST of 58, ALT of 41, lipase of 523, UA noninfective. CT of the abdomen pelvis shows loss of fatty infiltration of the pancreas, which may be seen in early pancreatitis for which clinical correlation is needed and circumferential mural thickening within the distal esophagus. EKG shows sinus rhythm nonspecific T-wave abnormalities. Patient was made NPO and IVF, PRN, Sucralfate, pain control and today patient is pain free. Tolerated diet today and patient dishcarge on Protonix x 1 month F/u with PCP in 3-5 days Time Spent with Patient Time attestation: Total time spent providing and/or coordinating discharge services: DS: Data Data Completed and Pending Labs on day of discharge: Labs from last 24 hours 10/24/24 04:54 WBC 6.3 RBC 4.31 Hgb 12.5 Hct 39.4 MCV 91.4 MCH 29.0 MCHC 31.7 L RDW 12.7 Plt Count 256 MPV 10.3 Immature Gran % (Auto) 0.3 Neut % (Auto) 51.9 Lymph % (Auto) 27.1 [place] % (Auto) 6.5 Eos % (Auto) 12.9 H Baso % (Auto) 1.3 H Lymph # (Auto) 1.72 [place] # (Auto) 0.4 Eos # (Auto) 0.8 H Baso # (Auto) 0.1 Abs Immat Gran (auto) 0.02 Absolute Neuts (auto) 3.3 Absolute Nucleated RBC 0.000 Nucleated RBC % 0.0 Sodium 139 Potassium 4.1 Chloride 108 H Carbon Dioxide 27 Anion Gap 4 BUN 10 Creatinine 0.84 Estim Creat Clear Calc 83 Estimated GFR > 60 Glucose 91 Calcium 8.8 Total Bilirubin 0.5 AST 31 ALT 40 H Alkaline Phosphatase 63 Total Protein 5.9 L Albumin 3.4 L Lipase 96 Discharge Plan Discharge Attending physician on discharge: Ronald Guerrero Discharging Clinician: Ronald Guerrero Anticipated Discharge Date/Time: 10/24/24 14:29 Patient Disposition: Home Activity: as tolerated Diet: as tolerated and regular Patient Instructions: Antibiotic Form Patient Language: Solomon Islander Stand Alone Forms: General Discharge Information Follow-up/Referrals: Linette Roman APRN [Primary Care Provider] - (F/u with PCP in 3-5 days ) Discharge Medications: New pantoprazole [Protonix] 40 mg tablet,delayed release (DR/EC) 40 mg PO BID 30 Days Qty: 60 0RF Continued alprazolam [Xanax] 0.25 mg tablet 0.25 mg PO DAILY PRN (Reason: panic attack(s)) Qty: 30 0RF fluoxetine 10 mg capsule See Rx Instructions .ROUTE .COMPLEX Qty: 90 0RF Dose Instruction: TAKE 1 CAPSULE BY MOUTH EVERY EVENING Rx Instructions: TAKE 1 CAPSULE BY MOUTH EVERY EVENING Date of admission: 10/23/24 14:29 Primary Care Provider: Linette Roman Admitting Provider: Ophelia De Attending physician on admission: Ophelia De Condition: Stable
== END 2024-10-24 14:46 | disposition home or self-care (01) ==
LOC: ANHED 14:29 → ANH2MED 10-24 14:30
PROVIDERS: Emergency Medicine; Nurse Practitioner Gerontology; Admitting Provider General Practice; Emergency Provider Emergency Medicine; PCP Nurse Practitioner Adult Health; Visit Provider Internal Medicine
DX: K20.90 Esophagitis, unspecified without bleeding (principal); K85.90 Acute pancreatitis without necrosis or infection, unspecified; K27.9 Peptic ulcer, site unspecified, unspecified as acute or chronic, without hemorrhage or perforation; F41.9 Anxiety disorder, unspecified
CPT/HCPCS: 36415; 74177; 80053; 81003; 81025; 83690; 85025; 93005; 96361; 96372; 96374; 96375; 96376; 99285; A9270; G0378; J0780; J1171; J1200; J7120; Q9967

== ENCOUNTER 2024-12-08 08:01 | Outpatient (CLI) | payer BC, SELFPAY ==
--- OUTSIDE RECORDS SUMMARY | 2014-11-11 05:29 | XMS_ITS | Continuity of Care Document ---
Author Organization [facility] Address [address] [place] [address] Phone Care Team Providers Care Hot Dip Plater Name Role Phone Len Reese MD Unavailable Unavailable Advance Directives Directive Yes / No Effective Date File Name No Information Encounters Encounter Description Practice Location Reason(s) For Visit Diagnoses Date Provider Providers Copied on Encounter [facility], [address], [place], [place], [id number], [place] tel:[phone] [facility] No Information Mary Ann Harrington. [address] [facility] [place], [id number] , [place]. tel:[phone] Family History Family Member Type Diagnosis Age At Onset No Information Payers Payer name Insurance type Covered republican ID Authoriza tion(s) No Information Social History Type Description Quantity Date Captured Comments Alcohol Use Details Unknown Caffeine Use Details Unknown Tobacco Use Status No Information Smoking Status No Information Sex Female Chief Complaint And Reason For Visit No Information Reason For Referral Reason For Referral No Information History Of Present Illness Encounter Date Complaint History Of Prese nt Illness No Information Functional Status Date Functional Assessmen t No Information Instructions Date Instruction Additional Infor mation No Information Assessments Type Assessment Date No Information Patient Care Teams Name Effective Dates (start - stop) Status Members No Information
--- OUTSIDE RECORDS SUMMARY | 2018-10-09 11:32 | XMS_ITS | Continuity of Care Document ---
Author Organization [facility], [facility] Address [address] [place] [phone] Phone Care Team Providers Care Battery Tester Name Role Phone Heron SCHWARTZ, Verenice Unavailable Unavailable Allergies, Adverse Reactions, Alerts Substance Reaction Status Criticality Sulfa (Sulfonamide Antibiotics) Active No Information Medications Medication Instructions Dosage Effective Dates (start - stop) Status Comments Cher Allergy 60 mg tablet take 1 tablet by oral route 2 times every day 60 MG - Active Procedures Procedure Date Laser Vision Correction Screening REFRACTION EYE EXAM, NEW PATIENT Advance Directives Directive Yes / No Effective Date File Name No Information Encounters Encounter Description Practice Location Reason(s) For Visit Diagnoses Date Provider Providers Copied on Encounter [facility], [address] [place] [address], [id number], tel:[phone] [facility] No Information Heron Caldera. [address] [place] [address], [id number], [place]. tel:[phone], [id number], [place] tel:[phone] [facility]- No Information Heron Caldera. [address] [place] [address], [id number], [place]. tel:[phone] [facility], [address] [place] [address], [id number], [place] tel:[phone] [facility] decreased vision (chief complaint) Myopia, bilateral Monica Cueva. [address], [place], [place], [id number], [place]. tel:[phone] Family History Family Member Type Diagnosis Age At Onset Problem (finding) No family history of Gl aucoma Problem (finding) No family history of Ca taracts Problem (finding) No family history of Di abetes mellitus Problem (finding) No family history of Hy pertension Problem (finding) No family hist ory of Macular degeneration Payers Payer name Insurance type Covered libertarian ID Authoriza tion(s) No Information Social History Type Description Quantity Date Captured Comments Alcohol Use Details Unknown Caffeine Use Details Unknown Tobacco Use Status No Information Smoking Status No Information Sex Female Chief Complaint And Reason For Visit No Information Reason For Referral Reason For Referral No Information History Of Present Illness Encounter Date Complaint History Of Prese nt Illness decreased vision The 23 Year old female presents for evaluation decreased vision in the right eye and left eye since last exam. It affects distance vision OU c gls. Pt states NVA is good and stable OU c gls. Pt is interested in LVS surgery. The patient denies pain or discomfort. No eye meds or OTC AT. Functional Status Date Functional Assessmen t No Information Instructions Date Instruction Additional Infor marcia Per LVC Screening with Giovanni Grant ed to Myopia, bilateral Impression/Plan Related to Myopi a, bilateral Assessments Type Assessment Date No Information Patient Care Teams Name Effective Dates (start - stop) Status Members No Information
--- OUTSIDE RECORDS SUMMARY | 2024-12-08 08:07 | XMS_ITS | Clinical Summary ---
Author Organization [facility] [address] Address [address] [place] [address] Care Team Providers Care Analysis Engineer Name Role Phone Linette Roman NP Primary Care Provider [phone] Allergies Active Allergy Reactions Criticality Noted Date [...] on file Legal Sex Female 5:16 PM LAB ANALYST Gender Identity Not on file Sexual Orientation [...] Screening 1995 Regular Well Visit/Exam 18-64 07/20/2011 HPV Vaccines (1 - 3-dose SCDM series) 2020 Cervical Cancer Screening 12/25/2020 12/26/2019 Influenza Vaccine (#1) 2024 7, 01/29/2016, 12/19/2014 DTaP/Tdap/Td Vaccine (9 - Td or Tdap) 08/26/2029 08/27/2019, 03/09/2015, 11/11/2007, Additional history exists Hepatitis B Screening Completed 05/20/1994 , 1993, 1993 Varicella Vaccines Completed 03/09/2015, 0 12/03/1998, 07/27/1994 Pneumococcal vaccine <65 Aged Out No longer eligible based on patient's age to complete this topic Insurance [facility] [place] [address] [place] [address] Care Teams Analysis Engineer Relationship Specialty Start Date End Date Linette Roman NP [facility] [place] [address] PCP - General Nurse Practitioner 08/20/23
--- OUTSIDE RECORDS SUMMARY | 2024-12-08 08:07 | XMS_ITS | Clinical Summary ---
Author Organization [facility] Address [facility] [place] [address] Care Team Providers Care Drupal Architect Name Role Phone Linette Roman NP Primary Care Provider [phone] Allergies Active Allergy Reactions Criticality Noted Date [...] Problem Noted Date Diagnosed Date Gestational diabetes ([facility]) 11/11/2019 Visit for preventive health [...] (10/30/2018): Overview: bx not clear 11/2013 at [facility] but treated as psoriasis Anxiety and depression 05/16/2013 Overview (10/30/2018): Overview: Was on Lexapro for 4 years. Stopped in May 2016. [place] well. Nervous now as school is beginning. [...] Sex Assigned at Female 06/02/2024 1:46 AM BEATER LEAD Legal Sex Female 2:21 PM CDT Gender [...] Last Done Comments Annual Physical 10/31/2019 10/30/2018 HPV Vaccines (1 - 3-dose SCDM series) 2020 Cervical Cancer Screening Pap Smear (Age 30 to 64) Every 3 Years 12/25/2022 12/26/2019, 12/08/2016 Cervical Cancer Screening Pap with HPV Testing (Age 30 to 64) Every 5 Years 07/20/2023 12/08/2016 Cervical Cancer Screening with HPV 07/20/2023 COVID-19 Vaccine ( season) 2023 PHQ-2 (Physician [place]) 04/16/2024 DTaP, Tdap and Td Vaccines (7 - Td or Tdap) 03/10/2025 03/10/2015, 11/11/2007, 12/03/1998, Additional history exists Hepatitis B Vaccines Completed 05/20/1994, 1993, 1993 Hepatitis C Completed 04/02/2019 Meningococcal B Vaccine Aged Out No l [...] HEPATITIS C ANTIBODY Routine 04/02/2019 10:10 AM BEATER LEAD Encounter for supervision of normal , unspecified, unspecified trimester ([facility]) from Last 3 Months or Most Recently Relevant to Health Maintenance Results * Cytopath Cerv/Vag Thin Layer (12/26/2019 8:00 AM CDT) THIN PREP PAP [facility] [address] [place] [address] Department of Pathology Pathology Report CERVICAL/VAGINAL PAP SMEAR REPORT Name: MARIA R BLAIR Age: 4 1995 (Age: 24) Location: [facility] Sex: F Collected Date: 12/26/2019 Hospital #: [id number] Date Received: 12/30/2019 Date Reported: 12/31/2019 Provider: LUIS DANIEL BURLESON MD INTERPRETATION CERVICAL/ENDOCERVI JAMILAH: SATISFACTORY FOR EVALUATION. ENDOCERVICAL/TRANS FORMATION ZONE COMPONENT PRESENT. NEGATIVE FOR INTRAEPITHELIAL LESION OR MALIGNANCY. Electronically Signed Out By DONTRELL Rodriguez (ASCP) CLINICAL HISTORY Z12.4 PAP AND TELEPHONIC NURSE CASE MANAGER SURGICAL HISTORY-UNKNOWN ThinPrep Pap Test with HR [...] is not effective in detecting cervical adenocarcinoma. [facility] 12/26/2019 8:00 AM CDT 12/30/2019 8:00 AM CDT Comment:CERVICAL/ENDOCERVICA L us Luis Daniel Burleson MD PATHOLOGY/CYTOLOGY ORDERA BLES Final Result [facility] [address] [place] [address], * HEPATITIS C ANTIBODY (04/02/2019 10:10 AM BEATER LEAD) HEPATITIS C AB NON-REACTI VE NON-REACT JING 04/03/2019 12:44 AM BEATER LEAD [facility] Comment: ANTIBODIES TO HCV NOT DETECTED. DOES NOT EXCLUDE THE POSSIBILITY OF EXPOSURE TO HCV. 04/02/2019 10:1 0 AM BEATER LEAD us Luis Daniel Burleson MD LABORATORY Final Res ult [facility] [address] [place] [address], [id number] from Last 3 Months or Most Recently Relevant to [place] [address] [facility] [address] [place] [phone] Advance Directives * Full Code (Latest Code Status on File) Date Activated Date Inactivated Comments 11/11/2019 6:18 AM 11/12/2019 3:34 AM Care Teams Drupal Architect Relationship Specialty Start Date End Date Linette Roman NP [address] [place] [address] PCP - General NURSE PRACTITIONER 06/02/24
[2024-12-08 19:13] LABS: Hematocrit 43.6 % (37.0-47.0); Hemoglobin 13.7 g/dL (12.0-15.0); Mean Corpuscular HGB Conc 31.4 g/dl (32-36); Mean Corpuscular Hemoglobin 29.0 pg (26-34); Mean Corpuscular Volume 92.4 fl (80-100); Platelet Count Result 326 k/mm3 (150-375); Red Blood Count 4.72 M/mm3 (4.2-5.4); White Blood Count 6.7 K/mm3 (4.5-10.0)
[2024-12-08 19:30] LABS: Alanine Aminotransferase 16 U/L (6-35); Albumin Level 4.3 g/dL (3.5-5.1); Alkaline Phosphatase 64 U/L (38-126); Anion Gap 8 mmol/L (4-12); Aspartate Amino Transferase 46 U/L (14-36); Bilirubin,Total 0.5 mg/dL (0.2-1.3); Blood Urea Nitrogen 11 mg/dL (7-17); Calcium 9.4 mg/dL (8.4-10.2); Carbon Dioxide 25 mmol/L (22-30); Chloride 105 mmol/L (98-107); Cholesterol 155 mg/dL (0-200); Estimated Glomerular Filt Rate > 60; Glucose 83 mg/dL (65-110); HDL Direct 43 mg/dL; Potassium 4.4 mmol/L (3.4-5.0); Sodium 138 mmol/L (137-145); Total Protein 7.3 g/dL (6.3-8.2); Triglycerides 79 mg/dL (<150)
[2024-12-08 20:02] LABS: Thyroid Stimulating Hormone 1.080 uIU/mL (0.465-4.680)
== END 2024-12-08 08:02 | disposition home or self-care (01) ==
LOC: ANHBWCLAB 08:02
PROVIDERS: PCP Nurse Practitioner Adult Health; Visit Provider Nurse Practitioner Adult Health
DX: Z00.00 Encounter for general adult medical examination without abnormal findings (principal)
CPT/HCPCS: 36415; 80053; 80061; 84443; 85027

== ENCOUNTER 2025-02-16 00:21 | Day surgery (SDC) | payer BC, SELFPAY ==
[2025-02-04 13:33] VITALS: BMI 29.2
--- OUTSIDE RECORDS SUMMARY | 2025-02-16 00:24 | XMS_ITS | Clinical Summary ---
Author Organization [facility] Address [facility] [place] [address] Care Team Providers Care Elementary Teacher Name Role Phone Linette Roman NP Primary Care Provider [phone] Allergies Active Allergy Reactions Criticality Noted Date [...] Problem Noted Date Diagnosed Date Gestational diabetes 11/11/2019 Visit for preventive health examination 12/09/19 [...] (10/30/2018): Overview: bx not clear 11/2013 at [facility] but treated as psoriasis Anxiety and depression 05/16/2013 Overview (10/30/2018): Overview: Was on Lexapro for 4 years. Stopped in May 2016. [place] well. Nervous now as school is beginning. [...] Sex Assigned at Female 06/02/2024 1:46 AM ENTRY WRITER Legal Sex Female 2:21 PM CDT Gender [...] 12/08/2016 Cervical Cancer Screening with HPV 07/20/2023 PHQ-2 (Physician [place]) 04/16/2024 COVID-19 Vaccine ( season) 2024 Influenza Adult (#1) 2025 02/09/2020, 02/09/2019, 12/15/2016, Additional history exists DTaP, Tdap and Td Vaccines (7 - Td or Tdap) 03/10/2025 03/10/2015, 11/11/2007, 12/03/1998, Additional history exists Hepatitis B Vaccines Completed 05/20/1994, 1993, 1993 Hepatitis C Completed 04/02/2019 Hepatitis A Vaccines Aged Out No long er eligible based on patient's age to complete [...] HEPATITIS C ANTIBODY Routine 04/02/2019 10:10 AM ENTRY WRITER Encounter for supervision of normal , unspecified, unspecified trimester ([facility]) from Last 3 Months or Most Recently Relevant to Health Maintenance Results * Cytopath Cerv/Vag Thin Layer (12/26/2019 8:00 AM CDT) THIN PREP PAP [facility] [address] [place] [address] Department of Pathology Pathology Report CERVICAL/VAGINAL PAP SMEAR REPORT Name: MARIA R BLAIR Age: 4 1995 (Age: 24) Location: [facility] Sex: F Collected Date: 12/26/2019 [facility] #: [id number] Date Received: 12/30/2019 Date Reported: 12/31/2019 Provider: LUIS DANIEL BURLESON MD INTERPRETATION CERVICAL/ENDOCERVI JAMILAH: SATISFACTORY FOR EVALUATION. ENDOCERVICAL/TRANS FORMATION ZONE COMPONENT PRESENT. NEGATIVE FOR INTRAEPITHELIAL LESION OR MALIGNANCY. Electronically Signed Out By DONTRELL Rodriguez (ASCP) CLINICAL HISTORY Z12.4 PAP AND INFORMATION RECEPTIONIST SURGICAL HISTORY-UNKNOWN ThinPrep Pap Test with HR [...] is not effective in detecting cervical adenocarcinoma. [facility] 12/26/2019 8:00 AM CDT 12/30/2019 8:00 AM CDT Comment:CERVICAL/ENDOCERVICA L us Luis Daniel Burleson MD PATHOLOGY/CYTOLOGY ORDERA BLES Final Result [facility] [address] [place] [address], * HEPATITIS C ANTIBODY (04/02/2019 10:10 AM ENTRY WRITER) HEPATITIS C AB NON-REACTI VE NON-REACT JING 04/03/2019 12:44 AM ENTRY WRITER [facility] Comment: ANTIBODIES TO HCV NOT DETECTED. DOES NOT EXCLUDE THE POSSIBILITY OF EXPOSURE TO HCV. 04/02/2019 10:1 0 AM ENTRY WRITER us Luis Daniel Burleson MD LABORATORY Final Res ult [facility] [address] [place] [address], [place] [phone] [id number] from Last 3 Months or Most Recently Relevant to Health Maintenance Insurance [place], [place] [id number] [place] [address] [facility] [address] [place] [phone] Advance Directives * Full Code (Latest Code Status on File) Date Activated Date Inactivated Comments 11/11/2019 6:18 AM 11/12/2019 3:34 AM Care Teams Elementary Teacher Relationship Specialty Start Date End Date Linette Roman NP [address] [place] [address] PCP - General NURSE PRACTITIONER 06/02/24
--- OUTSIDE RECORDS SUMMARY | 2025-02-16 00:24 | XMS_ITS | Clinical Summary ---
Author Organization [facility] [address] Address [address] [place] [address] Care Team Providers Care Music Library Assistant Name Role Phone Linette Roman NP Primary Care Provider Allergies Active Allergy Reactions Criticality Noted Date [...] on file Legal Sex Female 5:16 PM PROCESSING CLERK Gender Identity Not on file Sexual [...] patient's age to complete this topic Insurance [facility] H[facility]/PPO Address: [facility] [address] [place] [address] [place] [address] Care Teams Music Library Assistant Relationship Specialty Start Date End Date Linette Roman NP [facility] [place] [address] PCP - General Nurse Practitioner 08/20/23
[2025-02-16 06:47] VITALS: BP 117/75; PULSE 105; RESP 16; TEMP 36.4; O2SAT 97; BMI 29.4
[2025-02-16 06:55] LABS: BEDSIDEPREGUCG Negative (Negative)
[2025-02-16] MEDS: LACTATED RINGERS 1,000 ML 150 ML IV CONT (06:57)
--- NOTE | 2025-02-16 07:11 | P.PNAN_ITS ---
Anes - Initial Pre Proc Eval Procedure: Operation Date: 02/16/25 08:00 Proposed Procedures p EGD & Diagnostic Colonoscopy - Darrel Mccullough MD Date/Time: 02/16/25 07:11 Surgeon: Darrel Mccullough MD Pre Op Diagnosis: Eosinophilic esophagitis, Dysphagia, fecal urgency Patient Data Age: 29 Gender: F Height: 1.6 m Weight: 75.4 kg Last Vital Signs Temp 36.4 C L 02/16/25 06:47 Pulse 105 H 02/16/25 06:47 Resp 16 02/16/25 06:47 BP 117/75 02/16/25 06:47 Pulse Ox 97 02/16/25 06:47 O2 Del Method Room Air 02/16/25 06:47 Allergies Allergy/AdvReac Type Severity Reaction Status Date / Time ciprofloxacin (From Cipro) Allergy Intermediate Rash Verified 02/16/25 06:44 Sulfa (Sulfonamide Allergy Hives Verified 02/16/25 06:44 Antibiotics) metoclopramide (From Reglan) AdvReac Shakiness Verified 02/16/25 06:44 Home Medications ?Medication ?Instructions ?Recorded ?Confirmed ?Type alprazolam 0.25 mg tablet (Xanax) 0.25 mg PO DAILY PRN panic 12/08/24 02/04/25 Rx attack(s) #30 tabs ondansetron 4 mg disintegrating See Rx Instructions .R oute 01/08/25 02/16/25 Rx tablet .COMPLEX #30 tabs pantoprazole 40 mg tablet,delayed See Rx Instructions .Route 01/08/25 02/16/25 Rx release .COMPLEX #60 tabs dupilumab 300 mg/2 mL subcutaneous 300 mg (2 mL) subcu t WEEKLY 1 01/14/25 02/04/25 Rx syringe (Dupixent) month #10 mL fluoxetine 20 mg capsule 20 mg PO DAILY #90 caps 05/1002/16/25 Rx cetirizine 10 mg tablet (Aller-Soo) 10 mg PO DAILY PRN Allergies 02/04/25 02/04/25 History Laboratory Tests 02/16/25 06:47 POC Urine HCG, Qual Negative (Negative) Patient hx anesthesia problems: none Family hx anesthesia problems: none Results Review: All pre-operative results and documents have been reviewed as part of the pre- operative evaluation. [facility] Past Medical History Medical History (Updated 01/07/25 @ 09:21 by Darrel Mccullough MD) Fecal urgency Gestational diabetes insipidus IUP (intrauterine ), incidental Dysphagia History of esophageal dilatation Esophageal dilatation Eosinophilic esophagitis Surgical History Surgical History Hx laparoscopic cholecystectomy 06/10/[address] Shahid Family History Family History Grandparent Diabetes mellitus Hypertension Uterine cancer Mother Psoriatic arthritis Other Depression Social History Social History Smoking status: Never smoker Alcohol intake: current Drinks per week: 2 Alcohol use details: social Substance use: never Substance use type: does not use Do You Feel Safe in your Home?: Yes Lack of Transportation: No Lack of Food: Never True Current Housing: I Have Housing Concerned About Future Housing: No Difficulty Paying Gas/Electric Bills: No Difficulty Paying for Meds: No Currently Unemployed: No Education: Bachelor's Degree Difficulty w/ Childcare or Family Care: No Living arrangements: with family Gender identity (if verbalized by the patient): Female Spiritual care concerns: No Agree to blood products: Yes Anes - Eval Final PreProcedure Day of Procedure 02/16/25 07:11 Patient weight: overweight Heart: regular rate and rhythm Lungs: clear to auscultation Airway: Mallampati scale class II Neurological: alert and oriented Last oral intake: >/= 8 hours ASA classification: II Emergent: no Anesthetic plan: proceed Anesthesia type and monitoring: general GIVS and standard monitoring Results Review: All pre-operative results and documents have been reviewed as part of the pre- operative evaluation. Informed Consent: The patient's anesthetic plan and its attendant risks and benefits were discussed with the patient/family/POA. Questions were solicited and answers provided to the satisfaction of the patient/family/POA.
--- NOTE | 2025-02-16 08:09 | PM.HPGS ---
History of Present Illness History of Present Illness Consent: Risks, benefits, and alternatives have been discussed and questions answered. Patient agrees to proceed with procedure. Chief complaint: Eosinophilic esophagitis, Dysphagia, fecal urgency Narrative: Maria R Blair is a 29 year old female with eoe, recently with dysphagia again and finally started on dupixent about 4 weeks ago, also had urgency and here for first colonoscopy Review of Systems Review of Systems: All systems reviewed & are unremarkable except as noted in HPI and below PMFSH Past Medical History Medical History (Updated 01/07/25 @ 09:21 by Darrel Mccullough MD) Fecal urgency Gestational diabetes insipidus IUP (intrauterine ), incidental Dysphagia History of esophageal dilatation Esophageal dilatation Eosinophilic esophagitis Surgical History Surgical History Hx laparoscopic cholecystectomy 06/10/[address] Shahid Family History Family History Grandparent Diabetes mellitus Hypertension Uterine cancer Mother Psoriatic arthritis Other Depression Social History Social History Smoking status: Never smoker Alcohol intake: current Drinks per week: 2 Alcohol use details: social Substance use: never Substance use type: does not use Do You Feel Safe in your Home?: Yes Lack of Transportation: No Lack of Food: Never True Current Housing: I Have Housing Concerned About Future Housing: No Difficulty Paying Gas/Electric Bills: No Difficulty Paying for Meds: No Currently Unemployed: No Education: Bachelor's Degree Difficulty w/ Childcare or Family Care: No Living arrangements: with family Gender identity (if verbalized by the patient): Female Spiritual care concerns: No Agree to blood products: Yes Meds Home Medications and Allergies Home Medications ?Medication ?Instructions ?Recorded ?Confirmed ?Type alprazolam 0.25 mg tablet (Xanax) 0.25 mg PO DAILY PRN panic 12/08/24 02/04/25 Rx attack(s) #30 tabs ondansetron 4 mg disintegrating See Rx Instructions .Route 01/08/25 02/16/25 Rx tablet .COMPLEX #30 tabs pantoprazole 40 mg tablet,delayed See Rx Instructions .Route 01/08/25 02/16/25 Rx release .COMPLEX #60 tabs dupilumab 300 mg/2 mL subcutaneous 300 mg (2 mL) subcut WEEKLY 1 01/14/25 02/04/25 Rx syringe (Dupixent) month #10 mL fluoxetine 20 mg capsule 20 mg PO DAILY #90 caps 01/14/25 02/16/25 Rx cetirizine 10 mg tablet (Aller-Soo) 10 mg PO DAILY PRN Allergies 02/04/25 02/04/25 History Allergies Allergy/AdvReac Type Severity Reaction Status Date / Time ciprofloxacin (From Cipro) Allergy Intermediate Rash Verified 02/16/25 06:44 Sulfa (Sulfonamide Allergy Hives Verified 02/16/25 06:44 Antibiotics) metoclopramide (From Reglan) AdvReac Shakiness Verified 02/16/25 06:44 Vital Signs Vital Signs - 24 hr 02/16/25 06:47 Temperature 97.5 F L Pulse Rate 105 H Respiratory Rate 16 Blood Pressure 117/75 Pulse Oximetry 97 Oxygen Delivery Room Air Exam Const: General: comfortable and no acute distress HENMT: Face/Nose/Sinus: Normal nares present Eyes: General: appearance normal, both eyes and all related structures Neck: Neck: no JVD Resp: Auscultation: clear to auscultation bilaterally Cardio: Rate: regular rate Rhythm: regular rhythm GI: Inspection: non-distended GI Palp: Yes Soft to palpation Skin: General skin exam: normal color Neuro: General: gait normal Speech: normal speech Extrem: General: normal to inspection Psych: Mental Status: mental status grossly normal Assessment and Plan Assessment and plan (1) Eosinophilic esophagitis: Code(s): K20.0 - Eosinophilic esophagitis Status: Acute Assessment and Plan: egd already on dupixent (2) Fecal urgency: Code(s): R15.2 - Fecal urgency Status: Acute Assessment and Plan: colonoscopy
--- NOTE | 2025-02-16 08:26 | SUR.OPER ---
EGD end 820 COLONOSCOPY START 826
--- NOTE | 2025-02-16 08:36 | S_PTH ---
PATIENT: Maria R Blair LOC: [facility] Pink#:[id number] AGE/SX: 29/F ROOM: RE02/16/[address]: Darrel Mccullough MD : 1995 BED: DIS: 02/16/2025 SPEC #: [id number] RECD: 02/16/25 10:36 STATUS: [facility] #: [id number] MAR: 02/16/25 08:[address]: Darrel Mccullough DEPT: [facility] Surgical RECD BY: Yancy Ariza ENTERED: 02/16/25 10:38 SP TYPE: Surgical OTHR DR: Linetet Roman APRN Tissues: A - Esophageal Biopsy B - Esophageal Biopsy C - Gastric Biopsy D - Colon Biopsy Procedures: Hematoxylin and Eosin Stain Gross and Microscopic Level 4
[2025-02-16 08:40] VITALS: BP 96/59; PULSE 87; RESP 16; O2SAT 97
[2025-02-16 08:50] VITALS: BP 86/60; PULSE 78; RESP 15; O2SAT 97
[2025-02-16 09:00] VITALS: BP 104/61; PULSE 75; RESP 16; O2SAT 100
== END 2025-02-16 09:11 | disposition home or self-care (01) ==
PROVIDERS: Anesthesiology; PCP Nurse Practitioner Adult Health; Referring Provider Internal Medicine Gastroenterology; Visit Provider Internal Medicine Gastroenterology
PROC: 0DJ08ZZ Inspection of Upper Intestinal Tract, Via Natural or Artificial Opening Endoscopic (ICD-10-PCS; CPT 45378; principal; 2025-02-16 08:00)
DX: R15.2 Fecal urgency (principal); K21.00 Gastro-esophageal reflux disease with esophagitis, without bleeding
CPT/HCPCS: 45380; 43239; 88305; J2003; J2704; J7120